=== PATIENT | female | born 1945 | race Caucasian/White ===

== ENCOUNTER 2020-01-19 10:48 | Outpatient (CLI) | payer MEDICARE, BC, SELFPAY ==
--- NOTE | ~2020-01-19 | MM_ITS ---
EXAMINATION: MM screening [facility] [place] HISTORY: Screening mammogram TECHNIQUE: Craniocaudal and mediolateral oblique 3-D tomosynthesis images were obtained and synthetic 2-D images were generated. CAD analysis was submitted and interpreted. COMPARISON: 01/12/2019, 11/12/2017 BREAST PARENCHYMAL COMPOSITION: The breasts are almost entirely fatty. FINDINGS: Scattered benign-appearing calcifications are present. There is no evidence of suspicious m ass, calcification, or architectural distortion to suggest malignancy in either breast. There has bee n no suspicious interval change. IMPRESSION: 1. No mammographic evidence of malignancy. 2. Recommend routine screening mammography in one year. BI-RADS Category 2: Benign finding(s). Reviewed, dictated and finalized at location A.
== END 2020-01-19 10:49 | disposition home or self-care (01) ==
PROVIDERS: PCP Emergency Medicine; Visit Provider Emergency Medicine
DX: Z12.31 Encounter for screening mammogram for malignant neoplasm of breast (principal)
CPT/HCPCS: 77063; 77067

== ENCOUNTER 2020-04-11 02:20 | Outpatient (CLI) | payer MEDICARE, BC, SELFPAY ==
[2020-04-11 18:39] LABS: SARS-CoV-2 RNA PCR Negative
== END 2020-04-11 02:21 | disposition home or self-care (01) ==
LOC: ANHCOVIDDT 02:21
PROVIDERS: PCP Emergency Medicine; Visit Provider Internal Medicine Gastroenterology
DX: Z01.812 Encounter for preprocedural laboratory examination (principal); Z20.828 Contact with and (suspected) exposure to other viral communicable diseases
CPT/HCPCS: 87635; C9803; U0003

== ENCOUNTER 2020-04-13 00:22 | Day surgery (SDC) | payer MEDICARE, BC, SELFPAY ==
[2020-04-05 12:58] VITALS: BMI 35.2
[2020-04-13] MEDS: LACTATED RINGERS 1,000 ML 150 ML IV CONT (06:54)
--- NOTE | 2020-04-13 06:57 | WPDANESEPPF ---
Anes - Initial Pre Proc Eval Procedure: Operation Date: 04/13/20 08:00 Proposed Procedures p Colonoscopy - Dakota Garcia MD Date/Time: 04/13/20 06:57 Surgeon: Dakota Garcia MD Pre Op Diagnosis: Change In Bowel Patient Data Age: 74 Gender: F Height: 1.63 m Weight: 93 kg Allergies Allergy/AdvReac Type Severity Reaction Status Date / Time hydrocodone Allergy Severe NAUSEA AND Verified 04/13/20 06:57 DIZZINESS Sulfa (Sulfonamide Allergy Severe RASH/SOB Verified 04/13/20 06:57 Antibiotics) Cephalosporins Allergy Unknown Rash Verified 04/13/20 06:57 doxycycline Allergy Unknown Rash Verified 04/13/20 06:57 Penicillins Allergy Unknown Rash Verified 04/13/20 06:57 sulfamethizole Allergy Unknown Rash Verified 04/13/20 06:57 trimethoprim Allergy Unknown Rash Verified 04/13/20 06:57 codeine AdvReac Severe DIZZINESS,N Verified 04/13/20 06:57 AUSEA Home Medications Medication Instructions Recorded Confirmed Type cetirizine 10 mg tablet 10 mg PO DAILY PRN 08/23/19 04/05/20 History lifitegrast 5 % eye drops in a See Rx Instructions OPHTHALMIC 08/23/19 04/05/20 History dropperette (EYE) .COMPLEX verapamil 180 mg tablet,extended 180 mg PO .COMPLEX 08/23/19 04/05/20 History release simvastatin 10 mg tablet 10 mg PO .Daily in evening #90 09/15/19 04/05/20 Rx tablet losartan 100 mg tablet 100 mg PO .COMPLEX #90 tablet 11/03/19 04/05/20 Rx losartan 25 mg tablet 25 mg PO .COMPLEX #90 tablet 11/03/19 04/05/20 Rx tramadol 50 mg tablet 50 mg PO Q6H PRN #20 tablet 01/26/20 04/05/20 Rx pantoprazole 40 mg tablet,delayed 40 mg PO BID #180 tablet 02/10/20 04/05/20 Rx release sitagliptin 100 mg tablet 100 mg PO DAILY #90 tablet 02/27/20 04/05/20 Rx apixaban 5 mg tablet See Rx Instructions .ROUTE 03/02/20 04/05/20 Rx .COMPLEX #60 tablet levothyroxine 125 mcg tablet See Rx Instructions .ROUTE 03/20/20 04/05/20 Rx .COMPLEX #90 tablet acetaminophen [Tylenol Extra 1,000 mg PO BID PRN 04/05/20 04/05/20 History Strength] Patient hx anesthesia problems: none Family hx anesthesia problems: none [facility] Social History Social History Smoking status: Former smoker Alcohol intake: never Anes - Eval Final PreProcedure Day of Procedure 04/13/20 06:57 Patient weight: obese Heart: regular rate and rhythm Lungs: clear to auscultation and normal air movement Airway: Mallampati scale class II Neurological: alert and oriented Last oral intake: >/= 8 hours ASA classification: III Emergent: no Anesthetic plan: proceed Anesthesia type and monitoring: general GIVS Informed Consent: The patient's anesthetic plan and its attendant risks and benefits were discussed with the patient/family/POA. Questions were solicited and answers provided to the satisfaction of the patient/family/POA.
[2020-04-13 06:58] LABS: Glucose Point of Care 95 (65-105)
[2020-04-13 06:59] VITALS: BP 142/85; PULSE 67; RESP 18; TEMP 36.4; O2SAT 97; BMI 34.9
--- NOTE | 2020-04-13 07:25 | PM.HPGS ---
History of Present Illness History of Present Illness Consent: Risks, benefits, and alternatives have been discussed and questions answered. Patient agrees to proceed with procedure. Chief complaint: Change In Bowel Narrative: Ankita Kelley is a 74 year old female who has been bothered by frequent diarrhea. Some days she has several loose stools. She denies significant pain cramping. Has a family history of colon cancer in a cousin. [facility] Family History Family History Mother Hypertension Family history of coronary artery disease Family history of heart disease in male family member before age 55 Patient's mother is , Onset Age: 88 Sibling Hypertension Family history of diabetes mellitus in first degree relative Family history of lung cancer Family history of heart disease in male family member before age 55 Family history of malignant neoplasm, Onset Age: 62 Father Family history of diabetes mellitus in first degree relative Patient's father is , Onset Age: 51 Other Carcinoma of colon Social History Social History Smoking status: Former smoker Alcohol intake: never Meds Home Medications and Allergies Home Medications Medication Instructions Recorded Confirmed Type cetirizine 10 mg tablet 10 mg PO DAILY PRN 08/23/19 04/13/20 History lifitegrast 5 % eye drops in a See Rx Instructions OPHTHALMIC 08/23/19 04/13/20 History dropperette (EYE) .COMPLEX verapamil 180 mg tablet,extended 180 mg PO .COMPLEX 08/23/19 04/13/20 History release simvastatin 10 mg tablet 10 mg PO .Daily in evening #90 09/15/19 04/13/20 Rx tablet losartan 100 mg tablet 100 mg PO .COMPLEX #90 tablet 11/03/19 04/13/20 Rx losartan 25 mg tablet 25 mg PO .COMPLEX #90 tablet 11/03/19 04/13/20 Rx tramadol 50 mg tablet 50 mg PO Q6H PRN #20 tablet 01/26/20 04/13/20 Rx pantoprazole 40 mg tablet,delayed 40 mg PO BID #180 tablet 02/10/20 04/13/20 Rx release sitagliptin 100 mg tablet 100 mg PO DAILY #90 tablet 02/27/20 04/13/20 Rx apixaban 5 mg tablet See Rx Instructions .ROUTE 03/02/20 04/13/20 Rx .COMPLEX #60 tablet levothyroxine 125 mcg tablet See Rx Instructions .ROUTE 03/20/20 04/13/20 Rx .COMPLEX #90 tablet acetaminophen [Tylenol Extra 1,000 mg PO BID PRN 04/05/20 04/13/20 History Strength] Allergies Allergy/AdvReac Type Severity Reaction Status Date / Time hydrocodone Allergy Severe NAUSEA AND Verified 04/13/20 06:57 DIZZINESS Sulfa (Sulfonamide Allergy Severe RASH/SOB Verified 04/13/20 06:57 Antibiotics) Cephalosporins Allergy Unknown Rash Verified 04/13/20 06:57 doxycycline Allergy Unknown Rash Verified 04/13/20 06:57 Penicillins Allergy Unknown Rash Verified 04/13/20 06:57 sulfamethizole Allergy Unknown Rash Verified 04/13/20 06:57 trimethoprim Allergy Unknown Rash Verified 04/13/20 06:57 codeine AdvReac Severe DIZZINESS,N Verified 04/13/20 06:57 AUSEA Vital Signs Vital Signs - 24 hr 04/13/20 06:59 Temperature 36.4 C Pulse Rate 67 Respiratory Rate 18 Blood Pressure 142/85 H Pulse Oximetry 97 Exam Resp: Auscultation: clear to auscultation bilaterally Cardio: Rate: regular rate Rhythm: regular rhythm GI: GI Palp: Yes Soft to palpation and No Tenderness to palpation present (GI) Assessment and Plan Assessment and plan (1) Change in bowel habits: Code(s): R19.4 - Change in bowel habit Status: Acute Assessment and Plan: Colonoscopy with possible biopsy or polypectomy or cautery or injection of substances.
[2020-04-13] MEDS: SIMETHICONE ORAL SUSPENSION 20 MG/0.3 ML 30 ML BOTTLE 0.6 ML IRRIGATION (08:01)
[2020-04-13 08:11] VITALS: BP 117/71; PULSE 65; RESP 20; O2SAT 97
[2020-04-13 08:21] VITALS: BP 119/76; PULSE 63; RESP 20; O2SAT 96
[2020-04-13 08:31] VITALS: BP 137/82; PULSE 58; RESP 16; O2SAT 97
== END 2020-04-13 08:50 | disposition home or self-care (01) ==
PROVIDERS: PCP Emergency Medicine; Visit Provider Internal Medicine Gastroenterology
PROC: 0DJD8ZZ Inspection of Lower Intestinal Tract, Via Natural or Artificial Opening Endoscopic (ICD-10-PCS; CPT 45378; principal; 2020-04-13 08:00)
DX: R19.7 Diarrhea, unspecified (principal); K57.30 Diverticulosis of large intestine without perforation or abscess without bleeding; K64.4 Residual hemorrhoidal skin tags; Z79.01 Long term (current) use of anticoagulants; Z87.891 Personal history of nicotine dependence; E66.9 Obesity, unspecified; Z68.34 Body mass index [BMI] 34.0-34.9, adult
CPT/HCPCS: 45378; J2704; J7120

== ENCOUNTER 2020-05-17 10:49 | Emergency (ER) | payer MEDICARE, BC, SELFPAY ==
[2020-05-17 11:18] VITALS: BP 148/77; PULSE 70; RESP 20; TEMP 36.6; O2SAT 98
--- NOTE | 2020-05-17 11:46 | ED.FEMALEGU ---
HPI - Female Genitourinary General Chief complaint: Urogenital-Female Stated complaint: uti Source: patient Mode of arrival: ambulatory Limitations: no limitations History of Present Illness HPI Narrative: 74 year old female presents to complaints of urinary frequency, urgency, pain, burning lower abdominal pressure since yesterday. Patient reports that she has a long history of urinary tract infections. Patient reports that she was placed on Levaquin 3 to 4 months ago for urinary tract infection. Patient denies fever, bodies, chills, nausea, vomiting, diarrhea or vaginal discharge. MD elicited complaint: dysuria and UTI Vaginal discharge: none Vaginal bleeding: none Urinary symptoms: Dysuria, Urgency and Frequency Exacerbating factors: none Relieving factors: none Treatment prior to arrival: none Related Data Home Medications Medication Instructions Recorded Confirmed cetirizine 10 mg tablet 10 mg PO DAILY PRN 08/23/19 05/17/20 lifitegrast 5 % eye drops in a See Rx Instructions OPHTHALMIC 08/23/19 05/17/20 dropperette (EYE) .COMPLEX acetaminophen [Tylenol Extra 1,000 mg PO BID PRN 04/05/20 05/17/20 Strength] Allergies Allergy/AdvReac Type Severity Reaction Status Date / Time hydrocodone Allergy Severe NAUSEA AND Verified 05/17/20 11:33 DIZZINESS Sulfa (Sulfonamide Allergy Severe RASH/SOB Verified 05/17/20 11:33 Antibiotics) doxycycline Allergy Unknown Rash Verified 05/17/20 11:33 Penicillins Allergy Unknown Rash Verified 05/17/20 11:33 sulfamethizole Allergy Unknown Rash Verified 05/17/20 11:33 trimethoprim Allergy Unknown Rash Verified 05/17/20 11:33 codeine AdvReac Severe DIZZINESS,N Verified 05/17/20 11:33 AUSEA Review of Systems Review of Systems: All systems reviewed & are unremarkable except as noted in HPI and below Constitutional: Constitutional: Denies chills and Denies fatigue Cardiovascular: Cardiovascular: Denies no additional cardiovascular complaints, Denies chest pain and Denies radiating jaw, neck or arm pain Respiratory: Respiratory: Denies cough, Denies dyspnea and Denies wheezing Gastrointestinal: Gastrointestinal: Reports abdominal pain, Denies constipation, Denies diarrhea, Denies nausea and Denies vomiting Genitourinary: Genitourinary: Denies hematuria, Reports nocturia, Reports dysuria and Denies vaginal discharge Neurologic: Denies dizziness, Denies headache(s), Denies numbness and Denies weakness Endocrine: Endocrine: Denies fatigue PMFSH Past Medical History Medical History (Updated 05/17/20 @ 11:51 by Shahida Angelo APRN) Afib Cholecystectomy planned HLD (hyperlipidemia) HTN (hypertension) Hypothyroidism (acquired) Tonsillectomy planned Family History Family History Mother Hypertension Family history of coronary artery disease Family history of heart disease in male family member before age 55 Patient's mother is , Onset Age: 88 Sibling Hypertension Family history of diabetes mellitus in first degree relative Family history of lung cancer Family history of heart disease in male family member before age 55 Family history of malignant neoplasm, Onset Age: 62 Father Family history of diabetes mellitus in first degree relative Patient's father is , Onset Age: 51 Other Carcinoma of colon Social History Social History Smoking status: Former smoker Alcohol intake: never Exam Const: General: healthy appearing, no acute distress and alert Orientation/consciousness: patient oriented x3 Neck: Neck: normal visual inspection Resp: Effort & Inspection: normal respiratory effort, not labored and not tachypneic Auscultation: clear to auscultation bilaterally, no crackles, no rales, no rhonchi and no wheezes Cardio: Rate: regular rate, not bradycardic and not tachycardic Rhyt
== END 2020-05-17 12:00 | disposition home or self-care (01) ==
PROVIDERS: Emergency Provider Nurse Practitioner Family; PCP Emergency Medicine
DX: N39.0 Urinary tract infection, site not specified (principal); Z87.891 Personal history of nicotine dependence; I48.91 Unspecified atrial fibrillation; E78.5 Hyperlipidemia, unspecified; I10 Essential (primary) hypertension; E03.9 Hypothyroidism, unspecified
CPT/HCPCS: 81003; 87077; 87086; 87088; 87186; 99213; G0463

== ENCOUNTER → 2020-05-17 11:58 | Outpatient (CLI) | payer MEDICARE, BC, SELFPAY ==
--- NOTE | ~2020-05-17 | XR_ITS ---
EXAMINATION: XR shoulder LT min 2V DATE: 05/17/2020 12:21 INDICATION: Left shoulder pain. TECHNIQUE: 4 views of left shoulder were obtained. COMPARISON: None. FINDINGS: Bone alignment is normal. No fracture. There is mild osteoarthritis of glenohumeral joint a nd acromioclavicular joint. IMPRESSION: 1. Polyarticular osteoarthritis. Reviewed, dictated and finalized at location A.
--- NOTE | ~2020-05-17 | XR_ITS ---
EXAMINATION: XR shoulder RT min 2V DATE: 05/17/2020 12:22 INDICATION: Right shoulder pain. TECHNIQUE: 4 views of right shoulder were obtained. COMPARISON: Right shoulder radiographs 08/26/2017 FINDINGS: Bone alignment is normal. No fracture. There is mild osteoarthritis of glenohumeral joint a nd acromioclavicular joint. Calcified right hilar and mediastinal lymph nodes are consistent with old granulomatous disease. IMPRESSION: 1. Mild polyarticular osteoarthritis. Reviewed, dictated and finalized at location A.
== END ==
PROVIDERS: PCP Emergency Medicine; Visit Provider Emergency Medicine
DX: M19.011 Primary osteoarthritis, right shoulder (principal); M19.012 Primary osteoarthritis, left shoulder
CPT/HCPCS: 73030; 81003; 87077; 87086; 87088; 87186; 99213; G0463

== ENCOUNTER → 2020-07-25 12:06 | Outpatient (CLI) | payer MEDICARE, BC, SELFPAY ==
--- NOTE | ~2020-07-25 | MR_ITS ---
EXAMINATION: MR shoulder LT wo con DATE: 07/25/2020 13:36 INDICATION: Left shoulder pain and radiculopathy TECHNIQUE: Magnetic resonance imaging (MRI) of the left shoulder was performed without intravenous co ntrast. Sequences included axial PD-weighted FS FSE, coronal oblique PD-weighted FS FSE, coronal obli que T2-weighted FS FSE, sagittal PD-weighted FS FSE, and sagittal T1-weighted SE. COMPARISON: None. FINDINGS: Coracoacromial arch: The acromion undersurface is curved in morphology (type II). The coracoacromial ligament is normal. M ild acromioclavicular osteoarthritis. Rotator cuff: Mild supraspinatus and moderate infraspinatus tendinopathy without discrete tear. The teres minor ten don is normal. Mild subscapularis tendinopathy with small longitudinal split tear between the portion of the tendon attached to the lesser tuberosity and the right-sided portion of the tendon contiguous with the transverse humeral ligament. The tear measures 4 mm craniocaudally and propagating 1.5 cm m edially from the medial rim of the intertubercular groove. Normal rotator cuff muscle bulk and signal . Biceps tendon, glenoid labrum and glenohumeral cartilage: Long head of the biceps tendon is normal. There is a bucket-handle tear extending from the 11:30 posi tion of the superior glenoid labrum posteriorly to the 8:00 position. More irregular appearing tear a t the anterosuperior labrum which appears to extend into the superior glenohumeral and coracohumeral ligaments both which appear thickened with disorganized architecture consistent with partial tear. Th ere is a small likely paralabral cyst measuring 3 mm diameter and extending 11 mm anteroposteriorly a long the medial aspect of the coracohumeral ligament. Partial-thickness cartilage loss with smooth ch ondral surface and without degenerative subchondral changes along the apex and inferomedial aspects o f the humeral head. Glenoid cartilage appears relatively preserved. Fluid: Small glenohumeral joint effusion with proportional extension of a small amount fluid along the long head biceps tendon sheath an subcoracoid recess. No loose osteochondral bodies. Small amount of fluid in the subacromial/subdeltoid bursa consistent with mild bursitis. Bones: Normal marrow signal with no edema, fracture or pathologic marrow replacing process. IMPRESSION: 1. Mild subscapularis tendinopathy with small mild longitudinal split tear at the cephalad aspect of the tendon. 2. Mild supraspinatus and moderate infraspinatus tendinopathy without discrete tear. 3. Labral tear with irregular macerated appearance anteroinferiorly extending to the superior glenohu meral and coracohumeral ligaments and with bucket-handle configuration at the superior to posterior l abrum. 4. Mild glenohumeral and acromioclavicular osteoarthritis. Reviewed, dictated and finalized at location A. ICE CENTER TECHNICIAN IMPRESSION: 1. Mild subscapularis tendinopathy with small mild longitudinal split tear at t he cephalad aspect of the tendon. 2. Mild supraspinatus and moderate infraspinatus tendinopathy without discrete tear. 3. Labral tear with irregular macerated appearance anteroinferiorly extending t o the superior glenohumeral and coracohumeral ligaments and with bucket-handle configuration at the superior to posterior labrum. 4. Mild glenohumeral and acromioclavicular osteoarthritis.
== END ==
PROVIDERS: PCP Emergency Medicine; Visit Provider Emergency Medicine
DX: M54.10 Radiculopathy, site unspecified (principal); M19.012 Primary osteoarthritis, left shoulder
CPT/HCPCS: 73221

== ENCOUNTER → 2020-07-28 10:32 | Outpatient (CLI) | payer MEDICARE, BC, SELFPAY ==
--- NOTE | ~2020-07-28 | MR_ITS ---
EXAMINATION: MR shoulder RT wo con DATE: 07/28/2020 12:04 INDICATION: Severe right shoulder weakness and pain TECHNIQUE: Magnetic resonance imaging (MRI) of the right shoulder was performed without intravenous c ontrast. Sequences included axial PD-weighted FS FSE, coronal oblique PD-weighted FS FSE, coronal obl ique T2-weighted FS FSE, sagittal PD-weighted FS FSE, and sagittal T1-weighted SE. COMPARISON: Right shoulder radiographs dated 05/17/2020 FINDINGS: Coracoacromial arch: The acromion undersurface is curved in morphology (type II). The coracoacromial ligament is normal. M ild acromioclavicular osteoarthritis. Rotator cuff: Moderate supraspinatus, infraspinatus and subscapularis tendinopathy. There is a deep articular sided tear of the distal supraspinatus tendon which measures 8 mm AP along the superior facet footplate an d involves at least two thirds of the tendon thickness. Some of the remaining bursal sided fibers nash ear frayed and plaques and are of questionable functional integrity. The tear defect measures 1 cm me dial to lateral. There is a very small split tear between the bursal side of the subscapularis tendon and the course of the tendon attached to the medial rim of the intertubercular groove. Additional sm all longitudinal split tear with 8 x 5 x 1 mm intrasubstance fluid collection between the otherwise i ntact appearing fibers of the infraspinatus tendon approximately 1.5 cm from the middle facet footpla te. Normal rotator cuff muscle bulk and signal. Biceps tendon, glenoid labrum and glenohumeral cartilage: Moderate tendinopathy and longitudinal split tearing of the long head biceps tendon centered at the j unction of the intra-articular and extra articular portions of the tendon. Amorphous increased signal at the posterior superior glenoid labrum consistent with degenerative tearing which extends along th e free edge of the posterior labrum. Glenohumeral cartilage is normal. Fluid: Small glenohumeral joint effusion extends into the long head biceps tendon sheath. There is some debr is versus synovitis along side the long head biceps tendon at the level of the intertubercular groove . No loose osteochondral bodies. Fluid in the subacromial/subdeltoid bursa consistent with moderate b ursitis. Bones: Bone alignment is normal. No fracture or pathologic marrow replacing process. There are some cystic c hange along the lateral rim of the intertubercular groove. IMPRESSION: 1. Moderate rotator cuff tendinopathy with small deep articular sided tear at the distal supraspinatu s tendon and separate small intrasubstance longitudinal split tears at the distal subscapularis tendo n at the critical zone of the infraspinatus tendon. 2. Bicipital tenosynovitis with moderate tendinopathy and longitudinal split tearing at the junction of the intra-articular and extra articular portions of the tendon. 3. Degenerative tearing at the posterior superior to posterior glenoid labrum. 4. Likely reactive small glenohumeral joint effusion. 5. Moderate subacromial/subdeltoid bursitis. Reviewed, dictated and finalized at location A. TER LATHER IMPRESSION: 1. Moderate rotator cuff tendinopathy with small deep articular sided tear at t he distal supraspinatus tendon and separate small intrasubstance longitudinal s plit tears at the distal subscapularis tendon at the critical zone of the infra spinatus tendon. 2. Bicipital tenosynovitis with moderate tendinopathy and longitudinal split te aring at the junction of the intra-articular and extra articular portions of th e tendon. 3. Degenerative tearing at the posterior superior to posterior glenoid labrum. 4. Likely reactive small glenohumeral joint effusion. 5. Moderate subacromial/subdeltoid bursitis.
== END ==
PROVIDERS: PCP Emergency Medicine; Visit Provider Orthopaedic Surgery
DX: M25.411 Effusion, right shoulder (principal); M75.51 Bursitis of right shoulder; M75.21 Bicipital tendinitis, right shoulder
CPT/HCPCS: 73221

== ENCOUNTER 2020-08-08 12:48 | Outpatient (CLI) | payer MEDICARE, BC, SELFPAY ==
--- NOTE | ~2020-08-08 | XR_ITS ---
EXAMINATION: XR chest 2V 08/08/2020 13:18 INDICATION: Hypertension. Reflux. PROCEDURE: 2 view chest COMPARISON: Comparison to multiple prior studies sequentially, with oldest reviewed study dated 07/24. FINDINGS: The lungs are clear. The cardiomediastinal silhouette is within normal limits. There are no pleural effusions. There is no pneumothorax suspected. IMPRESSION: 1: NO ACUTE CARDIOPULMONARY DISEASE. Reviewed, dictated and finalized at location A. R BOAT CAPTAIN
--- NOTE | 2020-08-08 12:51 | ECG_ITS ---
Measurements Intervals Cougar Rate: 67 P: 43 HI: 131 QRS: 18 QRSD: 89 T: 31 QT: 412 QTc: 436 Interpretive Statements SINUS RHYTHM BASELINE ARTIFACT- I, II, AVR, AVL, AVF NORMAL ECG Electronically Signed On 08-08-2020 13:16:14 PROPERTY AND EQUIPMENT CLERK by Addy Giron D.O.
[2020-08-08 13:40] LABS: Anion Gap 8 mmol/L (8-16); Blood Urea Nitrogen 13 mg/dL (7-17); Calcium 9.6 mg/dL (8.4-10.2); Carbon Dioxide 30 mmol/L (22-30); Chloride 103 mmol/L (98-107); Estimated Glomerular Filt Rate > 60; Glucose 110 mg/dL (65-105); Potassium 4.2 mmol/L (3.4-5.0); Sodium 141 mmol/L (137-145)
== END 2020-08-08 12:49 | disposition home or self-care (01) ==
PROVIDERS: Anesthesiology; PCP Emergency Medicine; Visit Provider Orthopaedic Surgery
DX: Z01.818 Encounter for other preprocedural examination (principal); G56.01 Carpal tunnel syndrome, right upper limb; E11.9 Type 2 diabetes mellitus without complications; I10 Essential (primary) hypertension
CPT/HCPCS: 36415; 71046; 80048; 93005

== ENCOUNTER 2020-08-11 01:55 | Outpatient (CLI) | payer MEDICARE, BC, SELFPAY ==
[2020-08-11 18:59] LABS: SARS-CoV-2 RNA PCR Negative
== END 2020-08-11 01:56 | disposition home or self-care (01) ==
LOC: ANHCOVIDDT 01:55
PROVIDERS: PCP Emergency Medicine; Visit Provider Orthopaedic Surgery
DX: Z01.818 Encounter for other preprocedural examination (principal); Z20.828 Contact with and (suspected) exposure to other viral communicable diseases
CPT/HCPCS: 87635; C9803; U0003

== ENCOUNTER → 2020-08-13 12:27 | Outpatient (CLI) | payer MEDICARE, BC, SELFPAY ==
--- NOTE | ~2020-08-13 | XR_ITS ---
EXAMINATION: [id number] INDICATION: Left lateral chest pain TECHNIQUE: A frontal view of the chest and 3 views of the left ribs were obtained. COMPARISON: 08/08/2020 FINDINGS: The lungs are free of acute opacities. There is no pleural effusion or pneumothorax. The ca rdiomediastinal silhouette is normal. Calcified right hilar and mediastinal lymph nodes are consisten t with old granulomatous disease. No displaced rib fracture is identified. There is mild osteoarthrit is of the glenohumeral and acromioclavicular joints. Surgical clips in the right upper quadrant are l ikely from prior cholecystectomy. IMPRESSION: 1. No acute cardiopulmonary abnormality or evidence of displaced rib fracture. Reviewed, dictated and finalized at location A. ULATION REVIEWER
--- NOTE | ~2020-08-13 | XR_ITS ---
EXAMINATION: XR finger 2nd LT min 2V INDICATION: Left second finger pain TECHNIQUE: Four views of the left second finger are obtained. COMPARISON: 03/19/2019 FINDINGS: There is no fracture, dislocation, or subluxation. Moderate chronic osteoarthritis is noted in the interphalangeal joints there is soft tissue swelling of the second finger. IMPRESSION: 1. Soft tissue swelling of the second finger without acute osseous abnormality. Reviewed, dictated and finalized at location A. AGENT
== END ==
PROVIDERS: PCP Emergency Medicine; Visit Provider Emergency Medicine
DX: R52 Pain, unspecified (principal); M79.89 Other specified soft tissue disorders
CPT/HCPCS: 71101; 73140

== ENCOUNTER 2021-03-21 16:15 | Outpatient (CLI) | payer MEDICARE, BC, SELFPAY ==
--- NOTE | ~2021-03-21 | MM_ITS ---
EXAMINATION: MM screening [facility] [place] HISTORY: Screening mammogram TECHNIQUE: Craniocaudal and mediolateral oblique 3-D tomosynthesis images were obtained and synthetic 2-D images were generated. CAD analysis was submitted and interpreted. COMPARISON: 01/19/2020, 01/12/2019, 11/12/2017 bilateral digital screening mammogram examinations BREAST PARENCHYMAL COMPOSITION: The breasts are almost entirely fatty. FINDINGS: Multiple bilateral benign calcifications are again noted. There is no evidence of suspiciou s mass, calcification, or architectural distortion to suggest malignancy in either breast. There has been no suspicious interval change. IMPRESSION: 1. No mammographic evidence of malignancy. 2. Recommend routine screening mammography in one year. BI-RADS Category 2: Benign finding(s). Reviewed, dictated and finalized at location A.
== END 2021-03-21 16:16 | disposition home or self-care (01) ==
LOC: ANHIMG 16:17
PROVIDERS: PCP Emergency Medicine; Visit Provider Emergency Medicine
DX: Z12.31 Encounter for screening mammogram for malignant neoplasm of breast (principal)
CPT/HCPCS: 77063; 77067

== ENCOUNTER 2021-08-02 14:04 | Emergency (ER) | payer MEDICARE, BC, SELFPAY ==
--- NOTE | ~2021-08-02 | CT_ITS ---
EXAMINATION: CT brain wo [facility] EXAM DATE: 08/02/2021 14:55 INDICATION: Fall, posterior head injury. TECHNIQUE: Spiral CT of the head was performed without contrast. Axial, coronal and sagittal images were reviewed. The dose-length product (DLP) for this examination was 605.33 mGy-cm. The exposure w as tailored according to patient size, and iterative reconstruction (ASIR) was used as additional dos e reduction technique. There is no prior study for comparison. FINDINGS: There is no acute intraparenchymal hemorrhage. No evidence of intraparenchymal brain mass lesion. No evidence of acute infarction. Please note that initial head CT has limited sensitivity f or small or acute infarctions. There is mild periventricular and subcortical hypodensity, nonspecifi c but probably related to small vessel ischemic disease. There is moderate prominence of the sulci and ventricles related to cerebral atrophy. There is intracranial carotid arteriosclerosis. There are no extra-axial collections. There is no mass effect or midline shift. Patient has had bilateral ocular lens surgery. Soft tissue is unremarkable. The visualized sinuses and mastoid air cells are well aerated. IMPRESSION: 1. No acute intracranial findings. 2. Chronic age related findings. Reviewed, dictated and finalized at location A. STITCH HEMMER
--- NOTE | ~2021-08-02 | XR_ITS ---
EXAMINATION: XR hip LT 2V w AP pelvis EXAM DATE: 08/02/2021 15:02 INDICATION: Initial encounter following injury, with pain of the left hip. TECHNIQUE: Left hip frontal, 'frog leg' projections for interpretation. Frontal projection pelvis. There is no prior study for comparison. FINDINGS: Smooth left hip femoral head contour, no radiographic evidence of avascular necrosis. Ther e is mild symmetric bilateral hip primary osteoarthritis. There are no acute fractures or dislocation s identified. There is no subcutaneous gas. The soft tissue is unremarkable. There are no radiopa que foreign bodies. IMPRESSION: No acute osseous findings. Reviewed, dictated and finalized at location A. ERCIAL LENDER IMPRESSION: No acute osseous findings.
[2021-08-02 14:15] VITALS: BP 147/79; PULSE 74; RESP 18; TEMP 36.2; O2SAT 99
--- NOTE | 2021-08-02 14:29 | ED.FALL ---
HPI - Fall General Chief Complaint: Fall Stated Complaint: fall Time Seen by Provider: 08/02/21 14:23 Source: RN notes reviewed History of Present Illness HPI Narrative: Patient presents emergency department from home for a fall. Patient states that prior to arrival she was sitting on a barstool wrapping [place] presents when she dropped the tape she bit down to get the tape the barstool fell back and feeling on her buttocks falling back and striking her head. She denies any loss of consciousness states that she is on Eliquis and came to the ER secondary concern of head bleed. She does note pain in her left buttocks and hip region as well she has been able to walk following the accident did not take any pain medication she denies any vision changes numbness or tingling in extremities chest pain shortness of breath abdominal pain nausea vomiting or any other symptoms Related Data Home Medications Medication Instructions Recorded Confirmed cetirizine 10 mg tablet 10 mg PO DAILY PRN 08/23/19 08/07/20 lifitegrast 5 % eye drops in a 1 drp OPHTHALMIC (EYE) BID 08/23/19 08/07/20 dropperette acetaminophen [Tylenol Extra 1,000 mg PO BID PRN 04/05/20 08/07/20 Strength] losartan 25 mg PO QPM 08/07/20 08/07/20 apixaban 5 mg tablet 5 mg PO BID tablet 04/02/21 tramadol 50 mg tablet See Rx Instructions .ROUTE .COMPLEX 04/02/21 Allergies Allergy/AdvReac Type Severity Reaction Status Date / Time Sulfa (Sulfonamide Allergy Severe RASH/SOB Verified 07/16/21 15:17 Antibiotics) Penicillins Allergy Unknown Rash, HIVES Verified 07/16/21 15:17 sulfamethizole Allergy Unknown Rash Verified 07/16/21 15:17 trimethoprim Allergy Unknown Rash Verified 07/16/21 15:17 codeine AdvReac Severe DIZZINESS,NAUSEA, Verified 07/16/21 15:17 VOMITING hydrocodone AdvReac Severe NAUSEA,VOMITING, Verified 07/16/21 15:17 DIZZINESS doxycycline AdvReac Unknown RINGING IN Verified 07/16/21 15:17 EARS, DIZZINESS Review of Systems Review of Systems: Gen.: Denies fevers or chills Eyes: Denies eye pain or visual change ENT: Denies congestion Respiratory: Denies shortness of breath or cough CV: Denies chest pain or palpitations GI: Denies abdominal pain nausea, emesis or diarrhea Musculoskeletal: See HPI Neuro: Reports striking head denies loss of consciousness Skin: Denies rash Except as documented, all other systems reviewed and negative PMFSH Past Medical History Medical History (Updated 08/02/21 @ 15:16 by Maurice Yepez DO) Afib Cholecystectomy planned HLD (hyperlipidemia) HTN (hypertension) Hypothyroidism (acquired) Tonsillectomy planned Family History Family History Mother Hypertension Family history of coronary artery disease Family history of heart disease in male family member before age 55 Patient's mother is , Onset Age: 88 Sibling Hypertension Family history of diabetes mellitus in first degree relative Family history of lung cancer Family history of heart disease in male family member before age 55 Family history of malignant neoplasm, Onset Age: 62 Father Family history of diabetes mellitus in first degree relative Patient's father is , Onset Age: 51 Other Carcinoma of colon Social History Social History Smoking packs per day: 1 Smoking cigarettes per day: 20.0 Years smoked: 7 Smoking pack-years: 7.00 Smoking status: Former smoker Smoking end date: 02/21/70 Alcohol intake: never Substance use: never Spiritual care concerns: No Exam Narrative: APPEARANCE: Well appearing, no apparent distress, well-nourished. HEENT: normocephalic mild swelling ecchymosis over left occiput no facial tenderness EYES: PERRL NECK: Supple. No midline tenderness to palpation. Full range of motion without pain RESPIRATORY: No respi
[2021-08-02] MEDS: ACETAMINOPHEN 500 MG TABLET 1000 MG PO (15:10)
[2021-08-02 15:40] VITALS: TEMP 36.2
== END 2021-08-02 15:40 | disposition home or self-care (01) ==
LOC: ANHED 15:37
PROVIDERS: Emergency Provider Emergency Medicine; PCP Emergency Medicine
DX: S00.03XA Contusion of scalp, initial encounter (principal); S70.02XA Contusion of left hip, initial encounter; I48.91 Unspecified atrial fibrillation; E78.5 Hyperlipidemia, unspecified; I10 Essential (primary) hypertension; E03.9 Hypothyroidism, unspecified; Z79.01 Long term (current) use of anticoagulants; Z87.891 Personal history of nicotine dependence; W08.XXXA Fall from other furniture, initial encounter
CPT/HCPCS: 70450; 73502; 99284; A9270

== ENCOUNTER → 2021-08-22 09:35 | Outpatient (CLI) | payer MEDICARE, BC, SELFPAY ==
[2021-08-22 20:33] LABS: SARS-CoV-2 RNA PCR Negative
== END ==
PROVIDERS: PCP Emergency Medicine; Visit Provider Nurse Practitioner Family
DX: R68.89 Other general symptoms and signs (principal); Z20.822 Contact with and (suspected) exposure to COVID-19
CPT/HCPCS: C9803; U0003; U0005

== ENCOUNTER 2022-04-14 12:38 | Outpatient (CLI) | payer MEDICARE, BC, SELFPAY ==
--- NOTE | ~2022-04-14 | MM_ITS ---
EXAMINATION: MM screening [facility] BI w [place] HISTORY: Screening TECHNIQUE: Craniocaudal and mediolateral oblique 3-D tomosynthesis images were obtained and synthetic 2-D images were generated. CAD analysis was submitted and interpreted. COMPARISON: Comparison to multiple prior studies sequentially, with oldest reviewed study dated 11/12. BREAST PARENCHYMAL COMPOSITION: The breasts are almost entirely fatty. FINDINGS: There are benign bilateral breast calcifications. There is no evidence of suspicious mass, calcification, or architectural distortion to suggest malignancy in either breast. There has been no suspicious interval change. IMPRESSION: 1. No mammographic evidence of malignancy. 2. Recommend routine screening mammography in one year. BI-RADS Category 1: Negative Reviewed, dictated and finalized at location A.
== END 2022-04-14 12:39 | disposition home or self-care (01) ==
LOC: ANHIMG 12:39
PROVIDERS: PCP Emergency Medicine; Visit Provider Emergency Medicine
DX: Z12.31 Encounter for screening mammogram for malignant neoplasm of breast (principal)
CPT/HCPCS: 77063; 77067

== ENCOUNTER 2022-11-19 09:55 | Outpatient (CLI) | payer MEDICARE, BC, SELFPAY ==
[2022-11-19 19:16] LABS: Alanine Aminotransferase 19 U/L (6-35); Albumin Level 4.5 g/dL (3.5-5.1); Alkaline Phosphatase 47 U/L (38-126); Anion Gap 10 mmol/L (8-16); Aspartate Amino Transferase 22 U/L (14-36); Bilirubin,Total 0.7 mg/dL (0.2-1.3); Blood Urea Nitrogen 18 mg/dL (7-17); Calcium 9.2 mg/dL (8.4-10.2); Carbon Dioxide 21 mmol/L (22-30); Chloride 108 mmol/L (98-107); Cholesterol 161 mg/dL (0-200); Estimated Glomerular Filt Rate 48; Glucose 120 mg/dL (65-110); HDL Direct 40 mg/dL; Potassium 4.5 mmol/L (3.4-5.0); Sodium 139 mmol/L (137-145); Triglycerides 185 mg/dL (<150)
[2022-11-19 19:27] LABS: LDL Cholesterol Direct 88 mg/dL
[2022-11-19 19:40] LABS: Hemoglobin A1C 6.1 % (<5.7)
== END 2022-11-19 09:56 | disposition home or self-care (01) ==
PROVIDERS: PCP Emergency Medicine; Visit Provider Emergency Medicine
DX: E11.9 Type 2 diabetes mellitus without complications (principal); I10 Essential (primary) hypertension; E78.5 Hyperlipidemia, unspecified; I48.0 Paroxysmal atrial fibrillation
CPT/HCPCS: 36415; 80053; 80061; 83036; 84443

== ENCOUNTER 2023-02-27 14:40 | Emergency (ER) | payer MEDICARE, BC, SELFPAY ==
[2023-02-27 14:58] VITALS: BP 126/72; PULSE 84; RESP 16; TEMP 36.7; O2SAT 100
--- NOTE | 2023-02-27 14:58 | ED.LOWEXIN ---
HPI - Extremity Injury (Lower) General Chief Complaint: Extremity Injury, Lower Stated Complaint: Injured left lower leg Time Seen by Provider: 02/27/23 14:58 Source: patient Mode of arrival: ambulatory Limitations: no limitations History of Present Illness HPI Narrative: 77 yo F presents with abrasions to L ibarra. Four days ago was climbing up onto chair to clean top of her fridge but slipped and L ibarra hit against wooden chair causing multiple abrasions. Pt states she had bruising and swelling. has been elevating when at rest. found some old clindamycin and has been taking 1 pill twice a day for 2 days. Today reports increase in pain and swelling and feels like L leg is warm to touch. afebrile. Ambulatory with normal gait. All systems reviewed and negative except as noted above. Related Data Home Medications Medication Instructions Recorded Confirmed cetirizine 10 mg tablet (Zyrtec) 10 mg PO DAILY PRN Allergy Symptoms 08/23/19 02/27/23 lifitegrast 5 % eye drops in a 1 drp ophthalmic (eye) BID 08/23/19 02/27/23 dropperette (Xiidra) acetaminophen 500 mg tablet 1,000 mg PO BID PRN Pain 04/05/20 02/27/23 (Tylenol Extra Strength) tramadol 50 mg tablet See Rx Instructions .Route .COMPLEX 04/02/21 02/27/23 medroxyprogesterone 5 mg tablet 5 mg PO DAILY 01/29/22 02/27/23 spironolactone 25 mg tablet See Rx Instructions .Route .COMPLEX 01/29/22 02/27/23 Allergies Allergy/AdvReac Type Severity Reaction Status Date / Time Sulfa (Sulfonamide Allergy Severe RASH/SOB Verified 02/27/23 14:50 Antibiotics) Penicillins Allergy Unknown Rash, HIVES Verified 02/27/23 14:50 sulfamethizole Allergy Unknown Rash Verified 02/27/23 14:50 trimethoprim Allergy Unknown Rash Verified 02/27/23 14:50 codeine AdvReac Severe DIZZINESS,NAUSEA, Verified 02/27/23 14:50 VOMITING hydrocodone AdvReac Severe NAUSEA,VOMITING, Verified 02/27/23 14:50 DIZZINESS doxycycline AdvReac Unknown RINGING IN Verified 02/27/23 14:50 EARS, DIZZINESS Review of Systems Review of Systems: CONSTITUTIONAL: Denies fever, chills, or sweats. EYES: Denies visual changes, redness, or discharge. ENT: Denies rhinorrhea, congestion, sore throat, or otalgia. CARDIOVASCULAR: Denies chest pain, palpitations, or edema. RESPIRATORY: Denies cough or dyspnea. GASTROINTESTINAL: Denies abdominal pain, nausea, vomiting, or diarrhea. GENITOURINARY: Denies dysuria or hematuria. SKIN: Reports multiple abrasions to left ibarra with swelling, redness and warmth to touch. MUSCULOSKELETAL: Denies back pain, joint pain, or myalgia. NEUROLOGIC: Denies headache, numbness, or weakness. PSYCHIATRIC: Denies anxiety or depression. All other systems reviewed are negative, except as documented in HPI. [facility] Past Medical History Medical History (Updated 02/27/23 @ 15:08 by Maame Sullivan NP) Afib Cholecystectomy planned HLD (hyperlipidemia) HTN (hypertension) Hypothyroidism (acquired) Tonsillectomy planned Family History Family History Mother Hypertension Family history of coronary artery disease Family history of heart disease in male family member before age 55 Patient's mother is , Onset Age: 88 Sibling Hypertension Family history of diabetes mellitus in first degree relative Family history of lung cancer Family history of heart disease in male family member before age 55 Family history of malignant neoplasm, Onset Age: 62 Father Family history of diabetes mellitus in first degree relative Patient's father is , Onset Age: 51 Other Carcinoma of colon Social History Social History Smoking packs per day: 1 Smoking cigarettes per day: 20.0 Years smoked: 7 Smoking pack-years: 7.00 Smoking status: Former smoker Smoking end date: 02/21/70 Alcohol intake: never Substance use: nev
== END 2023-02-27 15:11 | disposition home or self-care (01) ==
PROVIDERS: Emergency Provider Nurse Practitioner Family; PCP Emergency Medicine
DX: L03.116 Cellulitis of left lower limb (principal); Z87.891 Personal history of nicotine dependence; I48.91 Unspecified atrial fibrillation; E78.5 Hyperlipidemia, unspecified; I10 Essential (primary) hypertension; E03.9 Hypothyroidism, unspecified
CPT/HCPCS: 99213; G0463

== ENCOUNTER 2023-04-16 12:17 | Outpatient (CLI) | payer MEDICARE, BC, SELFPAY ==
--- NOTE | ~2023-04-16 | MM_ITS ---
EXAMINATION: MM screening [facility] w [place] HISTORY: Screening mammogram TECHNIQUE: Craniocaudal and mediolateral oblique 3-D tomosynthesis images were obtained and synthetic 2-D images were generated. CAD analysis was submitted and interpreted. COMPARISON: 04/14/2022, 03/21/2021 bilateral screening mammogram examinations BREAST PARENCHYMAL COMPOSITION: The breasts are almost entirely fatty. FINDINGS: Multiple bilateral benign calcifications are again noted. There is no evidence of suspiciou s mass, calcification, or architectural distortion to suggest malignancy in either breast. There has been no suspicious interval change. IMPRESSION: 1. No mammographic evidence of malignancy. 2. Recommend routine screening mammography in one year. BI-RADS Category 2: Benign finding(s). Reviewed, dictated and finalized at location A.
== END 2023-04-16 12:18 | disposition home or self-care (01) ==
LOC: CHSIMG 12:18
PROVIDERS: PCP Emergency Medicine
DX: Z12.31 Encounter for screening mammogram for malignant neoplasm of breast (principal)
CPT/HCPCS: 77063; 77067

== ENCOUNTER 2023-06-04 11:22 | Outpatient (CLI) | payer MEDICARE, BC, SELFPAY ==
[2023-06-04 19:25] LABS: Alanine Aminotransferase 20 U/L (6-35); Albumin Level 4.2 g/dL (3.5-5.1); Alkaline Phosphatase 60 U/L (38-126); Anion Gap 8 mmol/L (8-16); Aspartate Amino Transferase 35 U/L (14-36); Bilirubin,Total 0.8 mg/dL (0.2-1.3); Blood Urea Nitrogen 14 mg/dL (7-17); Calcium 8.9 mg/dL (8.4-10.2); Carbon Dioxide 22 mmol/L (22-30); Chloride 107 mmol/L (98-107); Cholesterol 159 mg/dL (0-200); Estimated Glomerular Filt Rate 48; Glucose 183 mg/dL (65-110); HDL Direct 37 mg/dL; Sodium 137 mmol/L (137-145); Triglycerides 174 mg/dL (<150)
[2023-06-04 19:36] LABS: LDL Cholesterol Direct 88 mg/dL
[2023-06-04 19:44] LABS: Vitamin D 25 Hydroxy 23.6 ng/mL
[2023-06-04 20:20] LABS: Hematocrit 42.3 % (37.0-47.0); Hemoglobin 14.1 g/dL (12.0-15.0); Mean Corpuscular HGB Conc 33.3 g/dl (32-36); Mean Corpuscular Volume 95.9 fl (80-100); Mean Platelet Volume 10.5 fl (7.4-10.4); Platelet Count Result 292 k/mm3 (150-375); Red Blood Count 4.41 M/mm3 (4.2-5.4); Red Cell Distribution Width 12.8 % (11.5-14.5); White Blood Count 12.8 K/mm3 (4.5-10.0)
[2023-06-04 21:36] LABS: Hemoglobin A1C 6.2 % (<5.7)
[2023-06-07 12:45] LABS: Vitamin D 1,25 (OH)2 Total 17 pg/mL (18-72); Vitamin D2 1,25 (OH)2 <8 pg/mL; Vitamin D3 1,25 (OH)2 17 pg/mL
== END 2023-06-04 11:23 | disposition home or self-care (01) ==
PROVIDERS: PCP Emergency Medicine; Visit Provider Emergency Medicine
DX: E55.9 Vitamin D deficiency, unspecified (principal); I10 Essential (primary) hypertension; E78.5 Hyperlipidemia, unspecified; E11.9 Type 2 diabetes mellitus without complications; E03.9 Hypothyroidism, unspecified
CPT/HCPCS: 36415; 80053; 80061; 82306; 82652; 83036; 84443; 85027

== ENCOUNTER 2023-08-18 13:00 | Outpatient (RCR) | payer MEDICARE, BC, SELFPAY ==
--- NOTE | 2023-08-05 14:34 | OTOPEVAL1 ---
Assessment and note entered by Brandt Collado, DIAMOND/Gardenia, CHT Evaluation Information Diagnosis Right CMC OA, trigger thumb left thumb, right middle finger trigger finger Subjective Information Patient is right handed. Reports she has been dropping items, having difficulty tying shoes, opening jars, etc. She has had injections in the right thumb CMC and left thumb A1 ricky. This has provided some relief. Assessment OT Clinical Summary Patient referred to OT with right thumb CMC OA, right middle finger trigger finger, and left thumb trigger thumb. She has been having difficulties with ADLs due to the pain, reporting she frequently drops items. Skilled OT indicated for use of modalities, manual therapy, therapeutic activities/exercise, orthotic fabrication and fitting, and education on adaptive equipment and joint protection techniques to facilitate optimal functional hand use. Plan of Care Interventions Therapeutic Exercise,Manual Therapy,Therapeutic Activities,Hot Pack/Cold Pack,Check Out for Orthotic/Pr,Ultrasound,Paraffin OT Services Indicated Yes Treatment Frequency and 2x/week for 4 weeks Duration These treatments will address the objective and functional deficits as defined above. The patient will be advanced safely and appropriately in order for the patient to progress towards his/her prior level of function. Additional exercises will be introduced and as well as a comprehensive home exercise program upon discharge, if needed, ?to ensure carryover of functional gains achieved in the clinic. This treatment plan has been reviewed and agreement upon by the patient.
--- NOTE | 2023-08-05 14:34 | OPREHPOC ---
Outpatient Therapy Plan of Care This is a Multidisciplinary Plan of Care that may contain components documented by all disciplines (PT, OT, and ST.) OT Problem 1 OT Problem #1 Knowledge Deficit OT Goal 1 Goal 1. Patient to be independent with instructed materials. 2. Patient to adhere to splint wearing schedule. Target Visit 8 OT Problem 2 OT Problem #2 Pain OT Goal 1 Goal 1. Patient to report reduced pain in bilateral hands during ADLs to 1/10 or less. Target Visit 8 OT Problem 3 OT Problem #3 Impaired Strength OT Goal 1 Goal 1. Patient to be able to complete light computer programming professor/pinch strengthening HEP x5 minutes with at least yellow theraputty without reports of pain or flexor tendon triggering . Target Visit 8
--- NOTE | 2023-08-11 15:39 | PCOTNOTE ---
Patient called & cancelled scheduled appointment this date.
--- NOTE | 2023-08-13 15:19 | PCOTNOTE ---
Patient did not show up for scheduled appointment this date. Called patient who reports she's in the ER with/for her .
--- NOTE | 2023-08-27 10:07 | PCOTNOTE ---
Patient called and cancelled stating she hurt her knee and will reschedule the re-eval another time.
--- NOTE | 2023-09-01 15:42 | OTOPDC ---
Assessment and note entered by Brandt Collado, DIAMOND/Gardenia, OT DISCHARGE NOTE 09/01/23 OT Clinical Summary Patient referred to OT with dx of right CMC OA, left trigger thumb, right middle finger trigger finger. She progressed to no longer experiencing any triggering. A hand based thumb spica was fabricated for CMC OA and she reports good fit. She unfortunately was unable to return for more therapy sessions due to having too much going on at home. Discharging today without a formal reassessment.
== END 2023-09-02 09:08 | disposition home or self-care (01) ==
LOC: ANHGOSHOT 13:00
PROVIDERS: PCP Emergency Medicine; Visit Provider Plastic Surgery
DX: M18.11 Unilateral primary osteoarthritis of first carpometacarpal joint, right hand (principal); M65.312 Trigger thumb, left thumb
CPT/HCPCS: 97018; 97110; 97165; 99199; L3913; L3933

== ENCOUNTER 2023-08-25 09:44 | Emergency (ER) | payer MEDICARE, BC, SELFPAY ==
--- NOTE | ~2023-08-25 | CT_ITS ---
EXAMINATION: CT knee LT wo con DATE: 08/25/2023 11:47 INDICATION: Left knee pain TECHNIQUE: High resolution computed tomography (CT) of the left knee was performed without intravenou s contrast. Additional sagittal and coronal reconstructions were performed. Automated exposure contro l and iterative reconstruction technique were employed. The dose-length product was 648.16 mGy-cm. COMPARISON: Left knee radiographs dated 08/25/2023 FINDINGS: Again seen is a cemented left total knee arthroplasty with patellar resurfacing which remains in near -anatomic alignment. No periprosthetic lucency to suggest loosening or infection. No fracture. No lef t knee joint effusion. Peripheral vascular calcifications along the popliteal artery extending into t he anterior and posterior tibial and peroneal arteries at the proximal calf. Soft tissues are unremar kable. IMPRESSION: 1. Left total knee arthroplasty in near-anatomic alignment. No joint effusion or acute osseous abnorm ality. Reviewed, dictated and finalized at location A. ICATIONS DEVELOPER IMPRESSION: 1. Left total knee arthroplasty in near-anatomic alignment. No joint effusion o r acute osseous abnormality.
--- NOTE | ~2023-08-25 | XR_ITS ---
Left Knee Technique: AP, lateral, and sunrise views were obtained. Clinical History: Pain Findings: No fracture or dislocation is seen. Left knee arthroplasty hardware is in place. Soft tissu es are unremarkable. No joint effusion is seen. Impression: No acute abnormality. Left knee arthroplasty in place. Reviewed, dictated and finalized at location . K SWITCHER Impression: No acute abnormality. Left knee arthroplasty in place.
--- NOTE | ~2023-08-25 | XR_ITS ---
AP view of the pelvis and AP and lateral views of the left hip Clinical history: Pain Findings: No acute fracture or dislocation is seen. Osseous alignment is anatomic. Bilateral hip and SI joint spaces are preserved. Soft tissues are unremarkable. Impression: No significant abnormality is seen. Reviewed, dictated and finalized at [facility]. ATRIC NURSE Impression: No significant abnormality is seen.
[2023-08-25 10:07] VITALS: BP 151/106; PULSE 69; RESP 16; TEMP 36.4; O2SAT 98
--- NOTE | 2023-08-25 11:00 | ED.LOWEXIN ---
HPI - Extremity Injury (Lower) General Chief Complaint: Extremity Injury, Lower Stated Complaint: knee and hip pain Time Seen by Provider: 08/25/23 11:01 Source: patient Mode of arrival: ambulatory Limitations: no limitations History of Present Illness HPI Narrative: Ankita is a 77-year-old female patient presenting to the ER today with complaints of left knee and hip pain. She reports that she tweaked her knee yesterday. Also reports that she fell on her knee 2 weeks ago. Is having pain in the joint of the knee. History of left knee arthroplasty. Is having most pain with ambulation Related Data Home Medications Medication Instructions Recorded Confirmed cetirizine 10 mg tablet (Zyrtec) 10 mg PO DAILY PRN Allergy Symptoms 08/23/19 07/31/23 lifitegrast 5 % eye drops in a 1 drp ophthalmic (eye) BID 08/23/19 07/31/23 dropperette (Xiidra) acetaminophen 500 mg tablet 1,000 mg PO BID PRN Pain 04/05/20 07/31/23 (Tylenol Extra Strength) tramadol 50 mg tablet See Rx Instructions .Route .COMPLEX 04/02/21 07/31/23 medroxyprogesterone 5 mg tablet 5 mg PO DAILY 01/29/22 07/31/23 spironolactone 25 mg tablet See Rx Instructions .Route .COMPLEX 01/29/22 07/31/23 nitrofurantoin 100 mg PO BID 06/03/23 07/31/23 monohydrate/macrocrystals 100 mg capsule (Macrobid) metoprolol succinate 50 mg 50 mg PO DAILY 06/26/23 07/31/23 tablet,extended release 24 hr Allergies Allergy/AdvReac Type Severity Reaction Status Date / Time Sulfa (Sulfonamide Allergy Severe RASH/SOB Verified 07/31/23 08:49 Antibiotics) Penicillins Allergy Unknown Rash, HIVES Verified 07/31/23 08:49 sulfamethizole Allergy Unknown Rash Verified 07/31/23 08:49 trimethoprim Allergy Unknown Rash Verified 07/31/23 08:49 codeine AdvReac Severe DIZZINESS,NAUSEA, Verified 07/31/23 08:49 VOMITING hydrocodone AdvReac Severe NAUSEA,VOMITING, Verified 07/31/23 08:49 DIZZINESS doxycycline AdvReac Unknown RINGING IN Verified 07/31/23 08:49 EARS, DIZZINESS Review of Systems Review of Systems: Pertinent positives per HPI. Patient denies any fever, chills, rash, headache, visual changes, dizziness, cough, runny nose, sore throat, shortness of breath, chest pain, palpitations, nausea, vomiting, diarrhea, constipation, abdominal pain, or any urinary issues. [facility] Past Medical History Medical History (Updated 08/25/23 @ 13:02 by Don Pa APRN) Afib Cholecystectomy planned HLD (hyperlipidemia) HTN (hypertension) Hypothyroidism (acquired) Tonsillectomy planned Family History Family History Mother Hypertension Family history of coronary artery disease Family history of heart disease in male family member before age 55 Patient's mother is , Onset Age: 88 Sibling Hypertension Family history of diabetes mellitus in first degree relative Family history of lung cancer Family history of heart disease in male family member before age 55 Family history of malignant neoplasm, Onset Age: 62 Father Family history of diabetes mellitus in first degree relative Patient's father is , Onset Age: 51 Other Carcinoma of colon Social History Social History Smoking packs per day: 1 Smoking cigarettes per day: 20.0 Years smoked: 7 Smoking pack-years: 7.00 Smoking status: Former smoker Smoking end date: 02/21/70 Alcohol intake: never Substance use: never Lack of Transportation: No Lack of Food: Never True Current Housing: I Have Housing Concerned About Future Housing: No Difficulty Paying Gas/Electric Bills: No Difficulty Paying for Meds: No Currently Unemployed: No Education: Associate Degree Difficulty w/ Childcare or Family Care: No Living arrangements: with family Spiritual care concerns: No Comments At the time of my signatu
[2023-08-25 13:10] VITALS: BP 152/100; PULSE 74; RESP 17; O2SAT 97
== END 2023-08-25 13:16 | disposition home or self-care (01) ==
PROVIDERS: Emergency Provider Nurse Practitioner Family; PCP Emergency Medicine
DX: M25.562 Pain in left knee (principal); M54.32 Sciatica, left side; I10 Essential (primary) hypertension; E78.5 Hyperlipidemia, unspecified; E03.9 Hypothyroidism, unspecified; I48.91 Unspecified atrial fibrillation; Z87.891 Personal history of nicotine dependence; W19.XXXA Unspecified fall, initial encounter
CPT/HCPCS: 73502; 73564; 73700; 99284

== ENCOUNTER → 2023-09-03 13:50 | Outpatient (CLI) | payer MEDICARE, BC, SELFPAY ==
--- NOTE | ~2023-09-03 | MR_ITS ---
. EXAMINATION: MR lumbar spine wo con DATE: 09/03/2023 14:43 INDICATION: Lumbar radiculopathy. Low back pain. TECHNIQUE: Magnetic resonance imaging (MRI) of the lumbar spine was performed without intravenous con trast. Sequences included sagittal T2-weighted FSE, sagittal T2-weighted FS FSE, sagittal T1-weighted FSE, and axial T2-weighted FSE. COMPARISON: Lumbar spine MRI 11/14/2005 FINDINGS: There is 6 degrees levocurvature of lumbar spine. There is 3 mm anterolisthesis of L3 on L4 . Vertebral body heights are normal. There is moderately decreased disc height at L2-L3 and L3-L4 and severely decreased disc height at L4-L5 and L5-S1. The distal spinal cord signal intensity is normal . The conus medullaris is at L1-L2. The following disc levels are specifically discussed: L1-L2: The disc does not extend beyond the endplate margin. There is severe bilateral facet joint ost eoarthritis. There is no neural foraminal stenosis. There is no central canal stenosis. L2-L3: The disc is bulging and has an annular fissure. There is severe bilateral facet joint osteoart hritis. There is mild bilateral neural foraminal stenosis. There is mild central canal stenosis. L3-L4: The disc is bulging with superimposed left foraminal extrusion. There is severe bilateral face t joint osteoarthritis. There is moderate and moderate left neural foraminal stenosis. There is mild central canal stenosis. L4-L5: The disc is bulging and has an annular fissure. There is severe bilateral facet joint osteoart hritis. There is moderate bilateral neural foraminal stenosis. There is mild central canal stenosis. L5-S1: The disc is bulging and has an annular fissure. There is mild bilateral facet joint osteoarthr itis. There is mild bilateral neural foraminal stenosis. There is mild central canal stenosis. IMPRESSION: 1. Severe lumbar spondylosis, worsened from 11/14/2005. Reviewed, dictated and finalized at location A. MOBILE WASHER STEAM
== END ==
PROVIDERS: PCP Emergency Medicine; Visit Provider Orthopaedic Surgery
DX: M43.06 Spondylolysis, lumbar region (principal)
CPT/HCPCS: 72148

== ENCOUNTER 2023-09-29 15:44 | Outpatient (CLI) | payer MEDICARE, BC, SELFPAY ==
[2023-09-29 20:07] LABS: Alanine Aminotransferase 17 U/L (6-35); Albumin Level 4.6 g/dL (3.5-5.1); Alkaline Phosphatase 56 U/L (38-126); Anion Gap 7 mmol/L (8-16); Aspartate Amino Transferase 27 U/L (14-36); Bilirubin,Total 0.6 mg/dL (0.2-1.3); Blood Urea Nitrogen 16 mg/dL (7-17); Calcium 9.8 mg/dL (8.4-10.2); Carbon Dioxide 24 mmol/L (22-30); Chloride 110 mmol/L (98-107); Estimated Glomerular Filt Rate 54; Glucose 128 mg/dL (65-110); Sodium 141 mmol/L (137-145)
[2023-09-29 20:16] LABS: Hemoglobin A1C 7.4 % (<5.7)
== END 2023-09-29 15:45 | disposition home or self-care (01) ==
LOC: ANHGOSHLAB 15:47
PROVIDERS: PCP Emergency Medicine; Visit Provider Family Medicine
DX: I48.0 Paroxysmal atrial fibrillation (principal); E03.9 Hypothyroidism, unspecified; E11.9 Type 2 diabetes mellitus without complications; I10 Essential (primary) hypertension
CPT/HCPCS: 36415; 80053; 83036; 84443

== ENCOUNTER 2023-11-06 16:02 | Emergency (ER) | payer MEDICARE, BC, SELFPAY ==
[2023-11-06] VITALS (14 sets, daily range): BP systolic 89–150; BP diastolic 59–82; PULSE 67–137; RESP 13–17; TEMP 36.6–36.9; O2SAT 97–99
--- NOTE | ~2023-11-06 | XR_ITS ---
EXAMINATION: XR chest 1V portable 11/06/2023 16:30 INDICATION: Dizziness. Atrial fibrillation. PROCEDURE: AP portable chest COMPARISON: Comparison to multiple prior studies sequentially, with oldest reviewed study dated 07/25. FINDINGS: The lungs are clear. The cardiomediastinal silhouette is within normal limits. There are no pleural effusions. There is no pneumothorax suspected. IMPRESSION: 1: NO ACUTE CARDIOPULMONARY DISEASE. Reviewed, dictated and finalized at location A.
--- NOTE | 2023-11-06 16:05 | ECG_ITS ---
Measurements Intervals [place] Rate: 128 P: 60 [place]: 129 QRS: 30 QRSD: 122 T: 12 QT: 346 QTc: 505 Interpretive Statements SINUS RHYTHM WITH INTERMITTENT ATRIAL TACHYCARDIA WITH RAPID VENTRICULAR RESPONSE RIGHT BUNDLE BRANCH BLOCK BASELINE ARTIFACT- II, III, AVL, AVF ABNORMAL ECG COMPARED TO ECG 08/08/2020 13:30:45 INTERMITTENT ATRIAL TACHYCARDIA NOW PRESENT RIGHT BUNDLE-BRANCH BLOCK NOW PRESENT Electronically Signed On 11-06-2023 16:39:52 CDT by Addy Giron D.O.
[2023-11-06] MEDS: LACTATED RINGERS 1,000 ML 999 ML IV CONT ×2 (16:19→17:31)
[2023-11-06] MEDS: METOPROLOL TARTRATE INJ 5 MG/5 ML VIAL IV PUSH ×2 (16:20→16:31)
[2023-11-06 16:29] LABS: Basophils Absolute Auto 0.1 K/mm3 (0.0-0.1); Basophils Percent Auto 0.6 % (0.2-1.2); Eosinophils Absolute Auto 0.1 K/mm3 (0-0.3); Eosinophils Percent Auto 0.5 % (0-4.4); Hematocrit 45.8 % (37.0-47.0); Hemoglobin 15.3 g/dL (12.0-15.0); Immature Granulocyte Absolute 0.05 K/mm3 (0.00-0.031); Immature Granulocyte Percent A 0.3 % (0-0.5); Lymphocytes Absolute Auto 4.61 K/mm3 (0.9-3.2); Lymphocytes Percent Auto 31.3 % (18.3-44.2); Mean Corpuscular HGB Conc 33.4 g/dl (32-36); Mean Corpuscular Hemoglobin 30.8 pg (26-34); Mean Corpuscular Volume 92.3 fl (80-100); Mean Platelet Volume 10.1 fl (7.4-10.4); Monocytes Absolute Auto 1.2 K/mm3 (0.1-0.6); Monocytes Percent Auto 8.1 % (2.6-8.5); Neutrophils Absolute Auto 8.7 K/mm3 (1.3-6.7); Neutrophils Percent Auto 59.2 % (45.5-73.1); Platelet Count Result 260 k/mm3 (150-375); Red Blood Count 4.96 M/mm3 (4.2-5.4); Red Cell Distribution Width 13.2 % (11.5-14.5); White Blood Count 14.7 K/mm3 (4.5-10.0)
[2023-11-06] MEDS: METOPROLOL TARTRATE 50 MG TAB 25 MG PO (16:30)
--- NOTE | 2023-11-06 16:32 | ED.CHESTPAIN ---
HPI - Chest Pain General Chief Complaint: Chest Pain Stated Complaint: CP, dizziness Time Seen by Provider: 11/06/23 16:08 History of Present Illness HPI narrative: patient presenting here with palpitations, she does have a history palpitations/ SVT, for which she is taking metoprolol. She was in the GI lab with her , who is very sick, and has been feeling pretty stressed about it. She felt the palpitations coming on, today 25 mg p.r.n. dose of her metoprolol tartrate, has not felt any improvement, so came in here. Getting slightly lightheaded with the rate being high. Feels like she may not have had enough to drink recently. Related Data Home Medications Medication Instructions Recorded Confirmed lifitegrast 5 % eye drops in a 1 drp ophthalmic (eye) BID 08/23/19 09/29/23 dropperette (Xiidra) medroxyprogesterone 5 mg tablet 5 mg PO DAILY 01/29/22 09/29/23 cetirizine 10 mg tablet (Zyrtec) 10 mg PO DAILY Allergy Symptoms 09/16/23 09/29/23 metoprolol succinate 50 mg 75 mg PO DAILY 09/16/23 09/29/23 tablet,extended release 24 hr acetaminophen 500 mg tablet 1,000 mg PO QHS PRN Pain 09/29/23 09/29/23 (Tylenol Extra Strength) losartan 100 mg tablet 100 mg PO DAILY 09/29/23 09/29/23 losartan 25 mg tablet 25 mg PO DAILY 09/29/23 09/29/23 metoprolol tartrate 25 mg tablet 25 mg PO .PRN 09/29/23 09/29/23 pantoprazole 40 mg tablet,delayed 40 mg PO DAILY 09/29/23 09/29/23 release simvastatin 10 mg tablet 10 mg PO QHS 09/29/23 09/29/23 sitagliptin phosphate 100 mg 100 mg PO DAILY 09/29/23 09/29/23 tablet (Januvia) spironolactone 25 mg tablet 25 mg PO DAILY 09/29/23 09/29/23 tramadol 50 mg tablet 50 mg PO QID PRN 09/29/23 09/29/23 Allergies Allergy/AdvReac Type Severity Reaction Status Date / Time Sulfa (Sulfonamide Allergy Severe RASH/SOB Verified 02/06/24 14:38 Antibiotics) Penicillins Allergy Unknown Rash, HIVES Verified 09/29/23 14:38 codeine AdvReac Severe DIZZINESS,NAUSEA, Verified 09/29/23 14:38 VOMITING hydrocodone AdvReac Severe NAUSEA,VOMITING, Verified 09/29/23 14:38 DIZZINESS doxycycline AdvReac Unknown RINGING IN Verified 09/29/23 14:38 EARS, DIZZINESS Review of Systems Review of Systems: CONST: No fever. HEENT: No sore throat C/V: Palpitations RESP: No cough GI: No abdominal pain : No dysuria. M/S: No joint pain. SKIN: No rash. NEURO: lightheadedness PSYCH: stressed PMFSH Past Medical History Medical History Afib Arthritis Cervical spinal stenosis Chronic back pain Diabetes mellitus Environmental allergies GERD (gastroesophageal reflux disease) HLD (hyperlipidemia) HTN (hypertension) Hypothyroidism (acquired) IBS (irritable bowel syndrome) Irritable bowel syndrome with diarrhea Lumbar spondylosis Spinal stenosis Trigger finger, right middle finger Vitamin D deficiency disease Surgical History Surgical History History of cholecystectomy (~2006) History of hysteroscopy (~05/2023) History of left knee replacement (~2016) History of tonsillectomy (~1951) Family History Family History Mother Hypertension Family history of coronary artery disease Family history of heart disease in male family member before age 55 Patient's mother is , Onset Age: 88 Sibling Hypertension Family history of diabetes mellitus in first degree relative Family history of lung cancer Family history of heart disease in male family member before age 55 Family history of malignant neoplasm, Onset Age: 62 Father Family history of diabetes mellitus in first degree relative Patient's father is , Onset Age: 51 Hypertension Other Carcinoma of colon Social History Social History Smoking pa
[2023-11-06 16:38] LABS: INR 1.2; Prothrombin Time 15.6 Seconds (11.1-14.7)
[2023-11-06 16:40] LABS: Alanine Aminotransferase 20 U/L (6-35); Albumin Level 4.7 g/dL (3.5-5.1); Alkaline Phosphatase 59 U/L (38-126); Anion Gap 10 mmol/L (8-16); Aspartate Amino Transferase 26 U/L (14-36); Bilirubin,Total 0.7 mg/dL (0.2-1.3); Blood Urea Nitrogen 18 mg/dL (7-17); Calcium 9.8 mg/dL (8.4-10.2); Carbon Dioxide 21 mmol/L (22-30); Chloride 109 mmol/L (98-107); Estimated CRCL calculation 49 ml/min; Estimated Glomerular Filt Rate > 60; Glucose 129 mg/dL (65-110); Lipase 146 U/L (23-300); Partial Thromboplastin Time 30.9 Seconds (22.3-36.8); Potassium 4.1 mmol/L (3.4-5.0); Sodium 140 mmol/L (137-145)
[2023-11-06 16:45] LABS: Magnesium 1.7 mg/dL (1.6-2.3)
[2023-11-06 16:51] LABS: Troponin I < 0.012 ng/mL (0.000-0.034)
[2023-11-06] MEDS: dilTIAZem HCl INJ 25 MG/5 ML VIAL 15 MG IV PUSH (16:54)
[2023-11-06] MEDS: dilTIAZem 100 MG/100 ML 100 MG/100 ML BAG IV CONT (17:00)
--- NOTE | 2023-11-06 17:25 | ECG_ITS ---
Measurements Intervals [place] Rate: 74 P: 85 CT: 124 QRS: 30 QRSD: 126 T: 11 QT: 394 QTc: 438 Interpretive Statements SINUS RHYTHM RIGHT BUNDLE BRANCH BLOCK BASELINE ARTIFACT- I, III, AVR, AVL, AVF, V2, V4-V6 ABNORMAL ECG COMPARED TO ECG 11/06/2023 16:10:21 SINUS RHYTHM NOW PRESENT Electronically Signed On 11-06-2023 20:28:57 CDT by Addy Giron D.O.
[2023-11-06 19:54] LABS: Free T4 Free Thyroxine Reflex 0.96 ng/dL (0.78-2.19)
[2023-11-06 21:03] LABS: Total Triiodothyronine (T3) 0.93 NG/ML (0.97-1.69)
== END 2023-11-06 18:17 | disposition home or self-care (01) ==
PROVIDERS: Family Medicine; Emergency Provider Emergency Medicine; PCP Family Medicine
DX: I47.10 Supraventricular tachycardia, unspecified (principal); I48.91 Unspecified atrial fibrillation; I10 Essential (primary) hypertension; E11.9 Type 2 diabetes mellitus without complications; E03.9 Hypothyroidism, unspecified; E55.9 Vitamin D deficiency, unspecified; K21.9 Gastro-esophageal reflux disease without esophagitis; K58.9 Irritable bowel syndrome, unspecified; M19.90 Unspecified osteoarthritis, unspecified site; Z96.652 Presence of left artificial knee joint; Z87.891 Personal history of nicotine dependence; Z90.49 Acquired absence of other specified parts of digestive tract; Z79.01 Long term (current) use of anticoagulants; Z79.84 Long term (current) use of oral hypoglycemic drugs; I45.10 Unspecified right bundle-branch block; I47.19 Other supraventricular tachycardia
CPT/HCPCS: 36415; 71045; 80053; 83690; 83735; 84439; 84443; 84480; 84484; 85025; 85610; 85730; 93005; 96361; 96365; 96375; 99284; A9270; J7120

== ENCOUNTER 2023-11-12 11:17 | Outpatient (CLI) | payer MEDICARE, BC, SELFPAY | END 2023-11-12 11:18 | disposition home or self-care (01) | LOC: ANHGOSHLAB 11:20 | PROVIDERS: PCP Family Medicine; Visit Provider Family Medicine | DX: I48.0 Paroxysmal atrial fibrillation (principal); E03.9 Hypothyroidism, unspecified | CPT/HCPCS: 36415; 84443 ==

== ENCOUNTER 2024-02-29 10:07 | Emergency (ER) | payer MEDICARE, BC, SELFPAY ==
[2024-02-29] VITALS (13 sets, daily range): BP systolic 89–138; BP diastolic 52–89; PULSE 59–186; RESP 14–18; TEMP 36.7–36.8; O2SAT 97–100
--- NOTE | ~2024-02-29 | XR_ITS ---
EXAMINATION: XR chest 2V DATE: 02/29/2024 10:50 INDICATION: Atrial fibrillation presenting with palpitations TECHNIQUE: frontal and lateral views of the chest were obtained. COMPARISON: Chest radiograph dated 11/06/2023 FINDINGS: The lungs remain clear with no focal airspace opacities, pulmonary edema, pleural effusion or pneumot horax. Heart size is normal. Calcified right hilar and mediastinal lymph nodes consistent with old gr anulomatous disease. IMPRESSION: 1. No acute cardiopulmonary disease. Reviewed, dictated and finalized at location A.
--- NOTE | 2024-02-29 10:15 | ECG_ITS ---
Test Date: 2024-02-29 11:49:51 Measurements Intervals [place] Rate: 59 P: 50 WA: 141 QRS: 26 QRSD: 130 T: 7 QT: 444 QTc: 442 Interpretive Statements SINUS BRADYCARDIA WITH SINUS ARRHYTHMIA RIGHT BUNDLE BRANCH BLOCK BASELINE ARTIFACT- I, II, III, AVR, AVL, AVF, V1 ABNORMAL ECG No previous ECG available for comparison Electronically Signed On 02-29-2024 12:05:55 CDT by Addy Giron D.O.
[2024-02-29] MEDS: dilTIAZem HCl INJ 25 MG/5 ML VIAL 10 MG IV PUSH (10:30)
--- NOTE | 2024-02-29 10:38 | ED.SOB ---
HPI - SOB/Dyspnea General Chief Complaint: Shortness of Breath/Dyspnea Stated Complaint: SOB Time Seen by Provider: 02/29/24 10:16 Source: patient and old records reviewed Mode of arrival: EMS Limitations: no limitations History of Present Illness HPI Narrative: Patient is a 78 y/o female who presents to the ED via EMS with report of palpitations. Patient reports hx of AFIB/SVT, chronically anticoagulated on Eliquis. Was seen in the ED in October for these sx's, intermittent sinus rhythm with brief episodes of SVT. patient converted with diltiazem in the ED and was ultimately discharged home. She reports she began feeling recurrent palpitations this morning while driving to a doctor's appointment. She notes she feels very dizzy with the episodes of tachycardia. She then contacted EMS. Patient feels diaphoretic and dizzy currently. Denies chest pain. Denies shortness of breath. She does admit to nausea. She did take her home metoprolol this morning. Related Data Home Medications Medication Instructions Recorded Confirmed lifitegrast 5 % eye drops in a 1 drp ophthalmic (eye) BID 08/23/19 02/29/24 dropperette (Xiidra) medroxyprogesterone 5 mg tablet 5 mg PO DAILY 01/29/22 02/29/24 cetirizine 10 mg tablet (Zyrtec) 10 mg PO DAILY Allergy Symptoms 09/16/23 02/29/24 metoprolol succinate 50 mg 75 mg PO DAILY 09/16/23 02/29/24 tablet,extended release 24 hr acetaminophen 500 mg tablet 1,000 mg PO QHS PRN Pain 09/29/23 02/29/24 (Tylenol Extra Strength) pantoprazole 40 mg tablet,delayed 40 mg PO DAILY 09/29/23 02/29/24 release spironolactone 25 mg tablet 25 mg PO DAILY 09/29/23 02/29/24 tramadol 50 mg tablet 50 mg PO QID PRN Pain (Scale Score 09/29/23 02/29/24 7-10) empagliflozin 10 mg tablet 10 mg PO DAILY 02/29/24 02/29/24 (Jardiance) metoprolol succinate 100 mg mg PO 02/29/24 tablet,extended release 24 hr Allergies Allergy/AdvReac Type Severity Reaction Status Date / Time Sulfa (Sulfonamide Allergy Severe RASH/SOB Verified 02/29/24 14:44 Antibiotics) Penicillins Allergy Unknown Rash, HIVES Verified 02/29/24 14:44 codeine AdvReac Severe DIZZINESS,NAUSEA, Verified 02/29/24 14:44 VOMITING hydrocodone AdvReac Severe NAUSEA,VOMITING, Verified 02/29/24 14:44 DIZZINESS doxycycline AdvReac Unknown RINGING IN Verified 02/29/24 14:44 EARS, DIZZINESS Review of Systems Review of Systems: CONSTITUTIONAL: Denies fever, chills, or sweats. CARDIOVASCULAR: See HPI. RESPIRATORY: Denies cough or dyspnea. GASTROINTESTINAL: See HPI. NEUROLOGIC: See HPI All systems reviewed & are unremarkable except as noted in HPI and below PMFSH Past Medical History Medical History Afib Arthritis Cervical spinal stenosis Chronic back pain Diabetes mellitus Environmental allergies GERD (gastroesophageal reflux disease) HLD (hyperlipidemia) HTN (hypertension) Hypothyroidism (acquired) IBS (irritable bowel syndrome) Irritable bowel syndrome with diarrhea Lumbar spondylosis Spinal stenosis Trigger finger, right middle finger Vitamin D deficiency disease Surgical History Surgical History History of cholecystectomy (~2006) History of hysteroscopy (~05/2023) History of left knee replacement (~2016) History of tonsillectomy (~1951) Family History Family History Mother Hypertension Family history of coronary artery disease Family history of heart disease in male family member before age 55 Patient's mother is , Onset Age: 88 Sibling Hypertension Family history of diabetes mellitus in first degree relative Family history of lung cancer Family history of heart disease in male family member before age 55 Family history of malignant neoplasm, Onset Age: 62 Father Family
[2024-02-29 10:39] LABS: Basophils Absolute Auto 0.1 K/mm3 (0.0-0.1); Basophils Percent Auto 0.7 % (0.2-1.2); Eosinophils Absolute Auto 0.1 K/mm3 (0-0.3); Eosinophils Percent Auto 0.8 % (0-4.4); Hematocrit 45.2 % (37.0-47.0); Hemoglobin 15.5 g/dL (12.0-15.0); Immature Granulocyte Absolute 0.03 K/mm3 (0.00-0.031); Immature Granulocyte Percent A 0.2 % (0-0.5); Lymphocytes Absolute Auto 6.58 K/mm3 (0.9-3.2); Lymphocytes Percent Auto 48.3 % (18.3-44.2); Mean Corpuscular HGB Conc 34.3 g/dl (32-36); Mean Corpuscular Hemoglobin 30.9 pg (26-34); Mean Platelet Volume 10.4 fl (7.4-10.4); Monocytes Absolute Auto 1.3 K/mm3 (0.1-0.6); Monocytes Percent Auto 9.3 % (2.6-8.5); Neutrophils Absolute Auto 5.5 K/mm3 (1.3-6.7); Neutrophils Percent Auto 40.7 % (45.5-73.1); Platelet Count Result 249 k/mm3 (150-375); Red Blood Count 5.02 M/mm3 (4.2-5.4); Red Cell Distribution Width 13.2 % (11.5-14.5); White Blood Count 13.6 K/mm3 (4.5-10.0)
[2024-02-29 10:49] LABS: INR 1.3; Prothrombin Time 16.3 Seconds (11.1-14.7)
[2024-02-29 10:50] LABS: Partial Thromboplastin Time 29.6 Seconds (22.3-36.8)
[2024-02-29 10:59] LABS: NT Pro B Type Natriuretic Pept 814 pg/mL (19.9-100)
[2024-02-29 11:01] LABS: Alanine Aminotransferase 18 U/L (6-35); Albumin Level 4.6 g/dL (3.5-5.1); Alkaline Phosphatase 54 U/L (38-126); Anion Gap 14 mmol/L (4-12); Aspartate Amino Transferase 22 U/L (14-36); Bilirubin,Total 0.9 mg/dL (0.2-1.3); Blood Urea Nitrogen 19 mg/dL (7-17); Calcium 9.3 mg/dL (8.4-10.2); Carbon Dioxide 18 mmol/L (22-30); Chloride 111 mmol/L (98-107); Estimated CRCL calculation 49 ml/min; Estimated Glomerular Filt Rate 60; Glucose 159 mg/dL (65-110); Magnesium 1.8 mg/dL (1.6-2.3); Potassium 3.6 mmol/L (3.4-5.0); Sodium 143 mmol/L (137-145)
[2024-02-29] MEDS: SODIUM CHLORIDE 0.9% IV 1,000 ML 999 ML IV CONT (11:05)
[2024-02-29] MEDS: ONDANSETRON INJ 4 MG/2 ML VIAL IV PUSH (11:05)
[2024-02-29 11:12] LABS: Troponin I < 0.012 ng/mL (0.000-0.034)
[2024-02-29 11:38] LABS: Appearance Urine Clear (Clear); Bacteria Urine Rare /hpf; Bilirubin Urine Negative (Negative); Blood Urine Negative (Negative); Color Urine Yellow (Yellow); Glucose Urine UA 3+ mg/dL (Negative); Ketones Urine Negative (Negative); Leukocyte Esterase Ur Negative LEU/UL (Negative); Nitrate Urine Negative (Negative); Non Pathogenic Casts 0-2; Protein Urine Trace mg/dL (Negative); RBC Urine 0-2 /hpf (0-2); Specific Grav Ur 1.027 (1.001-1.035); Squamous Epithelial Cell Urine None Seen /hpf (Few); Urobilinogen Urine 0.2 mg/dL (<2.0); WBC Urine 0-5 /hpf (0-3); pH Urine 5.5 (5.0-9.0)
[2024-02-29 11:40] LABS: Add Urine Microscopic? YES
--- NOTE | 2024-02-29 11:43 | ECG_ITS ---
Test Date: 2024-02-29 10:16:33 Measurements Intervals [place] Rate: 162 P: 0 WA: 0 QRS: 62 QRSD: 114 T: -5 QT: 284 QTc: 466 Interpretive Statements SINUS RHYTHM CHANGES TO SUPRAVENTRICULAR TACHYCARDIA RIGHT BUNDLE BRANCH BLOCK ABNORMAL ECG No previous ECG available for comparison Electronically Signed On 02-29-2024 15:12:24 CDT by Addy Giron D.O.
--- NOTE | 2024-02-29 13:08 | PC.NURSE ---
Monique from [facility] transfer line called for pt update. Update given. Pt placed on waitlist.
[2024-02-29 14:10] LABS: Troponin I < 0.012 ng/mL (0.000-0.034)
--- NOTE | 2024-02-29 15:51 | PC.NURSE ---
Attempted to call report to [facility], unable to take report at this time
--- NOTE | 2024-02-29 17:14 | PC.NURSE ---
Pt informed of delay with EMS for transfer. Voices understanding
--- NOTE | 2024-02-29 17:17 | PC.NURSE ---
Heart healthy diet tray given
--- NOTE | 2024-02-29 17:53 | PC.NURSE ---
Report given to Yoselin [facility] Pt transfered to [facility]
== END 2024-02-29 17:55 | disposition short-term general hospital (02) ==
LOC: ANHED 10:28
PROVIDERS: Emergency Provider Physician Assistant; PCP Family Medicine
DX: I47.9 Paroxysmal tachycardia, unspecified (principal); M19.90 Unspecified osteoarthritis, unspecified site; G89.29 Other chronic pain; E11.9 Type 2 diabetes mellitus without complications; K21.9 Gastro-esophageal reflux disease without esophagitis; I10 Essential (primary) hypertension; E03.9 Hypothyroidism, unspecified; Z79.01 Long term (current) use of anticoagulants
CPT/HCPCS: 36415; 71046; 80053; 81001; 83735; 83880; 84443; 84484; 85025; 85610; 85730; 93005; 96361; 96374; 96375; 99285; J2405; J7030

== ENCOUNTER 2024-09-28 11:02 | Outpatient (CLI) | payer MEDICARE, BC, SELFPAY ==
--- OUTSIDE RECORDS SUMMARY | 2024-09-28 12:44 | XMS_ITS | Referral Summary ---
Author Organization [facility] Building C Address [address] [place] [address] Care Team Providers Care Study Abroad Advisor Name Role Phone Jung Cummings MD Primary Care Provider Encounters Date Type Department Care Team Description 09/23/2024 12:44 PM PUBLIC ADMINISTRATION PROFESSOR - 09/23/2024 11:59 PM PUBLIC ADMINISTRATION PROFESSOR Hospital Encounter [facility] - [place] [address] [facility] Floor [address] [place] [address] Leukocytosis, unspecified type Discharge Disposition: Discharge to home or self care 09/09/2024 Telephone [facility] [place] [address] [facility] Floor [address] [place] [address] Brandt Alvarez, 09/09/2024 Orders Only [facility] Hematology [address] [facility] Floor 6 [place] [address] Mary Paniagua RN Leukocytosis, unspecified type (Primary Dx) 08/08/[address] [facility] Orthopaedic Surgery [address] [facility] Medical Office Building [address] [place] [address] Tory Staton RN 08/04/2024 2:30 PM PUBLIC ADMINISTRATION PROFESSOR Lab [facility] - Lab Collection [address] [facility] Floor 6 [place] [address] Leukocytosis, unspecified type 08/04/2024 2:00 PM PUBLIC ADMINISTRATION PROFESSOR Lab [facility] Oncology Lab [address] [facility] Floor 6 [place] [address] 08/04/2024 1:00 PM PUBLIC ADMINISTRATION PROFESSOR Office Visit [facility] Hematology [address] [facility] [address] [place] [phone] Charlotte Miller MD Leukocytosis, unspecified type 07/27/[address] [facility] Hematology [address] [facility] Floor 6 [place] [phone] ShimonZonia 07/25/[address] [facility] Cardiology [facility] Advanced Medicine 8th [place] [address] [place] [address] Alexander Ni MD 06/29/[address] [facility] Cardiology [facility] 8th [place] [address] [place] [address] Andi Knapp MD 06/29/[address] [facility] Cardiology [facility] 8th [place] [address] [place] [address] Effie Kinney NP from Last 3 Months Allergies Active Allergy Reactions Criticality Noted Date Comments Amoxicillin-Pot Clavulanate Unknown 11/30/2008 augmentin Codeine Other (See comments),Nausea And Vomiting Low 09/06/2021 Makes pt feel sick Makes pt feel sick Doxycycline Tinnitus Low 08/03/2012 palpatations Penicillins Sulfa (Sulfonamide Antibiotics) Unknown 06/02/2018 Medications ELIQUIS 5 mg tablet TK 1 T PO BID 2 8 Active simvastatin (ZOCOR) 10 mg tablet TK 1 T PO QD IN THE EVENING 1 8 Active SITagliptin (JANUVIA) 100 mg tablet TAKE 1 TABLET DAILY. Active pantoprazole DR (PROTONIX) 40 mg EC tablet TAKE 1 TABLET DAILY Active cetirizine 10 mg capsule TAKE 1 TABLET DAILY. Active cyclobenzaprine (FLEXERIL) 10 mg tablet Take 0.5 tablets (5 mg total) by mouth 3 (three) times a day as needed 4 Active XIIDRA 5 % dropperette Administer 0.1 each (1 drop total) into both eyes 2 (two) times a day 8 Active losartan (COZAAR) 100 mg tablet TK 1 T PO QD 0 8 Active cholecalciferol (VITAMIN D-3) 3,000 unit tablet daily Ac tive traMADoL (ULTRAM) 50 mg tablet TK 1 T PO Q 6 H PRF PAIN 0 Active acetaminophen (TYLENOL) 500 mg tablet Take 2 tablets (1,000 mg total) by mouth 2 (two) times a day Active fluticasone propionate (FLONASE) 50 mcg/actuation nasal spray 1 Active ondansetron (ZOFRAN) 4 mg tablet TAKE 1 TABLET BY MOUTH EVERY 6 HOURS NEEDED FOR NAUSEA OR VOMITING 1 Active lidocaine (LIDODERM) 5 % lidocaine 5 % topical patch Active levothyroxine sodium (TIROSINT) 100 mcg capsule Take 1 capsule (100 mcg total) by mouth belt back operator before breakfast Active metoprolol tartrate (LOPRESSOR) 25 mg immediate release tablet Take 1 tablet (25 mg total) by mouth daily as needed (atrial fibrillation) 90 tablet 3 4 02/19/20 25 Active spironolactone (ALDACTONE) 25 mg tablet Take 1 tablet (25 mg total) by mouth daily 90 tablet 3 4 Active sotaloL (BETAPACE) 80 mg tabletIndications :Paroxysmal atrial fibrillation (CMS/HCC) (HCC) Take 1 tablet (80 mg total) by mouth 2 (two) times a day 180 tablet 1 4 Active Cholestyramine Light 4 gram powder 4 Active Active Problems Problem Noted Date Diagnosed Date High risk medication use 06/20/2024 Obesity 03/01/2024 Assessment & Plan (03/07/2024 12:00 PM CDT): BMI 34 -encourage weight loss Assessment & Plan (03/04/2024 3:08 PM CDT): BMI 34 -encourage weight loss Assessment & Plan (03/03/2024 10:05 AM CDT): BMI 34, encourage weight loss Assessment & Plan (03/02/2024 11:25 AM CDT): BMI 34, encourage weight loss Assessment & Plan (03/01/2024 8:20 AM CDT): BMI 34, encourage weight loss Leukocytosis 03/01/2024 Assessment & Plan (03/07/2024 12:00 PM CDT): -WBC slightly elevated but stable and asymptomatic -Heme consulted and following peripherally, f/u peripheral flow for clonal cell population, HIV and HCV RNA not detected Assessment & Plan (03/07/2024 8:44 AM CDT): The patient with elevated lymphocyte count which is stable. She does not need a daily CBC and differential at this time. Still awaiting the specialized testing by the service superintendent regarding flow cytometry. Assessment & Plan (03/06/2024 8:30 AM CDT): The patient with elevated lymphocyte count which is stable. She does not need a daily CBC and differential at this time. Still awaiting the specialized testing by the service superintendent regarding flow cytometry. Assessment & Plan (03/05/2024 9:07 AM CDT): The patient with elevated lymphocyte count which is stable. She does not need a daily CBC and differential at this time. Assessment & Plan (03/04/2024 3:08 PM CDT): WBC slightly elevated -stable, asymptomatic -CBC with diff and peripheral smear with AM labs -Heme consulted and following peripherally, f/u peripheral flow for clonal cell population and HIV / HBV / HCV serologies to rule out reactive processes Assessment & Plan (03/04/2024 7:32 AM CDT): WBC slightly elevated; asymptomatic -CBC with diff and peripheral smear with AM labs Evaluate lymphocytosis. ?CLL or other. Appreciate heme consult. Labs sent for further characterization of elevated lymphocyte count. Assessment & Plan (03/03/2024 10:05 AM CDT): WBC slightly elevated; asymptomatic -CBC with diff and peripheral smear pending Assessment & Plan (03/03/2024 9:40 AM CDT): WBC slightly elevated; asymptomatic -CBC with diff and peripheral smear with AM labs Evaluate lymphocytosis. ?CLL or other. The patient does have elevated lymphocyte count. This is not acute. Recommend Hematology consultation for lymphocytosis evaluation. The patient would like to see the service superintendent in hospital because of difficulty with travel. Please consult Hematology Assessment & Plan (03/02/2024 11:25 AM CDT): WBC slightly elevated; asymptomatic -CBC with diff and peripheral smear pending Assessment & Plan (03/02/2024 6:53 AM CDT): WBC slightly elevated; asymptomatic -CBC with diff and peripheral smear with AM labs Evaluate lymphocytosis. ?CLL or other. Assessment & Plan (03/01/2024 12:20 PM CDT): WBC slightly elevated; asymptomatic -CBC with diff and peripheral smear with AM labs Atrial fibrillation (CMS/HCC) 02/29/2024 Assessment & Plan (03/01/2024 12:30 PM CDT): Patient with history of paroxysmal afib on metoprolol and eliquis. Developed symptomatic narrow complex tachycardia yesterday prompting admission. -EP consult for Afib vs SVT -continue eliquis, missed 1 dose in past month, may need AARON if starting AAD -continue metoprolol, may need to decrease dose if starting AAD due to bradycardia at OSH -telemetry, SR Precordial pain 12/08/2018 Obstructive sleep apnea syndrome 01/21/2015 Diabetes mellitus 04/07/2014 Assessment & Plan (03/07/2024 11:44 AM CDT): HgbA1c 7.1 -continue home jardiance and januvia -monitor glucose on daily labs Assessment & Plan (03/07/2024 8:44 AM CDT): HgbA1c 7.1 -continue home jardiance and januvia -monitor glucose on daily labs Assessment & Plan (03/04/2024 3:00 PM CDT): HgbA1c 7.1 -continue home jardiance and januvia -monitor glucose on daily labs Assessment & Plan (03/03/2024 10:08 AM CDT): HgbA1c 7.1 -continue home jardiance and januvia -monitor glucose on daily labs Assessment & Plan (03/02/2024 11:27 AM CDT): HgbA1c 7.1 -continue home jardiance and januvia -monitor glucose on daily labs Assessment & Plan (03/01/2024 9:22 AM CDT): HgbA1c 7.1 -continue home jardiance and januvia -monitor glucose on daily labs Hypothyroidism 04/07/2014 Assessment & Plan (03/07/2024 11:56 AM CDT): TSH WNL -continue home synthroid Assessment & Plan (03/07/2024 8:44 AM CDT): TSH WNL -continue home synthroid Assessment & Plan (03/04/2024 3:03 PM CDT): TSH WNL -continue home synthroid Assessment & Plan (03/03/2024 10:07 AM CDT): TSH WNL, continue synthroid Assessment & Plan (03/03/2024 9:40 AM CDT): TSH WNL, continue synthroid Assessment & Plan (03/02/2024 11:26 AM CDT): TSH WNL, continue synthroid Assessment & Plan (03/02/2024 6:52 AM CDT): TSH WNL, continue synthroid Assessment & Plan (03/01/2024 12:29 PM CDT): TSH WNL, continue synthroid Sleep apnea syndrome 03/29/2014 Paroxysmal atrial fibrillation (CMS/HCC) 014 Assessment & Plan (03/07/2024 12:04 PM CDT): Patient with history of paroxysmal afib on metoprolol and eliquis. Developed symptomatic narrow complex tachycardia prompting admission. -no PAF/NCT >48 hours -SB/NSR on tele -EP consulted, appreciate recs -continue eliquis (missed 1 dose in past month) -metoprolol stopped due to bradycardia -decreased Sotolol dose to 80 mg BID given QT prolongation (EKG QTc 500-600) -obtain 12 lead ECG 2 hrs after each dose of Sotalol -strict telemetry -keep K > 4.0 and Mg > 2.0 -tentative plan was for catheter ablation 03/08, however, after discussion with Dr. Ni this morning, patient would like to hold off on procedure and continue with Sotalol at this time with EP follow up Assessment & Plan (03/07/2024 8:43 AM CDT): The patient with highly symptomatic paroxysmal atrial fibrillation and atrial tachycardia. She is maintained sinus rhythm over the last 48 hours on the current sotalol dose. She discussed whether to remain on sotalol and take a wait and see approach or whether to go forward with catheter ablation. After our discussion she wants to go forward with a catheter ablation. She is awaiting further guidance from the electrophysiology service about timing of that event tentatively scheduled for tomorrow. Continue current therapy await direction from shampoo assistant. Assessment & Plan (03/06/2024 8:30 AM CDT): The patient in sinus rhythm at present on sotalol 80 mg twice a day. Bradycardic at rest. Metoprolol held. The patient met with the shampoo assistant and has made a decision to go forward with catheter ablation during this admission. Plan to continue with the sotalol 80 mg twice a day. Continue with the anticoagulation. Follow on telemetry. Electrolytes stable. Assessment & Plan (03/05/2024 8:48 PM CDT): History of paroxysmal A. Fib on home metoprolol and Eliquis. Developed symptomatic narrow complex tachycardia prompting admission. -EP consulted, started on sotalol -Sotalol dose decreased to 80 mg BID due to QT prolongation (EKG QTc 500-600) -Planning to continue sotalol 80mg BID and stay inpatient for ablation next week (tentatively on Thursday) -Continue sotalol 80mg BID -Obtain 12 lead ECG 2 hrs after each dose of Sotalol -Continue Eliquis 5mg BID (missed 1 dose in past month) -Metoprolol stopped due to bradycardia -Strict telemetry -Keep K > 4.0 and Mg > 2.0, replete as indicated Assessment & Plan (03/05/2024 9:06 AM CDT): I spoke to the shampoo assistant last night. I met with the patient this morning. The shampoo assistant discuss with her about the possibility of a catheter ablation on Thursday for management of the atrial arrhythmias. The patient has discuss this with the family. She discussed this with me. At present she is leaning toward going forward with catheter ablation procedure on Thursday to manage the symptomatic paroxysmal atrial arrhythmias. She will meet with the shampoo assistant today and then make further determination about management strategies. She is currently in sinus rhythm on sotalol. Assessment & Plan (03/04/2024 3:30 PM CDT): Patient with history of paroxysmal afib on metoprolol and eliquis. Developed symptomatic narrow complex tachycardia prompting admission. -this AM with symptomatic PAF/NCT that resolved w/o acute intervention (SB/NSR when not having PAF/NCT) -EP consulted, appreciate recs -continue eliquis (missed 1 dose in past month) -metoprolol stopped due to bradycardia -decreased Sotolol dose to 80 mg BID given QT prolongation (EKG QTc 500-600) -obtain 12 lead ECG 2 hrs after each dose of Sotalol -strict telemetry -keep K > 4.0 and Mg > 2.0 Assessment & Plan (03/04/2024 7:31 AM CDT): Pt with runs of paroxysmal afib with RVR this am and short salvos of NCT. I d/w Dr. Amador. EP will see her for evaluation and adjustment of meds. Continue apixaban. Qtc ok on current therapy. Discussion will be whether to adjust med or change plans to alternative antiarrhytyhmic agent or consider catheter ablation. Assessment & Plan (03/03/2024 10:04 AM CDT): Patient with history of paroxysmal afib on metoprolol and eliquis. Developed symptomatic narrow complex tachycardia yesterday prompting admission. -EP consult for Afib vs SVT -continue eliquis, missed 1 dose in past month, may need AARON if starting AAD -metoprolol decreased to 25mg (from 100)-HELD this am; increased Sotolol at 120mg, EKG QTc 490's -telemetry, SR Assessment & Plan (03/03/2024 9:40 AM CDT): Arrhythmia felt to represent Afib with RVR or atrial tachycardia. Sotalol 80 mg bid begun. Sotalol has now been up titrated to 120 mg twice a day with 1st dose last night. She received a dose this morning. He is check EKG for QT corrected. If QT corrected increasing further to 500 or longer then we will have to decrease the dose of sotalol back to 80 mg b.i.d.. Bradycardia at baseline. Metoprolol has been held. Agree with holding metoprolol Recommend inpatient evaluation today and if QT interval is satisfactory likely discharge home tomorrow after morning dose of sotalol and EKG review. Assessment & Plan (03/02/2024 11:32 AM CDT): Patient with history of paroxysmal afib on metoprolol and eliquis. Developed symptomatic narrow complex tachycardia yesterday prompting admission. -EP consult for Afib vs SVT -continue eliquis, missed 1 dose in past month, may need AARON if starting AAD -metoprolol decrease this am to 25mg (from 100) ; Sotolol at 80mg, if QTc ok, increase to 120mg this evening -telemetry, SR, OTc slightly increased from yesterday to 490 Assessment & Plan (03/02/2024 6:51 AM CDT): Arrhythmia felt to represent Afib with RVR or atrial tachycardia. Sotalol 80 mg bid begun. Qtc ok. Plan to decrease metoprolol to 25 mg a day today. If Qtc ok after this am dose, plan to increase sotalol to 120 mg bid. Follow telemetry and Qtc. Dizziness 02/01/2014 Hypertension 11/21/2011 Assessment & Plan (03/07/2024 11:56 AM CDT): -currently well controlled -continue losartan and Aldactone -metoprolol stopped because of bradycardia Assessment & Plan (03/07/2024 8:44 AM CDT): -currently well controlled -continue losartan and Aldactone -metoprolol stopped because of bradycardia Assessment & Plan (03/06/2024 8:30 AM CDT): -currently well controlled -continue losartan and Aldactone -metoprolol stopped because of bradycardia Assessment & Plan (03/05/2024 9:07 AM CDT): -currently well controlled -continue losartan and Aldactone -metoprolol stopped because of bradycardia Assessment & Plan (03/04/2024 3:02 PM CDT): -currently well controlled -continue losartan and Aldactone -metoprolol stopped because of bradycardia Assessment & Plan (03/04/2024 7:32 AM CDT): Controlled -continue losartan, and Aldactone. Metoprolol stopped because of bradycardia. Assessment & Plan (03/03/2024 10:08 AM CDT): Controlled -continue losartan, metoprolol, aldactone Assessment & Plan (03/03/2024 9:41 AM CDT): Controlled -continue losartan, and Aldactone. Metoprolol stopped because of bradycardia. Assessment & Plan (03/02/2024 11:26 AM CDT): Controlled -continue losartan, metoprolol, aldactone Assessment & Plan (03/01/2024 9:25 AM CDT): Controlled -continue losartan, metoprolol, aldactone Palpitations 11/21/2011 Immunizations Name Administration Dates Next Due Influenza, Quadrivalent, Hig h Dose, Preservative Free, Intrr 05/04/2020 Influenza, Trivalent, High D ose, Split, Preservative Free, Intramuscular 06/15/2019 Influenza, Unspecified 06/06/2018 ZOSTER Recombinant 04/15/2018, 8,12/10/2017,12/09 Social History Tobacco Use Types Packs/Day Years Used Date Smoking Tobacco: Former Passive Smoke Exposure: Past Smokeless Tobacco: Never Tobacco Cessation:Counseling Given: Not Answered Personal Safety Answer Date Recorded Have you ever been in or are you currently in a harmful physical or emotional relationship or is someone making you feel afraid or unsafe? Denies 02/29/2024 Comments Unknown Sex and Gender Information Value Date Recorded Sex Assigned at Not on file Legal Sex Female 1:21 AM PUBLIC ADMINISTRATION PROFESSOR Gender Identity Not on file Sexual Orientation Not on file Last Filed Vital Signs Vital Sign Reading Time Taken Comments Blood Pressure 147/91 08/04/2024 1:24 PM PUBLIC ADMINISTRATION PROFESSOR Pulse 59 08/04/2024 1:24 PM PUBLIC ADMINISTRATION PROFESSOR Temperature 36.1 ??C (96.9 ??F) 08/04/2024 1:24 PM CS T Respiratory Rate 18 08/04/2024 1:24 PM PUBLIC ADMINISTRATION PROFESSOR Oxygen Saturation 99% 08/04/2024 1:24 PM PUBLIC ADMINISTRATION PROFESSOR Inhaled Oxygen Concentration - - Weight 84.3 kg (185 lb 12.8 oz) 08/04/2024 1:24 PM PUBLIC ADMINISTRATION PROFESSOR Height 162.6 cm (5' 4 ) 06/20/2024 2:56 PM CDT Body Mass Index 31.89 06/20/2024 2:56 PM CDT Plan of Treatment Not on file Procedures Procedure Name Priority Date/Time Associated Diagnosis Comments CT ABDOMEN PELVIS WO CONTRAST Schedule Routine, Read Routine (OP Routine) 09/23/2024 12:53 PM PUBLIC ADMINISTRATION PROFESSOR Leukocytosis, unspecified type EGFR Routine 08/04/2024 2:50 PM PUBLIC ADMINISTRATION PROFESSOR Leukocytosis, unspecified type LACTATE DEHYDROGENASE Routine 08/04/2024 2:50 PM PUBLIC ADMINISTRATION PROFESSOR Leukocytosis, unspecified type COMPREHENSIVE METABOLIC PANEL Routine 08/04/2024 2:50 PM PUBLIC ADMINISTRATION PROFESSOR Leukocytosis, unspecified type DIFFERENTIAL AUTO Routine 08/04/2024 2:3 8 PM PUBLIC ADMINISTRATION PROFESSOR Leukocytosis, unspecified type CBC WITH AUTO DIFFERENTIAL Routine 08/04/2024 2:38 PM PUBLIC ADMINISTRATION PROFESSOR Leukocytosis, unspecified type HEPATITIS C RNA, QUANTITATIVE, PCR Routine 03/03/2024 6:24 PM CDT HEMOGLOBIN A1C Routine 02/29/2024 8:06 PM CDT LIPID PANEL Routine 02/29/2024 8:06 PM CDT from Last 3 Months or Most Recently Relevant to Health Maintenance Results * CT abdomen pelvis without contrast (09/23/2024 12:53 PM PUBLIC ADMINISTRATION PROFESSOR) Anatomical Region Laterality Modality Body N/A Computed Tomogra phy 09/23/2024 1:05 PM PUBLIC ADMINISTRATION PROFESSOR Impressions 09/23/2024 1:05 PM PUBLIC ADMINISTRATION PROFESSOR No groin or abdominopelvic lymphadenopathy. Electronically signed by: Manuel Reese M.D. Narrative 09/23/2024 1:05 PM PUBLIC ADMINISTRATION PROFESSOR EXAMINATION: ??Computed tomography of the abdomen and pelvis without intravenous contrast HISTORY: Groin lymphadenopathy; monoclonal B-cell leukocytosis TECHNIQUE: ??Transaxial computed tomographic images of the abdomen and pelvis were obtained without intravenous contrast according to the standard protocol. COMPARISON: None FINDINGS: ?? Scattered calcified granulomas within the imaged lung bases. ??Normal heart size with mitral annular calcifications and no pericardial effusion. The liver is normal unenhanced appearance. ??The gallbladder is absent. ??Common bile duct is normal caliber. ??The spleen is normal size. ??The pancreas and adrenal glands are normal. ??The kidneys are normal without hydronephrosis or stones. ??The stomach and duodenum are normal. There is no inguinal lymphadenopathy. ??The urinary bladder is normal. The uterus is normal without adnexal masses. ??No colonic or small bowel obstruction or inflammation. ??Mild colonic diverticulosis. Normal appendix. ??No free fluid, free air, or lymphadenopathy. No retroperitoneal, mesenteric, or pelvic lymphadenopathy. Thoracolumbar spine degenerative changes without suspicious bone lesions. Procedure Note Manuel Reese MD - 09/23/2024 EXAMINATION: Computed tomography of the abdomen and pelvis without intravenous contrast HISTORY: Groin lymphadenopathy; monoclonal B-cell leukocytosis TECHNIQUE: Transaxial computed tomographic images of the abdomen and pelvis were obtained without intravenous contrast according to the standard protocol. COMPARISON: None FINDINGS: Scattered calcified granulomas within the imaged lung bases. Normal heart size with mitral annular calcifications and no pericardial effusion. The liver is normal unenhanced appearance. The gallbladder is absent. Common bile duct is normal caliber. The spleen is normal size. The pancreas and adrenal glands are normal. The kidneys are normal without hydronephrosis or stones. The stomach and duodenum are normal. There is no inguinal lymphadenopathy. The urinary bladder is normal. The uterus is normal without adnexal masses. No colonic or small bowel obstruction or inflammation. Mild colonic diverticulosis. Normal appendix. No free fluid, free air, or lymphadenopathy. No retroperitoneal, mesenteric, or pelvic lymphadenopathy. Thoracolumbar spine degenerative changes without suspicious bone lesions. IMPRESSION: No groin or abdominopelvic lymphadenopathy. Electronically signed by: Manuel Reese M.D. Charlotte Miller MD IM CT PROCEDURES Final Resu lt * eGFR (08/04/2024 2:50 PM PUBLIC ADMINISTRATION PROFESSOR) eGFR 68 >=60 mL/min/1. 73 m2 Comment: Interpretive Data Reference Interval Normal ?>/= 90 mL/min/1.73m2 Mildly decreased* ? 60 - 89 mL/min/1.73m2 Mildly to moderately decreased ?45 - 59 mL/min/1.73m2 Moderately to severely decreased ??30 - 44 mL/min/1.73m2 Severely decreased ?15 - 29 mL/min/1.73m2 Kidney Failure ?< 15 ??mL/min/1.73m2 *Relative to young adult level Estimated glomerular filtration rate is determined by the 2020 CKD-EPI equation recommended by the National Kid[employer] (A Unifying Approach to GFR Estimation: Recommendations of the NKF-ASK Task Force on Reassessing the Inclusion of Race in Diagnosing Kidney Disease, JASN 2020). The CKD-EPI equation should not be used for patients with unstable renal function and has not been validated in children and those over 70. Current interpretive data was last reviewed 2021. Blood 08/04/2024 2:50 PM PUBLIC ADMINISTRATION PROFESSOR 08/04/2024 2:55 PM PUBLIC ADMINISTRATION PROFESSOR us Charlotte Miller MD LAB BLOOD ORDERABLES Final R esult Performing Organization Address [facility] Co de Phone Number [facility] Department [place] [address] * Lactate dehydrogenase (LD) (08/04/2024 2:50 PM PUBLIC ADMINISTRATION PROFESSOR) Pathologist [facility] Lactate dehydrogenase (LDH) 178 100 - 250 Units/L Blood 08/04/2024 2:50 PM PUBLIC ADMINISTRATION PROFESSOR 08/04/2024 2:55 PM PUBLIC ADMINISTRATION PROFESSOR us Charlotte Miller MD LAB BLOOD ORDERABLES Final R esult Performing Organization Address [facility] de Phone Number [facility] Department [place] [address] * Comprehensive metabolic panel (08/04/2024 2:50 PM PUBLIC ADMINISTRATION PROFESSOR) Pathologist [facility] Sodium 143 135 - 145 mmol/L Potassium, pl 4.4 3.3 - 4.9 mmol/L [facility] Chloride 108 97 - 110 mmol/L [facility] CO2 29 22 - 32 mmol/L [facility] Anion gap 6 2 - 15 mmol/L [facility] BUN 17 6 - 25 mg/dL [facility] Creatinine 0.87 0.60 - 1.10 mg/dL [facility] Glucose 89 70 - 199 mg/dL [facility] Comment: Interpretive Data Fasting glucose >/= 126 mg/dl is diagnostic for diabetes. ?? Fasting is defined as no caloric intake for at least 8 hours. Fasting glucose between 100 mg/dl to 125 mg/dl is diagnostic of prediabetes. In a patient with classic symptoms of hyperglycemia or hyperglycemic crisis, a random glucose >/= 200 mg/dl is diagnostic for diabetes. In the absence of unequivocal hyperglycemia, results should be confirmed by repeat testing. The classification and Diagnosis of Diabetes Diabetes Care 2021; 46: S19-S40. Current interpretive data was last revised 2022. Calcium 9.3 8.5 - 10.3 mg/dL [facility] Bilirubin, total 0.5 0.1 - 1.2 mg/dL [facility] Protein, pl 7.0 6.5 - 8.5 g/dL [facility] Albumin 4.4 3.5 - 5.0 g/dL [facility] Alk phos 52 40 - 130 Units/L [facility] ALT 14 7 - 45 Units/L [facility] AST 19 10 - 45 Units/L [facility] Blood 08/04/2024 2:50 PM PUBLIC ADMINISTRATION PROFESSOR 08/04/2024 2:55 PM PUBLIC ADMINISTRATION PROFESSOR us Charlotte Miller MD LAB BLOOD ORDERABLES Final R esult [facility] Department [place] [address] * (ABNORMAL) Differential, auto (08/04/2024 2:38 PM PUBLIC ADMINISTRATION PROFESSOR) Pathologist [facility] Neutrophil abs 5.0 1.5 - 6.5 K/cumm Comment:Testing performed by : [facility], [address] [place] [phone] Lymphocyte abs 4.4(H) 0.8 - 3.3 K/cumm [facility] Comment:Testing performed by : [facility], [address] [place] [phone] Monocyte abs 0.9(H) 0.2 - 0.8 K/cumm [facility] Comment:Testing performed by : [facility], [address] [place] [phone] Eosinophil abs 0.0 0.0 - 0.5 K/cumm [facility] Comment:Testing performed by : [facility], [address] [place] [phone] Basophil abs 0.2(H) 0.0 - 0.1 K/cumm [facility] Comment:Testing performed by : [facility], [address] [place] [phone] Neutrophil pct 47.5 % [facility] Comment: Interpretive Data Percent cell count reference ranges are not reported, since discordance with absolute values may lead to misinterpretation of CBC data. Current Interpretive Data was last revised on 2017. Testing performed by: [facility], [address] [place] [phone] Lymphocyte pct 41.8 % [facility] Comment: Interpretive Data Percent cell count reference ranges are not reported, since discordance with absolute values may lead to misinterpretation of CBC data. Current Interpretive Data was last revised on 2017. Testing performed by: [facility], [address] [place] [phone] Monocyte pct 8.7 % [facility] Comment: Interpretive Data Percent cell count reference ranges are not reported, since discordance with absolute values may lead to misinterpretation of CBC data. Current Interpretive Data was last revised on 2017. Testing performed by: [facility], [address] [place] [phone] Eosinophil pct 0.5 % [facility] Comment: Interpretive Data Percent cell count reference ranges are not reported, since discordance with absolute values may lead to misinterpretation of CBC data. Current Interpretive Data was last revised on 2017. Testing performed by: [facility], [address] [place] [address] Basophil pct 1.5 % [facility] Comment: Interpretive Data Percent cell count reference ranges are not reported, since discordance with absolute values may lead to misinterpretation of CBC data. Current Interpretive Data was last revised on 2017. Testing performed by: [facility], [address] [place] [address] Blood 08/04/2024 2:38 PM PUBLIC ADMINISTRATION PROFESSOR 08/04/2024 2:54 PM PUBLIC ADMINISTRATION PROFESSOR Charlotte Miller MD LAB BLOOD ORDERABLES Final R esult [facility] Department [place] [address] * (ABNORMAL) CBC with auto differential (08/04/2024 2:38 PM PUBLIC ADMINISTRATION PROFESSOR) WBC 10.5(H) 3.8 - 9.9 K/cumm Comment:Testing performed by : [facility], [address] [place] [address] Hgb 14.4 11.9 - 15.5 g/dL [facility] Comment:Testing performed by : [facility], [address] [place] [address] Hct 43.7 35.6 - 45.5 % [facility] Comment:Testing performed by : [facility], [address] [place] [address] Plt 245 150 - 400 K/cumm [facility] Comment:Testing performed by : [facility], [address] [place] [address] MPV 8.5 6.8 - 10.4 fL [facility] Comment:Testing performed by : [facility], [address] [place] [address] RBC 4.77 3.90 - 5.20 M/cumm [facility] Comment:Testing performed by : [facility], [address] [place] [address] MCV 91.6 81.3 - 96.4 fL [facility] Comment:Testing performed by : [facility], [address] [place] [address] MCH 30.3 27.1 - 33.3 pg [facility] Comment:Testing performed by : [facility], [address] [place] [address] MCHC 33.0 32.3 - 35.7 g/dL [facility] Comment:Testing performed by : [facility], [address] [place] [address] RDW CV 13.7 11.1 - 14.9 % [facility] Comment:Testing performed by : [facility], [address] [place] [address] NRBC abs 0.00 0.00 - 0.01 K/cumm [facility] Comment:Testing performed by : [facility], [address] [place] [address] Blood 08/04/2024 2:38 PM PUBLIC ADMINISTRATION PROFESSOR 08/04/2024 2:54 PM PUBLIC ADMINISTRATION PROFESSOR Charlotte Miller MD LAB BLOOD ORDERABLES Final R esult [facility] Department [place] [address] * Hepatitis C (HCV) RNA PCR, quantitative Blood (03/03/2024 6:24 PM CDT) [facility] HCV RNA result Not Detected [facility] Comment: The quantifiable range of this assay is 15 IU/mL to 100,000,000 IU/mL (1.18 log IU/mL to 8.00 log IU/mL). Testing was performed by the [id number] HCV Test ([employer] Testing performed at [facility] Current Interpretive Data was last revised on 2021 Blood 03/03/2024 6:24 PM CDT 03/03/2024 7:05 PM CDT Ilsa Kumari NP LAB MICROBIOLOGY - GENERAL ORDERABLES Final Result Performing Organization Address [facility] de Phone Number [facility] Department [place] [address] [facility] * (ABNORMAL) Hemoglobin A1c (02/29/2024 8:06 PM CDT) Hgb A1C 7.1(H) 4.0 - 5.6 % Estimated Average Glucose 157 mg/dL [facility] Comment: The ADA recommends reporting an estimated Average Glucose (eAG) with all Hemoglobin A1c results using the equation derived from a study of 507 normal and diabetic adults. ??Minority populations were underrepresented and children were not included. ?? (Diabetes Care 2020; 43(S1): S66-S76). ??The eAG is not equivalent to a fasting glucose. Blood 02/29/2024 8:06 PM CDT 02/29/2024 8:44 PM CDT us Andi Knapp MD LAB BLOOD ORDERABLES F inal Result Performing Organization Address [facility] de Phone Number [facility] Department [place] [address] * (ABNORMAL) Lipid panel (02/29/2024 8:06 PM CDT) Cholesterol 153 30 - 199 mg/dL Comment: Interpretive Data Ages < or = 19 years ??Acceptable: ? <170 mg/dL ??Borderline high: ??170-199 mg/dL ??High: ? >or= 200 mg/dL Ages > or = 20 years ??Desirable: ?<200 mg/dL ??Borderline high: ??200-239 mg/dL ??High: ? >or= 240 mg/dL Literature References: 1. Expert Panel on Integrated Guidelines for Cardiovascular Health and Risk Reduction in Children and Adolescents. Pediatrics 2011;128:S213 2. NCEP Expert Panel. Circulation 2004;110:227 Current Interpretive Data was last revised on 2018. Triglycerides 210(H) <=149 mg/dL [facility] Comment: Interpretive Data Ages < or = 9 years ??Acceptable: ? <75 mg/dL ??Borderline high: ??75-99 mg/dL ??High: ? >or= 100 mg/dL Ages 10 to 20 years ??Acceptable: ? <90 mg/dL ??Borderline high: ??90-129 mg/dL ??High: ? >or= 130 mg/dL Ages > or = 20 years ??Desirable: ?<150 mg/dL ??Borderline high: ??150-199 mg/dL ??High: ? 200-499 mg/dL ?Very high: ?? >or= 499 mg/dL Literature References: 1. Expert Panel on Integrated Guidelines for Cardiovascular Health and Risk Reduction in Children and Adolescents. Pediatrics 2011;128:S213 2. NCEP Expert Panel. Circulation 2004;110:227 Current Interpretive Data was last revised on 2018. HDL 42 >=40 mg/dL [facility] Comment: Interpretive Data Ages < or = 19 years ??Acceptable: ? >45 mg/dL ??Borderline low: ?? 40-45 mg/dL ??Low: ? <40 mg/dL Ages > or = 20 years ??Desirable: ?>or= 60 mg/dL ??Low: ? <40 mg/dL Literature References: 1. Expert Panel on Integrated Guidelines for Cardiovascular Health and Risk Reduction in Children and Adolescents. Pediatrics 2011;128:S213 2. NCEP Expert Panel. Circulation 2004;110:227 Current Interpretive Data was last revised on 2018. LDL, calculated 69 <=129 mg/dL [facility] Comment: Interpretive Data Ages < or = 19 years ??Acceptable: ? <110 mg/dL ??Borderline high: ??110-129 mg/dL ??High: ?>or= 130 mg/dL Ages > or = 20 years ??Optimal: ? <100 mg/dL ??Near optimal: ?100-129 mg/dL ??Borderline high: ?? 130-159 mg/dL ??High: ?>160 mg/dL Literature References: 1. Expert Panel on Integrated Guidelines for Cardiovascular Health and Risk Reduction in Children and Adolescents. Pediatrics 2011;128:S213 2. NCEP Expert Panel. Circulation 2004;110:227 Current Interpretive Data was last revised on 2018. Non-HDL Cholesterol 111 mg/dL [facility] Comment: Interpretive Data Ages < or = 19 years ??Acceptable: ?<120 mg/dL ??Borderline high: ??120-144 mg/dL ??High: ?>145 mg/dL Ages > or = 20 years ??When triglycerides are >200 mg/dL, Non-HDL cholesterol is a secondary target of ? therapy with treatment goals that are 30 mg/dL greater than the LDL cholesterol target. ? Literature References: 1. Expert Panel on Integrated Guidelines for Cardiovascular Health and Risk Reduction in Children and Adolescents. Pediatrics 2011;128:S213 2. NCEP Expert Panel. Circulation 2004;110:227 Current Interpretive Data was last revised on 2018. Chol/HDL ratio 4 [facility] Blood 02/29/2024 8:06 PM CDT 02/29/2024 8:43 PM CDT us Andi Knapp MD LAB BLOOD ORDERABLES F inal Result [facility] Department of Laboratories [place], [place] [id number] from Last 3 Months or Most Recently Relevant to Health Maintenance Insurance MEDICARE [facility] MEDICARE [facility] [id number] MEDICARE [facility] Advance Directives For more information, please contact: [phone] Documents on File Type Date Recorded Patient Trimming Caser Expl anation ADVANCE DIRECTIVE 03/13/2024 6:48 PM POWER OF CLINICAL RESEARCHER-MEDICAL * Full Code (Latest Code Status on File) Date Activated Date Inactivated Comments 02/29/2024 6:38 PM 03/07/2024 6:25 PM Care Teams Study Abroad Advisor Relationship Specialty Start Date End Date Jung Cummings MD [address] [facility] [address] [place], [place] [id number] PCP - General Family Practice 03/07/24
--- OUTSIDE RECORDS SUMMARY | 2024-09-28 12:44 | XMS_ITS | Encounter Summary ---
Author Organization [facility] Address [address] [place] [address] Phone Care Team Providers Care Stress Test Technician Name Role Phone Saturnino Cummings MD Primary Care Provide r Jung Cummings MD Primary Care Provider Encounter Details Date Type Department Care Team (Latest Contact Info) Description 08/31/2023 Orders Only [facility] CARDIOLOGY Scanning, Provider Social History Tobacco Use Types Packs/Day Years Used Date Smoking Tobacco: Former Smokeless Tobacco: Never Personal Safety Answer Date Recorded Getting School Help Needed Not on file 09/01 Comments Unknown Sex and Gender Information Value Date Recorded Sex Assigned at Not on file Legal 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 Gender Identity Not on file Sexual Orientation Not on file documented as of this encounter Plan of Treatment Not on file documented as of this encounter Procedures Procedure Name Priority Date/Time Associated Diagnosis Comments CARDIOLOGY DOCUMENT SCAN 08/31/2023 documented in this encounter Results * CARDIOLOGY DOCUMENT SCAN (08/31/2023) Anatomical Region Laterality Modality Other us Provider Scanning CV CARDIAC SERVICES PROCEDURES Final Result documented in this encounter Visit Diagnoses Not on filedocumented in this encounter Care Teams Stress Test Technician Relationship Specialty Start Date End Date Saturnino Cummings MD [address] [facility] [place] [address] PCP - General 04/22/17 03/06/24 Jung Cummings MD [address] [facility] [place] [address] [place] [address] PCP - General Family Practice 03/07/24 documented as of this encounter
--- OUTSIDE RECORDS SUMMARY | 2024-09-28 12:44 | XMS_ITS | Clinical Summary ---
Author Organization [facility] C Address [address] [facility] [place] [address] Care Team Providers Care Crime Scene Examiner Name Role Phone Jung Cummings MD Primary Care Provider Allergies Active Allergy Reactions Criticality Noted Date [...] 1 capsule (100 mcg total) by mouth tufting supervisor before breakfast Active metoprolol tartrate (LOPRESSOR) 25 [...] Still awaiting the specialized testing by the child specialist regarding flow cytometry. Assessment & Plan (03/06/2024 8:30 AM CDT): The patient with elevated lymphocyte count which is stable. She does not need a daily CBC and differential at this time. Still awaiting the specialized testing by the child specialist regarding flow cytometry. Assessment & Plan (03/05/2024 [...] The patient would like to see the child specialist in hospital because of difficulty with travel. [...] tomorrow. Continue current therapy await direction from roller checker. Assessment & Plan (03/06/2024 8:30 AM CDT): The patient in sinus rhythm at present on sotalol 80 mg twice a day. Bradycardic at rest. Metoprolol held. The patient met with the roller checker and has made a decision to go [...] 9:06 AM CDT): I spoke to the roller checker last night. I met with the patient this morning. The roller checker discuss with her about the possibility of a catheter ablation on Thursday for management of the atrial arrhythmias. The patient has discuss this with the family. She discussed this with me. At present she is leaning toward going forward with catheter ablation procedure on Thursday to manage the symptomatic paroxysmal atrial arrhythmias. She will meet with the roller checker today and then make further determination about [...] Controlled -continue losartan, metoprolol, aldactone Palpitations 11/21/2011 Encounters Date Type Department Care Team Description 09/23/2024 12:44 PM HAIR OR BEAUTY SALON MANAGER - 09/23/2024 11:59 PM HAIR OR BEAUTY SALON MANAGER Hospital Encounter [facility] [place] [facility] Floor 8 [place] [address] Leukocytosis, unspecified type Discharge Disposition: Discharge to home or self care 09/09/2024 Telephone [facility] [place] [address] [place] [address] Floor 8 [place] [address] Brandt Alvarez, 09/09/2024 Orders Only [facility] Hematology [address] [place] [address] Floor 6 [place] [phone] Mary Paniagua RN Leukocytosis, unspecified type (Primary Dx) 08/08/2024 Telephone [facility] Orthopaedic Surgery [address] [place] [address] Medical Office Building 4 [address] [place] [address] Tory Staton, JAQUAN 08/04/2024 2:30 PM HAIR OR BEAUTY SALON MANAGER Lab [facility] - Lab Collection [facility] 6 [place] [address] Leukocytosis, unspecified type 08/04/2024 2:00 PM HAIR OR BEAUTY SALON MANAGER Lab [facility] Oncology Lab [address] [place] [address] 6 [place] [address] 08/04/2024 1:00 PM HAIR OR BEAUTY SALON MANAGER Office Visit [facility] Hematology [address] [place] [address] 6 [place] [address] Charlotte Miller MD Leukocytosis, unspecified type 07/27/2024 Telephone [facility] Hematology [address] [place] [address] 6 [place] [phone] Zonia Robins 07/25/2024 Telephone [facility] Cardiology [address] [place] [address] Medicine 8th [place] [address] [place] [address] Alexander Ni MD 06/29/2024 Telephone [facility] Cardiology [address] [facility] Advanced Medicine 8th [place] [address] [place] [phone] Andi Knapp MD 06/29/2024 Telephone [facility] Cardiology [address] [facility] Medicine 8th [place] [address] [place] [phone] Effie Kinney NP from Last 3 Months Immunizations Name Administration Dates Next Due Influenza, Quadrivalent, Hig h Dose, Preservative Free, Intrr 05/04/2020 Influenza, Trivalent, High D ose, Split, Preservative Free, Intramuscular 06/15/2019 Influenza, Unspecified 06/06/2018 ZOSTER Recombinant 04/15/2018, 8,12/10/2017,12/09 Surgical History Surgery Date Site/Laterality Comments [place] TONSILLECTOMY & ADENOIDEC PADMINI <AGE 11 Tonsillectomy With Adenoidectomy - (Added by TW Conv) [place] CHOLECYSTECTOMY Cholecystectomy - (Added by TW Conv) Family History Medical History Relation Name Comments Hypertension Brother Family history of hypertension - (Added by TW Conv) Relation Name Status Comments Brother Social History Tobacco Use Types Packs/Day Years [...] on file Legal Sex Female 1:21 AM HAIR OR BEAUTY SALON MANAGER Gender Identity Not on file Sexual Orientation Not on file Obstetrics History Last Filed Vital Signs Vital Sign Reading Time Taken Comments Blood Pressure 147/91 08/04/2024 1:24 PM HAIR OR BEAUTY SALON MANAGER Pulse 59 08/04/2024 1:24 PM HAIR OR BEAUTY SALON MANAGER Temperature 36.1 ??C (96.9 ??F) 08/04/2024 1:24 PM CS T Respiratory Rate 18 08/04/2024 1:24 PM HAIR OR BEAUTY SALON MANAGER Oxygen Saturation 99% 08/04/2024 1: 24 PM HAIR OR BEAUTY SALON MANAGER Inhaled Oxygen Concentration - - Weight 84.3 kg (185 lb 12.8 oz) 08/04/2024 1:24 PM HAIR OR BEAUTY SALON MANAGER Height 162.6 cm (5' 4 ) 06/20/2024 2:56 PM CDT Body Mass Index 31.89 06/20/2024 2:56 PM CDT Plan of Treatment Health Maintenance Due Date Last Done Comments Albumin Creatinine Ratio, Urine 1944 Depression Screening 1945 Dilated Eye Exam 1944 Foot Exam 1944 Pneumococcal vaccine 65+ (1 of 2 - PCV) 1950 DTaP/Tdap/Td Vaccine (1 - Tdap) 12/14/1955 Hepatitis B Screening 1962 Well Visit 65+ 2009 Osteoporosis Screening-Bone Density Scan 07/07/2013 07/07/2011 Influenza Vaccine (#1) 2024 , 06/15/2019, 06/06/2018 Hemoglobin A1C 08/31/2024 02/29/2024 Lipid Panel 02/28/2025 02/29/2024, 02/13/2014 Fall Risk Assessment 03/07/2025 03/07/2024 eGFR 08/04/2025 08/04/2024, 05/25, 03/07/2024, Additional history exists Zoster Vaccine Completed 04/15/2018, 03/25, 12/10/2017, Additional history exists Hepatitis C Screening Completed 03/03/2024 Procedures Procedure Name Priority Date/Time Associated Diagnosis Comments CT ABDOMEN PELVIS WO CONTRAST Schedule Routine, Read Routine (OP Routine) 09/23/2024 12:53 PM HAIR OR BEAUTY SALON MANAGER Leukocytosis, unspecified type EGFR Routine 08/04/2024 2:50 PM HAIR OR BEAUTY SALON MANAGER Leukocytosis, unspecified type LACTATE DEHYDROGENASE Routine 08/04/2024 2:50 PM HAIR OR BEAUTY SALON MANAGER Leukocytosis, unspecified type COMPREHENSIVE METABOLIC PANEL Routine 08/04/2024 2:50 PM HAIR OR BEAUTY SALON MANAGER Leukocytosis, unspecified type DIFFERENTIAL AUTO Routine 08/04/2024 2:3 8 PM HAIR OR BEAUTY SALON MANAGER Leukocytosis, unspecified type CBC WITH AUTO DIFFERENTIAL Routine 08/04/2024 2:38 PM HAIR OR BEAUTY SALON MANAGER Leukocytosis, unspecified type HEPATITIS C RNA, QUANTITATIVE, PCR Routine 03/03/2024 6:24 PM CDT HEMOGLOBIN A1C Routine 02/29/2024 8:06 PM CDT LIPID PANEL Routine 02/29/2024 8:06 PM CDT from Last 3 Months or Most Recently Relevant to Health Maintenance Results * CT abdomen pelvis without contrast (09/23/2024 12:53 PM HAIR OR BEAUTY SALON MANAGER) Anatomical Region Laterality Modality Body N/A Computed Tomogra phy 09/23/2024 1:05 PM HAIR OR BEAUTY SALON MANAGER Impressions 09/23/2024 1:05 PM HAIR OR BEAUTY SALON MANAGER No groin or abdominopelvic lymphadenopathy. Electronically signed by: Manuel Reese M.D. Narrative 09/23/2024 1:05 PM HAIR OR BEAUTY SALON MANAGER EXAMINATION: ??Computed tomography of the abdomen and [...] by: Manuel Reese M.D. Charlotte Miller MD IMG CT PROCEDURES Final Resu lt * eGFR (08/04/2024 2:50 PM HAIR OR BEAUTY SALON MANAGER) eGFR 68 >=60 mL/min/1. 73 m2 Comment: [...] last reviewed 2021. Blood 08/04/2024 2:50 PM HAIR OR BEAUTY SALON MANAGER 08/04/2024 2:55 PM HAIR OR BEAUTY SALON MANAGER us Charlotte Miller MD LAB BLOOD ORDERABLES Final R esult Performing Organization Address City/[facility] Co de Phone Number [facility] [place] [address] * Lactate dehydrogenase (LD) (08/04/2024 2:50 PM HAIR OR BEAUTY SALON MANAGER) Lactate dehydrogenase (LDH) 178 100 - 250 Units/L Blood 08/04/2024 2:50 PM HAIR OR BEAUTY SALON MANAGER 08/04/2024 2:55 PM HAIR OR BEAUTY SALON MANAGER us Charlotte Miller MD LAB BLOOD ORDERABLES Final R esult Performing Organization Address [facility] Co de Phone Number [facility] [place] [address] * Comprehensive metabolic panel (08/04/2024 2:50 PM HAIR OR BEAUTY SALON MANAGER) Sodium 143 135 - 145 mmol/L Potassium, pl 4.4 3.3 - 4.9 mmol/L [facility] Chloride 108 97 - 110 mmol/L [facility] CO2 29 22 - 32 mmol/L [facility] Anion gap 6 2 - 15 mmol/L [facility] BUN 17 6 - 25 mg/dL [facility] Creatinine 0.87 0.60 - 1.10 mg/dL [facility] Glucose 89 70 - 199 mg/dL [facility] Comment: Interpretive Data Fasting glucose [...] classification and Diagnosis of Diabetes Diabetes Care 202; 46: S19-S40. Current interpretive data was last revised 2022. Calcium 9.3 8.5 - 10.3 mg/dL [facility] Bilirubin, total 0.5 0.1 - 1.2 mg/dL [facility] Protein, pl 7.0 6.5 - 8.5 g/dL [facility] Albumin 4.4 3.5 - 5.0 g/dL [facility] Alk phos 52 40 - 130 Units/L [facility] ALT 14 7 - 45 Units/L [facility] AST 19 10 - 45 Units/L [facility] Blood 08/04/2024 2:50 PM HAIR OR BEAUTY SALON MANAGER 08/04/2024 2:55 PM HAIR OR BEAUTY SALON MANAGER Charlotte Miller MD LAB BLOOD ORDERABLES Final R esult [facility] [place] [address] * (ABNORMAL) Differential, auto (08/04/2024 2:38 PM HAIR OR BEAUTY SALON MANAGER) Neutrophil abs 5.0 1.5 - 6.5 K/cumm Comment:Testing performed by : [facility], [address] [place] [phone] Lymphocyte abs 4.4(H) 0.8 - 3.3 K/cumm C[facility]ER [facility] Comment:Testing performed by : [facility], [address] [place] [phone] Monocyte abs 0.9(H) 0.2 - 0.8 K/cumm [facility] Comment:Testing performed by : [facility], [address] [place] [phone] Eosinophil abs 0.0 0.0 - 0.5 K/cumm [facility] Comment:Testing performed by : [facility], [address] [place] [phone] Basophil abs 0.2(H) 0.0 - 0.1 K/cumm [facility] Comment:Testing performed by : [facility], [address] [place] [phone] Neutrophil pct 47.5 % [facility] Comment: Interpretive Data Percent cell count reference ranges are not reported, since discordance with absolute values may lead to misinterpretation of CBC data. Current Interpretive Data was last revised on 2017. Testing performed by: [facility], [address] [place] [phone] Lymphocyte pct 41.8 % [facility] Comment: Interpretive Data Percent cell count reference ranges are not reported, since discordance with absolute values may lead to misinterpretation of CBC data. Current Interpretive Data was last revised on 2017. Testing performed by: [facility], [address] [place] [phone] Monocyte pct 8.7 % [facility] Comment: Interpretive Data Percent cell count reference ranges are not reported, since discordance with absolute values may lead to misinterpretation of CBC data. Current Interpretive Data was last revised on 2017. Testing performed by: [facility], [address] [place] [phone] Eosinophil pct 0.5 % [facility] Comment: Interpretive Data Percent cell count reference ranges are not reported, since discordance with absolute values may lead to misinterpretation of CBC data. Current Interpretive Data was last revised on 2017. Testing performed by: [facility], [address] [place] [phone] Basophil pct 1.5 % [facility] Comment: Interpretive Data Percent cell count reference ranges are not reported, since discordance with absolute values may lead to misinterpretation of CBC data. Current Interpretive Data was last revised on 2017. Testing performed by: [facility], [address] [place] [phone] Blood 08/04/2024 2:38 PM HAIR OR BEAUTY SALON MANAGER 08/04/2024 2:54 PM HAIR OR BEAUTY SALON MANAGER us Charlotte Miller MD LAB BLOOD ORDERABLES Final R esult [facility] [place] [address] * (ABNORMAL) CBC with auto differential (08/04/2024 2:38 PM HAIR OR BEAUTY SALON MANAGER) WBC 10.5(H) 3.8 - 9.9 K/cumm Comment:Testing performed by : [facility], [address] [place] [address] Hgb 14.4 11.9 - 15.5 g/dL MAMADOU MARTINEZ Comment:Testing performed by : [facility], [address] [place] [address] Hct 43.7 35.6 - 45.5 % MAMADOU MARTINEZ Comment:Testing performed by : [facility], [address] [place] [address] Plt 245 150 - 400 K/cumm MAMADOU MARTINEZ Comment:Testing performed by : [facility], [address] [place] [address] MPV 8.5 6.8 - 10.4 fL MAMADOU MARTINEZ Comment:Testing performed by : [facility], [address] [place] [address] RBC 4.77 3.90 - 5.20 M/cumm MAMADOU MARTINEZ Comment:Testing performed by : [facility], [address] [place] [address] MCV 91.6 81.3 - 96.4 fL [facility]ERJAZMIN [facility]J Comment:Testing performed by : [facility], [address] [place] [address] MCH 30.3 27.1 - 33.3 pg CERJAZMIN [facility]J Comment:Testing performed by : [facility], [address] [place] [address] MCHC 33.0 32.3 - 35.7 g/dL [facility]ERJA[facility]J Comment:Testing performed by : [facility], [address] [place] [phone] RDW CV 13.7 11.1 - 14.9 % [facility] Comment:Testing performed by : [facility], [address] [place] [phone] NRBC abs 0.00 0.00 - 0.01 K/cumm MAMADOU [facility] Comment:Testing performed by : [facility], [address] [place] [phone] Blood 08/04/2024 2:38 PM HAIR OR BEAUTY SALON MANAGER 08/04/2024 2:54 PM HAIR OR BEAUTY SALON MANAGER Charlotte Miller MD LAB BLOOD ORDERABLES Final R esult Performing Organization Address [facility] Co de Phone Number [facility] [place] [address] * Hepatitis C (HCV) RNA PCR, quantitative Blood (03/03/2024 6:24 PM CDT) [facility] HCV RNA result Not Detected [facility] Comment: The quantifiable range of this assay is 15 IU/mL to 100,000,000 IU/mL (1.18 log IU/mL to 8.00 log IU/mL). Testing was performed by the [employer] 6800 HCV Test ([employer] Testing performed at [facility] Current Interpretive Data was last revised on 2021 Blood 03/03/2024 6:24 PM CDT 03/03/2024 7:05 PM CDT us Ilsa Kumari NP LAB MICROBIOLOGY - GENERAL ORDERABLES Final Result Performing Organization Address City/[facility]/ZIP Co de Phone Number [facility] Department [place] [address] [facility] * (ABNORMAL) Hemoglobin A1c (02/29/2024 8:06 PM CDT) [facility] Hgb A1C 7.1(H) 4.0 - 5.6 % Estimated Average Glucose 157 mg/dL MAMADOU MARTINEZ Comment: The ADA recommends reporting an estimated [...] MD LAB BLOOD ORDERABLES F inal Result MAMADOU MARTINEZ [facility] [place] [address] * (ABNORMAL) Lipid panel (02/29/2024 8:06 PM CDT) [facility] Cholesterol 153 30 - 199 mg/dL Comment: [...] revised on 2018. Triglycerides 210(H) <=149 mg/dL MAMADOU MARTINEZ Comment: Interpretive Data Ages < or = [...] revised on 2018. HDL 42 >=40 mg/dL [facility] MARTINEZ Comment: Interpretive Data Ages < or = [...] 2018. LDL, calculated 69 <=129 mg/dL [facility] MARTINEZ Comment: Interpretive Data Ages < or = [...] on 2018. Non-HDL Cholesterol 111 mg/dL MAMADOU [facility] Comment: Interpretive Data Ages < or [...] last revised on 2018. Chol/HDL ratio 4 [facility] Blood 02/29/2024 8:06 PM CDT 02/29/2024 8:43 PM CDT Andi Knapp MD LAB BLOOD ORDERABLES F inal Result [facility] Department of Laboratories [place], [place] [id number] from Last 3 Months or Most Recently Relevant to Health Maintenance Insurance [place] [employer] [id number] MEDICARE [facility] MEDICARE [facility] MEDICARE [facility] Advance Directives For more information, please contact: [phone] Documents on File Type Date Recorded Patient Insurance Premium Auditor Expl anation ADVANCE DIRECTIVE 03/13/2024 6:48 PM POWER [employer] * Full Code (Latest Code Status on File) Date Activated Date Inactivated Comments 02/29/2024 6:38 PM 03/07/2024 6:25 PM Care Teams Crime Scene Examiner Relationship Specialty Start Date End Date Jung Cummings MD [address] [facility] [address] [place] [address] PCP - General Family Practice 03/07/24
--- OUTSIDE RECORDS SUMMARY | 2024-09-28 12:44 | XMS_ITS | Encounter Summary ---
Author Organization [facility] Healthcare Address [address] [facility] [place] [address] Care Team Providers Care Rehab Assistant Name Role Phone Jung Cummings MD Primary Care Provider Encounter Details Date Type Department Care Team (Late st Contact Info) Description 09/09/2024 Telephone [facility] [place] [address] [facility] Floor 8 [place] [address] Brandt Alvarez, Social History Tobacco Use Types Packs/Day Years Used Date Smoking Tobacco: Former Passive Smoke Exposure: Past Smokeless Tobacco: Never Personal Safety Answer Date Recorded Have you ever been in or are you currently in a harmful physical or emotional relationship or is someone making you feel afraid or unsafe? Denies 02/29/2024 Comments Unknown Sex and Gender Information Value Date Recorded Sex Assigned at Not on file Legal Sex Female 1:21 AM TRANSCRIPTION SPECIALIST Gender Identity Not on file Sexual Orientation Not on file documented as of this encounter Plan of Treatment Not on file documented as of this encounter Visit Diagnoses Not on filedocumented in this encounter Care Teams Rehab Assistant Relationship Specialty Start Date End Date Jung Cummings MD [address] [facility] [address] [place] [address] PCP - General Family Practice 03/07/24 documented as of this encounter
--- OUTSIDE RECORDS SUMMARY | 2024-09-28 12:45 | XMS_ITS | Encounter Summary ---
Author Organization [facility] Health Address [address] [facility] [place] [address] Care Team Providers Care Pastry Wrapper Name Role Phone Saturnino Cummings MD Primary Care Provider [phone] Jung Cummings MD Primary Care Provider Reason for Visit * Reason Onset Date Comments Follow-Up Doc Band 05/29/2023 Encounter Details Date Type Department Care Team (Late st Contact Info) Description 05/29/2023 Telephone [facility] - Centralized Scheduling [address] [place] [phone] Charlotte Bliss MD [address] [address] Follow-Up Doc Band Social History Tobacco Use Types Packs/Day Years Used Date Smoking Tobacco: Never Smokeless Tobacco: Never Alcohol Use Standard Drinks/Week Comments No 0 (1 standard drink = 0.6 oz pur e alcohol) PHQ-2 Answer Date Recorded PHQ2 TOTAL SCORE 1 01/08/2023 Sex and Gender Information Value Date Recorded Sex Assigned at Female 07/25/2021 9:17 PM BIT TRIPOLER Gender Identity Female 07/25/2021 9:17 PM BIT TRIPOLER Sexual Orientation Not on file documented as of this encounter Miscellaneous Notes * Telephone Encounter - Ilsa Martínez - 05/29/2023 4:24 PM CDT Wants to know if she still needs pelvic US ( was scheduled back in January) Thursday AM 9:30? I do see on her 05/27/23 discharge instructions t keep apt as scheduled with Dr Bliss 06/01. WIll try secure chat, Dr Bliss not in office today. Call to pt to let her know will call her back early Thursday AM with response. Pt. agrees to plan and has no other questions at this time. * Telephone Encounter - Noelle Timmons - 05/29/2023 4:03 PM CDT Pt is calling to ask if she still needed to have the ultrasound done on Thursday morning if she had ahysteroscopy this past Thursday. If she does not she will still come to appt with Izaiah at 10:45am. Please advise. documented in this encounter Plan of Treatment Upcoming Encounters Date Type Department Care Team (Late st Contact Info) Description 10/31/2024 11:30 AM CDT Office Visit [facility] - UTILITY TENDER CARDING [address] [place] [phone] Charlotte Bliss MD [address] [place] [id number] documented as of this encounter Visit Diagnoses Not on filedocumented in this encounter Care Teams Pastry Wrapper Relationship Specialty Start Date End Date Saturnino Cummings MD PCP - General 08/09/13 05/23/24 Jung Cummings MD [address] [place] [address] [address] PCP - General Family Medicine 05/24/24 documented as of this encounter
--- OUTSIDE RECORDS SUMMARY | 2024-09-28 12:45 | XMS_ITS | Encounter Summary ---
Author Organization [facility] Address [address] [place] [address] Phone Care Team Providers Care Checker And Packer Name Role Phone Saturnino Cummings MD Primary Care Provide r Jung Cummings MD Primary Care Provider Encounter Details Date Type Department Care Team (Late st Contact Info) Description 05/31/2020 Orders Only [facility] RHEUMATOLOGY Scanning, Provider Social History Tobacco Use Types Packs/Day Years Used Date Smoking Tobacco: Former Smokeless Tobacco: Never Comments Unknown Sex and Gender Information Value Date Recorded Sex Assigned at Not on file Legal 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 Gender Identity Not on file Sexual Orientation Not on file documented as of this encounter Plan of Treatment Not on file documented as of this encounter Procedures Procedure Name Priority Date/Time Associated Diagnosis Comments SCAN - LABS 05/31/2020 documented in this encounter Results * SCAN - LABS (05/31/2020) us Provider Scanning Final Result documented in this encounter Visit Diagnoses Not on filedocumented in this encounter Care Teams Checker And Packer Relationship Specialty Start Date End Date Saturnino Cummings MD [address] [place] [address] PCP - General 04/22/17 03/06/24 Jung Cummings MD [address] [facility] [address] [place] [address] PCP - General Family Practice 03/07/24 documented as of this encounter
--- OUTSIDE RECORDS SUMMARY | 2024-09-28 12:45 | XMS_ITS | Encounter Summary ---
Author Organization [facility] Address [address] [place] [address] Phone Care Team Providers Care Loop Tacker Name Role Phone Saturnino Cummings MD Primary Care Provide r Jung Cummings MD Primary Care Provider Encounter Details Date Type Department Care Team (Latest Contact Info) Description 09/09/2018 Orders Only [facility] CARDIOLOGY Scanning, Provider Social History Tobacco Use Types Packs/Day Years Used Date Smoking Tobacco: Former Smokeless Tobacco: Never Comments Unknown Sex and Gender Information Value Date Recorded Sex Assigned at Not on file Legal Sex Female 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 Gender Identity Not on file Sexual Orientation Not on file documented as of this encounter Plan of Treatment Not on file documented as of this encounter Procedures Procedure Name Priority Date/Time Associated Diagnosis Comments SCAN - LABS 09/09/2018 documented in this encounter Results * SCAN - LABS (09/09/2018) us Provider Scanning Final Result documented in this encounter Visit Diagnoses Not on filedocumented in this encounter Care Teams Loop Tacker Relationship Specialty Start Date End Date Saturnino Cummings MD [address] [place] [address] PCP - General 04/22/17 03/06/24 Jung Cummings MD [address] [facility] [address] [place] [address] PCP - General Family Practice 03/07/24 documented as of this encounter
--- OUTSIDE RECORDS SUMMARY | 2024-09-28 12:45 | XMS_ITS | Referral Summary ---
Author Organization [facility] Address [address] [place] [address] Care Team Providers Care Surveillance Officer Name Role Phone Jung Cummings MD Primary Care Provider Source Comments [facility],non-owned Affiliates and Associated Physician Practices is amultiple site organization consisting of ambulatory clinics and hospital sitesin [place], [place], [place] and [place]. This disclosure is being madepursuant to the Care Everywhere program and may not contain all information available regarding this patient. Last updated 18.[facility] Encounters Date Type Department Care Team Description 09/16/2024 12:52 PM PROSTHODONTIST/OWNER - 09/16/2024 11:59 PM PROSTHODONTIST/OWNER Hospital Encounter [facility] [address] [address] Татьяна Cummings MD Ravin, Amy J, MD Discharge Disposition: Home or Self Care 08/29/2024 Travel from Last 3 Months Allergies Active Allergy Reactions Criticality Noted Date Comments Augmentin Urticaria Medium 11/30/2008 Codeine Nausea and/or Vomiting 09/06/2021 Makes pt feel sick Doxycycline Tinnitus Low 08/03/2012 palpatations Penicillins Urticaria Medium 11/30/2008 Patient says she can take keflex Sulfa Drugs Urticaria Medium 09/10/2018 Medications * Be aware that medications may not be up to date on this document. Alwaysverify current medications with the patient. Medication Sig Dispensed Refills Start Date End Date Status cetirizine (ZYRTEC ALLERGY) 10 MG gel capsule Take 1 (one) capsule by mouth once daily Active apixaban (Eliquis) 5 MG tablet Take 1 (one) tablet by mouth 2 times daily 08/04/2014 Active SITagliptin (Januvia) 100 MG tablet Take 1 (one) tablet by mouth once daily 06/23/2012 Active pantoprazole EC (PROTONIX) 40 MG tablet Take 1 (one) tablet by mouth once daily 06/30/2014 Active simvastatin (ZOCOR) 10 MG tablet Take 1 (one) tablet by mouth once daily 08/03/2014 Active losartan (COZAAR) 25 MG tablet Take 1 (one) tablet by mouth once daily 2 03/12/2018 Active losartan (COZAAR) 100 MG tablet Take 1 (one) tablet by mouth once daily 0 03/12/2018 Active XIIDRA 5 % opthalmic solution Instill 1 (one) drop into both eyes 2 times daily 03/12/2018 Active traMADol (ULTRAM) 50 MG tablet Take 1 (one) tablet by mouth every 6 hours as needed for Pain Active spironolactone (Aldactone) 25 MG tablet Take 10 mg by mouth once daily Active naloxone HCl (Narcan) 4 MG/0.1ML nasal spray naloxone 4 mg/actuation nasal spray Active nystatin (Mycostatin) powder Apply to affected area twice day 1 Each 3 03/27/2023 Active acetaminophen (Tylenol) 500 MG tablet Take 2 (two) tablets by mouth 2 times daily Active estradiol (Estrace) 0.1 MG/GM vaginal cream Insert 1 g into the vagina once daily Use daily for two weeks then twice a week 42.5 g 1 07/06/2023 Active Additional Information Patient not taking.Reported on 12/03/2023 levothyroxine (Tirosint) 100 MCG capsule Take 1 (one) capsule by mouth once daily Active metFORMIN ER 24hr (Glucophage XR) 500 MG tablet 11/02/2023 Active metoprolol succinate XL 24hr (Toprol XL) 100 MG tablet 11/17/2023 Active medroxyPROGESTERon e (Provera) 10 MG tablet TAKE 2 TABLETS BY MOUTH THREE TIMES DAILY 180 tablet 1 02/19/2024 Active Additional Information Patient not taking.Reported on 05/24/2024 sotalol (Betapace) 80 MG tablet Take 1 (one) tablet by mouth 2 times daily 04/25/2024 Active nystatin-triamcino lone (Mycolog) 284639-4.1 UNIT/GM-% cream Apply to affected area 2 times daily as needed 30 g 05/24/2024 Active Active Problems Problem Noted Date Diagnosed Date Vulvar irritation 05/24/2024 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 at ??8:43 AM Osteoarthritis of knee 05/10/2020 Urge incontinence 04/06/2018 Stress incontinence, female 04/06/2018 Encounter for routine gynecological examination 08/10/2014 Overview (02/18/2018): Overview: 01/28 normal pap 03/31 normal pap 05/02 normal pap 06/02 normal pap 08/04 normal pap 08/05 normal pap neg hpv 08/06 normal mammogram 10/09 normal pap neg hpv 10/10 normal mammogram Diabetes mellitus 04/07/2014 Thyroid activity decreased 04/07/2014 Obstructive sleep apnea syndrome 03/29/2014 Paroxysmal atrial fibrillation 03/28/2014 High cholesterol 04/11/2008 HTN (hypertension) 04/11/2008 Immunizations Name Administration Dates Next Due INFLUENZA VACCINE 06/06/2018 Social History Tobacco Use Types Packs/Day Years Used Date Smoking Tobacco: Never Smokeless Tobacco: Never Alcohol Use Standard Drinks/Week Comments No 0 (1 standard drink = 0.6 oz pur e alcohol) PHQ-2 Answer Date Recorded Patient Health Questionnaire-2 Score 2 05/26/2024 Sex and Gender Information Value Date Recorded Sex Assigned at Female 07/25/2021 9:17 PM PROSTHODONTIST/OWNER Gender Identity Female 07/25/2021 9:17 PM PROSTHODONTIST/OWNER Sexual Orientation Not on file Last Filed Vital Signs Vital Sign Reading Time Taken Comments Blood Pressure 119/82 05/24/2024 3:46 PM CDT Pulse 71 05/27/2023 11:51 AM CDT Temperature 36.3 ??C (97.4 ??F) 05/27/2023 11:17 AM C DT Respiratory Rate 18 05/27/2023 11:51 AM CDT Oxygen Saturation 96% 05/27/2023 11:51 AM CDT Inhaled Oxygen Concentration - - Weight 84.4 kg (186 lb) 09/16/2024 1:04 PM PROSTHODONTIST/OWNER Height 162.6 cm (5' 4 ) 09/16/2024 1:04 PM PROSTHODONTIST/OWNER Body Mass Index 31.93 09/16/2024 1:04 PM PROSTHODONTIST/OWNER Plan of Treatment Upcoming Encounters Date Type Department Care Team (Late st Contact Info) Description 10/31/2024 11:30 AM CDT Office Visit [facility] - FILTER TIP CATCHER [address] [facility] [address] [place] [address] Charlotte Bliss MD [address] [address] Procedures Procedure Name Priority Date/Time Associated Diagnosis Comments MAMMO BILAT SCREENING W BLAIRE Routine 09/16/2024 1:13 PM PROSTHODONTIST/OWNER Encounter for screening mammogram for malignant neoplasm of breast BASIC METABOLIC PANEL (CALCIUM TOTAL) STAT 04/08/2022 7:28 AM CDT Postmenopausal bleeding DEXA BONE DENSITY 2 SITES Routine 07/07/2011 1:55 PM PROSTHODONTIST/OWNER Osteopenia from Last 3 Months or Most Recently Relevant to Health Maintenance Results * Mammo Bilat Screening W Blaire (09/16/2024 1:13 PM PROSTHODONTIST/OWNER) Anatomical Region Laterality Modality Breast Bilateral Mammography 09/28/2024 8:24 AM PROSTHODONTIST/OWNER Impressions 09/28/2024 8:45 AM PROSTHODONTIST/OWNER IMPRESSION: No mammographic evidence of malignancy in either breast. ASSESSMENT: BIRADS Category 1: Negative mammogram. RECOMMENDATION: Bilateral screening mammogram in one year. Thank you for allowing us to participate in the care of your patient. [facility] utilizes [employer] as a reminder system to notify patients of their next recommended mammogram. > Interpreting Provider: Nidhi Mcdonald MD on 09/28/2024 8:45 AM Narrative 09/28/2024 8:45 AM PROSTHODONTIST/OWNER EXAMINATION: Digital screening mammogram. Low-dose full-field digital breast tomosynthesis examination was performed with synthetic 2D images. Computer assisted detection was utilized. DATE: 09/16/2024 1:13 PM PRIOR: ??2022 and prior mammograms dating back to 2019 outside imaging now available. BREAST PARENCHYMAL DENSITY: The breasts are almost entirely fatty. FINDINGS: No suspicious masses, areas of architectural distortion or microcalcifications are evident on synthetic 2D mammogram or tomosynthesis images. There has been no significant interval change since the prior examination. Jung Cummings MD MAMMO ORDERABL ES * (ABNORMAL) BASIC METABOLIC PANEL (CALCIUM TOTAL) (04/08/2022 7:28 AM CDT) Glucose 119(H) 70 - 105 mg/dL 04/08/2022 7:55 AM CDT [facility] Sodium 139 136 - 145 mmol/L 04/08/2022 7:55 AM CDT [facility] Potassium 4.6 3.5 - 5.1 mmol/L 04/08/2022 7:55 AM CDT [facility] Chloride 108(H) 98 - 107 mmol/L 04/08/2022 7:55 AM CDT [facility] CO2 16(L) 23 - 31 mmol/L 04/08/2022 7:55 AM CDT [facility] Calcium 9.8 8.4 - 10.4 mg/dL 04/08/2022 7:55 AM CDT [facility] Anion Gap 15 8 - 18 mmol/L 04/08/2022 7:55 AM CDT [facility] BUN 20 9.8 - 20.1 mg/dL 04/08/2022 7:55 AM CDT [facility] Creatinine 1.02 0.57 - 1.11 mg/dL 04/08/2022 7:55 AM CDT [facility] eGFR by CKD-EPI 57(L) >=90 mL/min/1.7 3 m2 04/08/2022 7:55 AM CDT [facility] Blood BLOOD SPECIMEN / Unknown Venipuncture / Unknown 04/08/2022 7:28 AM CDT 04/08/2022 7:31 AM CDT Charlotte Bliss MD LAB - CHEMISTRY ELIANE JUNIOR [facility] [address] [place] [address] * DEXA BONE DENSITY 2 SITES (07/07/2011 1:55 PM PROSTHODONTIST/OWNER) Anatomical Region Laterality Modality Nuclear Medicine 07/07/2011 3:24 PM PROSTHODONTIST/OWNER Impressions 07/07/2011 3:24 PM PROSTHODONTIST/OWNER 1. ??Normal bone densitometry of the lumbar spine and hips. Narrative 07/07/2011 3:24 PM PROSTHODONTIST/OWNER Bone densitometry of the lumbar spine and both hips. DATE: 07/07/2011 INDICATION: Osteopenia, diabetes, hypertension, hypothyroidism, arthritis, postmenopausal TECHNIQUE: Dual photon bone densitometry was performed of the lumbar spine and both hips. FINDINGS: The bone mineral density of L1-L4 is 1.279 g/sq cm. This is 108% of a young adult with a T-score of 0.8 which is normal by WHO criteria. The average bone mineral density of multiple regions of the right proximal femur is 0.937 g/sq cm. This is 93% of a young adult with a T-score of -0.6 which is normal by WHO criteria. The average bone mineral density of multiple regions of the left proximal femur is 0.988 g/sq cm. This is 98% of a young adult with a T-score of -0.2 which is normal by WHO criteria. Prior studies: None. Procedure Note Davey Bhakta MD - 07/07/2011 Bone densitometry of the lumbar spine and both hips. DATE: 07/07/2011 INDICATION: Osteopenia, diabetes, hypertension, hypothyroidism, arthritis, postmenopausal TECHNIQUE: Dual photon bone densitometry was performed of the lumbar spine and both hips. FINDINGS: The bone mineral density of L1-L4 is 1.279 g/sq cm. This is 108% of a young adult with a T-score of 0.8 which is normal by WHO criteria. The average bone mineral density of multiple regions of the right proximal femur is 0.937 g/sq cm. This is 93% of a young adult with a T-score of -0.6 which is normal by WHO criteria. The average bone mineral density of multiple regions of the left proximal femur is 0.988 g/sq cm. This is 98% of a young adult with a T-score of -0.2 which is normal by WHO criteria. Prior studies: None. IMPRESSION 1. Normal bone densitometry of the lumbar spine and hips. Maurice Fisher MD DEXA ORDERABLES from Last 3 Months or Most Recently Relevant to Health Maintenance Care Teams Surveillance Officer Relationship Specialty Start Date End Date Jung Cummings MD [address] [facility] [address] [place] [address] PCP - General Family Medicine 05/24/24
--- OUTSIDE RECORDS SUMMARY | 2024-09-28 12:45 | XMS_ITS | Clinical Summary ---
Author Organization [facility] Address [address] [place] [address] Care Team Providers Care Political Organizer Name Role Phone Jung Cummings MD Primary Care Provider Source Comments [facility],non-owned Affiliates and Associated Physician Practices is amultiple site organization consisting of ambulatory clinics and hospital sitesin [place], [place], [place] and [place]. This disclosure is being madepursuant to the Care Everywhere program and may not contain all information available regarding this patient. Last updated 18.[facility] Allergies Active Allergy Reactions Criticality Noted Date [...] times daily 04/25/2024 Active nystatin-triamcino lone (Mycolog) 977763-0.1 UNIT/GM-% cream Apply to affected area 2 [...] 03/28/2014 High cholesterol 04/11/2008 HTN (hypertension) 04/11/2008 Encounters Date Type Department Care Team Description 09/16/2024 12:52 PM HEATER HELPER FORGE - 09/16/2024 11:59 PM HEATER HELPER FORGE Hospital Encounter [facility] [address] [place] [address] Татьяна Cummings MD Ravin, Amy J, MD Discharge Disposition: Home or Self Care 08/29/2024 Travel from Last 3 Months Immunizations Name Administration Dates Next Due INFLUENZA VACCINE 06/06/2018 Family History Medical History Relation Name Comments Cancer - Lung Brother Diabetes - Type 2 Father Diabetes - Type 2 Mother Cancer - Breast Neg Hx Cancer - Ovarian Neg Hx Relation Name Status Comments Brother Father Mother Social History Tobacco Use Types Packs/Day Years Used Date Smoking Tobacco: Never Smokeless Tobacco: Never Alcohol Use Standard Drinks/Week Comments No 0 (1 standard drink = 0.6 oz pur e alcohol) PHQ-2 Answer Date Recorded Patient Health Questionnaire-2 Score 2 05/26/2024 Sex and Gender Information Value Date Recorded Sex Assigned at Female 07/25/2021 9:17 PM HEATER HELPER FORGE Gender Identity Female 07/25/2021 9:17 PM HEATER HELPER FORGE Sexual Orientation Not on file Last Filed [...] 84.4 kg (186 lb) 09/16/2024 1:04 PM HEATER HELPER FORGE Height 162.6 cm (5' 4 ) 09/16/2024 1:04 PM HEATER HELPER FORGE Body Mass Index 31.93 09/16/2024 1:04 PM HEATER HELPER FORGE Plan of Treatment Upcoming Encounters Date Type Department Care Team (Late st Contact Info) Description 10/31/2024 11:30 AM CDT Office Visit [facility] - FOOD PRESERVATION SCIENTIST [address] [address] Charlotte Bliss MD [address] [address] Health Maintenance Due Date Last Done Comments MEDICARE AWV ? 12 MONTHS 1945 DTAP/TDAP/TD VACCINES (1 - Tdap) 12/14/1963 PNEUMOCOCCAL VACCINE 50+ (1 of 2 - PCV) 12/14/1963 ZOSTER VACCINE (1 of 2) 1994 Respiratory Syncytial Virus (RSV) Vaccine Pt: or over 60 yrs (1 - 1-dose 75+ series) 12/14/2019 DIABETES RETINOPATHY SCREENING 05/10/2020 DIABETES-FOOT EXAM WITH MONOFILAMENT 05/10/2020 COVID-19 VACCINE ( season) 2024 05/21/2022, 11/21/2021, 05/23/2021, Additional history exists INFLUENZA VACCINE (#1) 2024 2, 06/22/2021, 05/04/2020, Additional history exists DEPRESSION SCREENING 08/24/2024 05/24/2024, 01/16/20 23 DIABETES - URINE PROTEIN SCREENING 08/24/2024 DIABETES-HGB A1C 08/31/2024 02/29/2024 DIABETES-SERUM CREATININE 08/04/2025 08/04/2024, BONE DENSITY TESTING Completed 07/07/2011 HEPATITIS B VACCINE Aged Out No longe r eligible based on patient's age to complete this topic HIB VACCINE Aged Out No longer eligi ble based on patient's age to complete this topic HPV VACCINE Aged Out No longer eligi ble based on patient's age to complete this topic MENINGOCOCCAL (Group B) VACCINE Aged Out No longer eligible based on patient's age to complete this topic MENINGOCOCCAL VACCINE Aged Out No geoffrey tisha eligible based on patient's age to complete this topic Procedures Procedure Name Priority Date/Time Associated Diagnosis Comments MAMMO BILAT SCREENING W SHAHZAD Routine 09/16/2024 1:13 PM HEATER HELPER FORGE Encounter for screening mammogram for malignant neoplasm of breast BASIC METABOLIC PANEL (CALCIUM TOTAL) STAT 04/08/2022 7:28 AM CDT Postmenopausal bleeding DEXA BONE DENSITY 2 SITES Routine 07/07/2011 1:55 PM HEATER HELPER FORGE Osteopenia from Last 3 Months or Most Recently Relevant to Health Maintenance Results * Mammo Bilat Screening W Shahzad (09/16/2024 1:13 PM HEATER HELPER FORGE) Anatomical Region Laterality Modality Breast Bilateral Mammography 09/28/2024 8:24 AM HEATER HELPER FORGE Impressions 09/28/2024 8:45 AM HEATER HELPER FORGE IMPRESSION: No mammographic evidence of malignancy in either breast. ASSESSMENT: BIRADS Category 1: Negative mammogram. RECOMMENDATION: Bilateral screening mammogram in one year. Thank you for allowing us to participate in the care of your patient. [facility] utilizes [email or web address] as a reminder system to notify patients of their next recommended mammogram. > Interpreting Provider: Nidhi Mcdonald MD on 09/28/2024 8:45 AM Narrative 09/28/2024 8:45 AM HEATER HELPER FORGE EXAMINATION: Digital screening mammogram. Low-dose full-field digital [...] - 105 mg/dL 04/08/2022 7:55 AM CDT [facility] Sodium 139 136 - 145 mmol/L 04/08/2022 7:55 AM CDT [facility] Potassium 4.6 3.5 - 5.1 mmol/L 04/08/2022 7:55 AM CDT [facility] Chloride 108(H) 98 - 107 mmol/L 04/08/2022 7:55 AM CDT [facility] CO2 16(L) 23 - 31 mmol/L 04/08/2022 7:55 AM CDT [facility] Calcium 9.8 8.4 - 10.4 mg/dL 04/08/2022 7:55 AM CDT [facility] Anion Gap 15 8 - 18 mmol/L 04/08/2022 7:55 AM CDT [facility] BUN 20 9.8 - 20.1 mg/dL 04/08/2022 7:55 AM CDT [facility] Creatinine 1.02 0.57 - 1.11 mg/dL 04/08/2022 7:55 AM CDT [facility] eGFR by CKD-EPI 57(L) >=90 mL/min/1.7 3 m2 04/08/2022 7:55 AM CDT [facility] Blood BLOOD SPECIMEN / Unknown Venipuncture / Unknown 04/08/2022 7:28 AM CDT 04/08/2022 7:31 AM CDT Charlotte Bliss MD LAB - CHEMISTRY ELIANE JUNIOR [facility] Organization Address City/State/ZIP Co de Phone Number [facility] [address] [place] [address] * DEXA BONE DENSITY 2 SITES (07/07/2011 1:55 PM HEATER HELPER FORGE) Anatomical Region Laterality Modality Nuclear Medicine 07/07/2011 3:24 PM HEATER HELPER FORGE Impressions 07/07/2011 3:24 PM HEATER HELPER FORGE 1. ??Normal bone densitometry of the lumbar spine and hips. Narrative 07/07/2011 3:24 PM HEATER HELPER FORGE Bone densitometry of the lumbar spine and [...] Recently Relevant to Health Maintenance Care Teams Political Organizer Relationship Specialty Start Date End Date Jung Cummings MD [address] [place] [address] PCP - General Family Medicine 05/24/24
--- OUTSIDE RECORDS SUMMARY | 2024-09-28 12:45 | XMS_ITS | Continuity of Care Document ---
Author Organization [facility] Address [address] [facility] [address] [place] [address] Phone Care Team Providers Care Utility Worker Production Name Role Phone Rafat Lala MD, FACS Unavailable Unavailab le Allergies, Adverse Reactions, Alerts Substance Reaction Status Criticality Cephalosporins Active No Informatio n doxycycline Active No Information Penicillins Active No Information Medications Medication Instructions Dosage Effective Dates (start - stop) Status Comments Restasis 0.05 % Eye Dropperette instill 1 drop by Ophthalmic route every 12 hours into affected eye(s) 1.00 drop - Active Please give 90 day supply Verapamil SR 180 mg Tab take 1 tablet (180MG) by ORAL route every day with food 180 MG - Active Januvia 50 mg Tab take 2 tablet (100MG) by ORAL route every day 100 MG - Active Crestor 20 mg Tab take 1 tablet (20MG) by ORAL route every day 20 MG - Active Celebrex 100 mg Cap take 2 capsule (200MG) by ORAL route 2 times every day 200 MG - Active Altace 10 mg Cap take 1 capsule (10MG) by ORAL route every day 10 MG - Active Protonix 20 mg Tab take 2 tablet (40MG) by ORAL route every day 40 MG - Active levothyroxine 125 mcg capsule take 1 capsule (125MCG) by oral route every day 125 MCG - Active DotBlu 1.5 billion cell capsule - Active CALCIUM 500-VIT D3 (unknown strength) Not Available - Active FISH OIL (unknown strength) Not Available - Active Vitamin B-100 Complex tablet - Active Restasis 0.05 % Eye Dropperette instill 1 drop by Ophthalmic route every 12 hours into affected eye(s) 1.00 drop - No Longer Active Restasis 0.05 % Eye Dropperette instill 1 drop by Ophthalmic route every 12 hours into affected eye(s) 1.00 drop - No Longer Active Procedures Procedure Date Office/outpatient Visit, Est Fundus Photography W/ Report No Charge Refraction Eye Exam, New Patient Dilated Retinal Exam W Interpretation Ma Advance Directives Directive Yes / No Effective Date File Name Resuscitation Not Answered N/A N/A Life Support Not Answered N/A N/A Intubation Not Answered N/A N/A Antibiotics Not Answered N/A N/A IV Fluid Support Not Answered N/A N/A Tube Feed Not Answered N/A N/A Other Directive N/A N/A WARNING:The information contained in this section is historical and is provided for information only and does not constitute a legal document or any assurance that the information is still accurate. Please verify the information with the abad of the legal document before using it for clinical purposes. Encounters Encounter Description Practice Location Reason(s) For Visit Diagnoses Date Provider Providers Copied on Encounter Office/outpa tient Visit, Est [facility] [facility], [id number] [facility] [address] [place], [place], [id number], tel:[phone] [address] blurry vision (chief complaint) SENILE NUCLEAR CATARACTDiabet es Mellitus Type 2, Uncomplicated Apr- 0-201 3 [address]. [address], [place], [place], [id number], [place]. tel:[phone] Referring Provider: Rafat Oviedo, [address], [place], [address] . tel:[phone] [facility], [address], [place], [place], [id number], [place] tel:[phone] [address] [place] blurry vision (chief complaint)mac ular degeneration check (chief complaint)rou kenisha exam (chief complaint) Diabetes Mellitus Type 2, UncomplicatedS ENILE NUCLEAR CATARACTTEAR FILM INSUFFIC NOSPTOSIS OF EYELID NOS 3 Dai [address]. [address], [address], [place], [place], [id number], [place]. tel:[phone] Family History Family Member Type Diagnosis Age At Onset No Information Payers Payer name Insurance type Covered green party ID Authoriza tion(s) [place] [id number] [place] BL [id number] Social History Type Description Quantity Date Captured Comments Alcohol Use Details No Caffeine Use Details Tobacco Use Status No Information Smoking Status Former smoker Smoking Tobacco Use Details Cigarette: No Details Available Cigarette: No Details Available Sex Female Chief Complaint And Reason For Visit From encounter dated '05/23/2013 13:30'. blurry vision (chief complaint) Reason For Referral Reason For Referral No Information History Of Present Illness Encounter Date Complaint History Of Prese nt Illness No Information Functional Status Date Functional Assessmen t No Information Medications Administered Medication Instructions Dosage Effective Dates (start - stop) Status Comments Restasis 0.05 % Eye Dropperette instill 1 drop by Ophthalmic route every 12 hours into affected eye(s) 1.00 drop - No Longer Active Instructions Date Instruction Additional Infor candy - 1 yr complete Related to See i mpression: general plan General plan -SENILE NUCLEAR CATARACT -Diabetes Mellitus Type 2, Uncomplicated - Cataracts account for the patient's complaints. No treatment currently recommended. The patient will monitor vision changes and contact us with any decrease in vision. Discussed risks of progression. Emphasized blood sugar control. Educational materials provided:Cataract and Diabetes.ERX Restasis to Pts [facility] Related to See impression: general plan - Return in 6 months for Cataract Eval, Fundus Photos, Refraction, Related to Diabetes Type II Diabetes Type II, No Retinopathy noted. Letter to Dr. Martín Landrum dictated. - Monitor Related to Diabetes Type II Ptosis, BUL - establ ished, stable - Monitor. Not related to thyroid condition Related to Ptosis Cataract, Nuclear Sc lerosis, OU - Monitor. Discussed mild status w/ pt. Related to Cataract, Nuclear Sclerosis TEAR FILM INSUFFIC N OS, OU - established, stable - Continue Restasis. Rx Given. Monitor Related to TEAR FILM INSUFFIC NOS Assessments Type Assessment Date No Information Patient Care Teams Name Effective Dates (start - stop) Status Members No Information
--- OUTSIDE RECORDS SUMMARY | 2024-09-28 12:45 | XMS_ITS | Clinical Summary ---
Author Organization [facility] Address [address] [place] [address] Care Team Providers Care Technical Manager [employer] Name Role Phone Unavailable Primary Care Provider Unavailabl e Social History Tobacco Use Types Packs/Day Years Used Date Smoking Tobacco: Never Assessed Comments Unknown Sex and Gender Information Value Date Recorded Sex Assigned at Not on file Legal Sex Female 7:07 PM CDT Gender Identity Not on file Sexual Orientation Not on file Plan of Treatment Health Maintenance Due Date Last Done Comments Hepatitis C 1962 DTaP, Tdap and Td Vaccines ( 1 - Tdap) 12/14/1963 Zoster Vaccines (1 of 2) 1994 Dexa Scan (General) 2009 Pneumococcal Vaccine: 65+ Ye ars (1 of 1 - PCV) 2009 RSV Immunization or 60+ Years (1 - 1-dose 75+ series) 12/14/2019 COVID-19 Vaccine ( - 2023-2 5 season) 2024 Influenza Adult (#1) 2024 Meningococcal B Vaccine Aged Out No l onger eligible based on patient's age to complete this topic Meningococcal Vaccine Aged Out No geoffrey tisha eligible based on patient's age to complete this topic RSV Immunizations Under 20 Months Aged Out No longer eligible based on patient's age to complete this topic
--- OUTSIDE RECORDS SUMMARY | 2024-09-28 12:45 | XMS_ITS | Encounter Summary ---
Author Organization [facility] Address [address] [place] [address] Phone Care Team Providers Care Chief Engineer Name Role Phone Saturnino Cummings MD Primary Care Provide r Jung Cummings MD Primary Care Provider Encounter Details Date Type Department Care Team (Late st Contact Info) Description 05/17/2020 Orders Only [facility] RHEUMATOLOGY Scanning, Provider Social History Tobacco Use Types Packs/Day Years Used Date Smoking Tobacco: Former Smokeless Tobacco: Never Comments Unknown Sex and Gender Information Value Date Recorded Sex Assigned at Not on file 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 Gender Identity Not on file Sexual Orientation Not on file documented as of this encounter Plan of Treatment Not on file documented as of this encounter Procedures Procedure Name Priority Date/Time Associated Diagnosis Comments SCAN - RADIOLOGY/IMAGING 05/17/2020 documented in this encounter Results * SCAN - RADIOLOGY/IMAGING (05/17/2020) Anatomical Region Laterality Modality Other us Provider Scanning Final Result documented in this encounter Visit Diagnoses Not on filedocumented in this encounter Care Teams Chief Engineer Relationship Specialty Start Date End Date Saturnino Cummings MD [address] [place] [address] PCP - General 04/22/17 03/06/24 Jung Cummings MD [address] [facility] [address] [place] [address] PCP - General Family Practice 03/07/24 documented as of this encounter
--- OUTSIDE RECORDS SUMMARY | 2024-09-28 12:45 | XMS_ITS | Patient Health Summary ---
Author Organization [facility] Address [address] [place] [address] Care Team Providers Care Machine Silk Screen Printer Name Role Phone Jung Cummings MD Primary Care Provider Note from [facility],non-owned Affiliates and Associated Physician Practices is amultiple site organization consisting of ambulatory clinics and hospital sitesin [place], [place], [place] and [place]. This disclosure is being madepursuant to the Care Everywhere program and may not contain all information available regarding this patient. Last updated 18.[facility] Allergies * Augmentin(Urticaria) -Medium Criticality * Codeine(Nausea and/or Vomiting) * Doxycycline(Tinnitus) -Low Criticality * Penicillins(Urticaria) -Medium Criticality * Sulfa Drugs(Urticaria) -Medium Criticality Medications * Be aware that medications may not be up to date on this document. Alwaysverify current medications with the patient. * cetirizine (ZYRTEC ALLERGY) 10 MG gel capsule Take 1 (one) capsule by mouth once daily * apixaban (Eliquis) 5 MG tablet(Started 08/04/2014) Take 1 (one) tablet by mouth 2 times daily * SITagliptin (Januvia) 100 MG tablet(Started 06/23/2012) Take 1 (one) tablet by mouth once daily * pantoprazole EC (PROTONIX) 40 MG tablet(Started 06/30/2014) Take 1 (one) tablet by mouth once daily * simvastatin (ZOCOR) 10 MG tablet(Started 08/03/2014) Take 1 (one) tablet by mouth once daily * losartan (COZAAR) 25 MG tablet(Started 03/12/2018) Take 1 (one) tablet by mouth once daily 2 refills left * losartan (COZAAR) 100 MG tablet(Started 03/12/2018) Take 1 (one) tablet by mouth once daily * XIIDRA 5 % opthalmic solution(Started 03/12/2018) Instill 1 (one) drop into both eyes 2 times daily * traMADol (ULTRAM) 50 MG tablet Take 1 (one) tablet by mouth every 6 hours as needed for Pain * spironolactone (Aldactone) 25 MG tablet Take 10 mg by mouth once daily * naloxone HCl (Narcan) 4 MG/0.1ML nasal spray naloxone 4 mg/actuation nasal spray * nystatin (Mycostatin) powder(Started 03/27/2023) Apply to affected area twice day 3 refills by 03/26/2024 * acetaminophen (Tylenol) 500 MG tablet Take 2 (two) tablets by mouth 2 times daily * estradiol (Estrace) 0.1 MG/GM vaginal cream(Started 07/06/2023) Insert 1 g into the vagina once daily Use daily for two weeks then twice a week 1 refill by 07/05/2024 * levothyroxine (Tirosint) 100 MCG capsule Take 1 (one) capsule by mouth once daily * metFORMIN ER 24hr (Glucophage XR) 500 MG tablet(Started 11/02/2023) * metoprolol succinate XL 24hr (Toprol XL) 100 MG tablet(Started 11/17/2023) * medroxyPROGESTERone (Provera) 10 MG tablet(Started 02/19/2024) TAKE 2 TABLETS BY MOUTH THREE TIMES DAILY 1 refill by 02/18/2025 * sotalol (Betapace) 80 MG tablet(Started 04/25/2024) Take 1 (one) tablet by mouth 2 times daily * nystatin-triamcinolone (Mycolog) 226599-3.1 UNIT/GM-% cream(Started 05/24/2024) Apply to affected area 2 times daily as needed Active Problems Problem Noted Date Diagnosed Date Vulvar irritation 05/24/2024 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 Osteoarthritis of knee 05/10/2020 Urge incontinence 04/06/2018 Stress incontinence, female 04/06/2018 Encounter for routine gynecological examination 08/10/2014 Diabetes mellitus 04/07/2014 Thyroid activity decreased 04/07/2014 Obstructive sleep apnea syndrome 03/29/2014 Paroxysmal atrial fibrillation 03/28/2014 High cholesterol 04/11/2008 HTN (hypertension) 04/11/2008 Immunizations * INFLUENZA VACCINE(Given 06/06/2018) Social History Tobacco Use Types Packs/Day Years Used Date Smoking Tobacco: Never Smokeless Tobacco: Never Alcohol Use Standard Drinks/Week Comments No 0 (1 standard drink = 0.6 oz pur e alcohol) PHQ-2 Answer Date Recorded Patient Health Questionnaire-2 Score 2 05/26/2024 Sex and Gender Information Value Date Recorded Sex Assigned at Female 07/25/2021 9:17 PM BREEDING MANAGER Gender Identity Female 07/25/2021 9:17 PM BREEDING MANAGER Sexual Orientation Not on file Last Filed [...] 84.4 kg (186 lb) 09/16/2024 1:04 PM BREEDING MANAGER Height 162.6 cm (5' 4 ) 09/16/2024 1:04 PM BREEDING MANAGER Body Mass Index 31.93 09/16/2024 1:04 PM BREEDING MANAGER Procedures * MAMMO BILAT SCREENING W SHAHZAD(Performed 09/16/2024) Performed for Encounter for screening mammogram for malignant neoplasm of breast * SURESWAB VAGINOSIS/VAGINITIS PLUS(Performed 05/25/2024) Performed for Vulvar irritation * CULTURE URINE(Performed 03/23/2024) Performed for Acute cystitis without hematuria * CULTURE URINE(Performed 12/15/2023) Performed for Dysuria * CA SONO EXAM, TRANSVAGINAL(Performed 07/03/2023) Performed for Postmenopausal bleeding * IMAGING/RADIOLOGY/XRAY RESULTS ORDER(Performed 07/03/2023) * CULTURE URINE(Performed 06/25/2023) Performed for Cloudy urine * CULTURE URINE(Performed 06/01/2023) Performed for Cloudy urine * CARDIAC RHYTHM STRIP ORDER(Performed 05/29/2023) * GLUCOSE - POINT OF CARE(Performed 05/27/2023) * PATHOLOGY TISSUE EXAM (STL)(Performed 05/27/2023) Performed for Diagnosis unknown * LARYNGEAL MASK AIRWAY(Performed 05/27/2023) * CA HYSTEROSCOPY,ENDOMET ABLATION(Performed 05/27/2023) Performed for Diagnosis unknown * GLUCOSE - POINT OF CARE(Performed 05/27/2023) * MAMMOGRAM(Performed 04/16/2023) * CA BIOPSY OF UTERUS LINING(Performed 01/19/2023) Performed for Postmenopausal bleeding, Endometrial hyperplasia without atypia, simple * PATHOLOGY TISSUE(Performed 01/15/2023) Performed for Postmenopausal bleeding, Endometrial hyperplasia without atypia, simple * CULTURE URINE(Performed 11/25/2022) Performed for Acute cystitis without hematuria * CULTURE URINE(Performed 04/24/2022) Performed for Acute cystitis without hematuria * CARDIAC RHYTHM STRIP ORDER(Performed 04/10/2022) * GLUCOSE - POINT OF CARE(Performed 04/08/2022) * PATHOLOGY TISSUE EXAM (STL)(Performed 04/08/2022) Performed for Diagnosis unknown * LARYNGEAL MASK AIRWAY(Performed 04/08/2022) * CA HYSTEROSCOPY,ENDOMET ABLATION(Performed 04/08/2022) Performed for Diagnosis unknown * BASIC METABOLIC PANEL (CALCIUM TOTAL)(Performed 04/08/2022) Performed for Postmenopausal bleeding * GLUCOSE - POINT OF CARE(Performed 04/08/2022) * CULTURE URINE(Performed 02/18/2022) Performed for Acute cystitis without hematuria * CA SONO EXAM, TRANSVAGINAL(Performed 02/13/2022) Performed for Postmenopausal bleeding * IMAGING/RADIOLOGY/XRAY RESULTS ORDER(Performed 02/13/2022) * CA BIOPSY OF UTERUS LINING(Performed 11/12/2021) Performed for Postmenopausal bleeding, Abnormal endometrial ultrasound, Cervical polyp * PATHOLOGY TISSUE(Performed 11/11/2021) Performed for Postmenopausal bleeding, Abnormal endometrial ultrasound, Cervical polyp * CA SONO EXAM, TRANSVAGINAL(Performed 09/03/2021) Performed for Postmenopausal bleeding * IMAGING/RADIOLOGY/XRAY RESULTS ORDER(Performed 09/03/2021) * IMAGING/RADIOLOGY/XRAY RESULTS ORDER(Performed 09/03/2021) * CULTURE URINE(Performed 06/08/2021) Performed for Dysuria * CULTURE URINE(Performed 08/10/2020) Performed for Acute cystitis without hematuria * CULTURE URINE(Performed 03/05/2020) Performed for Acute cystitis without hematuria * CA CYSTOURETHROSCOPY(Performed 10/19/2018) Performed for Urge incontinence, Stress incontinence, female * CULTURE URINE COMPREHENSIVE(Performed 10/19/2018) Performed for Recurrent UTI * CULTURE URINE COMPREHENSIVE(Performed 09/10/2018) Performed for Dysuria * CA INSERT NON-INDWELLING BLADDER(Performed 09/10/2018) Performed for Dysuria * URINALYSIS - POINT OF CARE(Performed 09/10/2018) Performed for Dysuria * CA INSERT NON-INDWELLING BLADDER(Performed 03/21/2018) Performed for Mixed stress and urge urinary incontinence, Hematuria, unspecified type * URINALYSIS - POINT OF CARE (AMB) [facility](Performed 03/03/2018) Performed for Mixed stress and urge urinary incontinence * URINALYSIS W/MICROSCOPIC NO CULTURE(Performed 03/03/2018) Performed for Mixed stress and urge urinary incontinence * CULTURE URINE(Performed 03/03/2018) Performed for Mixed stress and urge urinary incontinence * MAMMO BILAT SCREENING(Performed 10/15/2016) Performed for Visit for screening mammogram * PAP IMAGE-GUIDED W HPV(Performed 10/01/2015) * PATHOLOGY/GENETICS HISTORICAL-ONBASE(Performed 10/01/2015) * MAMMO BILAT SCREENING(Performed 09/07/2015) Performed for Visit for screening mammogram * MAMMO BILAT SCREENING(Performed 08/10/2014) Performed for Other screening mammogram * PAP IMAGE-GUIDED W HPV(Performed 08/10/2013) * MAMMO BILAT SCREENING(Performed 08/09/2013) Performed for Other screening mammogram * PATHOLOGY/GENETICS HISTORICAL-ONBASE(Performed 08/09/2013) * MAMMO BILAT SCREENING(Performed 08/03/2012) Performed for Other screening mammogram * PATHOLOGY/GENETICS HISTORICAL-ONBASE(Performed 08/03/2012) * MAMMO RIGHT DIAGNOSTIC(Performed 07/11/2011) Performed for Abnormal mammogram, unspecified * DEXA BONE DENSITY 2 SITES(Performed 07/07/2011) Performed for Osteopenia * MAMMO BILAT SCREENING(Performed 07/07/2011) Performed for Other screening mammogram * MAMMO BILAT SCREENING(Performed 05/28/2010) Performed for Other screening mammogram * PATHOLOGY/GENETICS HISTORICAL-ONBASE(Performed 05/28/2010) * PATHOLOGY/GENETICS HISTORICAL-ONBASE(Performed 05/28/2010) * MAMMO BILAT SCREENING(Performed 05/02/2009) Performed for Other Screening Mammogram * PAP THINPREP(Performed 05/02/2009) * PATHOLOGY/GENETICS HISTORICAL-ONBASE(Performed 11/30/2008) * PATHOLOGY/GENETICS HISTORICAL-ONBASE(Performed 11/30/2008) * PAP SMEAR 1 SLIDE(Performed 08/24/1998) Results * Mammo Bilat Screening W Shahzad (09/16/2024 1:13 PM BREEDING MANAGER) Anatomical Region Laterality Modality Breast Bilateral Mammography 09/28/2024 8:24 AM BREEDING MANAGER Impressions 09/28/2024 8:45 AM BREEDING MANAGER IMPRESSION: No mammographic evidence of malignancy in either breast. ASSESSMENT: BIRADS Category 1: Negative mammogram. RECOMMENDATION: Bilateral screening mammogram in one year. Thank you for allowing us to participate in the care of your patient. [facility] utilizes [employer] as a reminder system to notify patients of their next recommended mammogram. > Interpreting Provider: Nidhi Mcdonald MD on 09/28/2024 8:45 AM Narrative 09/28/2024 8:45 AM BREEDING MANAGER EXAMINATION: Digital screening mammogram. Low-dose full-field digital [...] Cummings MD MAMMO ORDERABL ES * (ABNORMAL) SUREAB VAGINOSIS/VAGINITIS PLUS (05/25/2024 9:00 PM CDT) Sureswab Bacterial Vaginosis NEGATIVE NEGATIVE [facility] Yani species DETECTED(A) NOT DETECTED [facility] Yani glabrata LATRICE NOT DETECTED NOT DETECTED [facility] Comment: Yani species C. albicans, C. tropicalis, C. parapsilosis, and/or C. dubliniensis can be detected, but not differentiated, in the Yani spp. result. Trichomonas vaginalis TMA NOT DETECTED NOT DETECTED [facility] Chlamydia trachomatis RNA NOT DETECTED NOT DETECTED [facility] GC RNA NOT DETECTED NOT DETECTED [facility] Comment: For additional information, please refer to https://education.Blitsy/faq/SVC220 (This link is being provided for information/ educational purposes only.) NO COLLECTION DATE RECEIVED. WE HAVE USED THE DATE THE SPECIMEN WAS RECEIVED BY THIS LABORATORY THE COLLECTION DATE. IF THIS IS INCORRECT, PLEASE CONTACT CLIENT SERVICES. PHONE NUMBER: [phone] Test Performed at: [facility] [address] [place] [address] ??[id number] NOE CARDONA MD Microbiology VAGINAL SWAB / Unknown 05/25/2024 6:39 AM CDT Jil Ackerman LOAN APPROVER-RADIO AERIAL INSTALLER LAB - MICROBIOLOGY ORDERABLES [facility] [address] [place] [address] * (ABNORMAL) CULTURE URINE (03/23/2024 11:24 AM CDT) Only the most recent of11 resultswithin the time period is included. Culture (A) [facility] Comment: ??CULTURE, URINE, ROUTINE ?Micro Number: ?[id number] ??Test Status: ? Final ??Specimen Source: ?? Urine, clean catch ??Specimen Quality: ??Adequate ??Result: ?Greater than 100,000 CFU/mL of Escherichia coli ?E.coli ?INT ?? BRANNON ?? AMOX/CLAVULANATE ? S ? <=2 ?? AMP/SULBACTAM ?S ? <=2 ?? CEFAZOLIN ?NR ?<=4 2 ?? CEFEPIME ? S ? <=0.12 ?? CEFTAZIDIME ?S ? <=1 ?? CEFTRIAXONE ?S ? <=0.25 ?? CIPROFLOXACIN ?S ? <=0.06 ?? GENTAMICIN ? S ? <=1 ?? IMIPENEM ? S ? <=0.25 ?? LEVOFLOXACIN ? S ? <=0.12 ?? MEROPENEM ?S ? <=0.25 ?? NITROFURANTOIN ? S ? <=16 ?? PIP/TAZOBACTAM ? S ? <=4 ?? TRIMETHOPRIM/SULFA ? S ? <=20 S=Susceptible ??I=Intermediate ??R=Resistant ??* = Not Tested NR = Not Reported ??NN = See Therapy Comments THERAPY COMMENTS ?Note 1: ?For infections other than uncomplicated UTI ?caused by E. coli, K. pneumoniae or P. mirabilis: ?Cefazolin is resistant if BRANNON > or = 8 mcg/mL. ?(Distinguishing susceptible versus intermediate ?for isolates with BRANNON < or = 4 mcg/mL requires ?additional testing.) ?Note 2: ?For uncomplicated UTI caused by E. coli, ?K. pneumoniae or P. mirabilis: Cefazolin is ?susceptible if BRANNON <32 mcg/mL and predicts ?susceptible to the oral agents cefaclor, cefdinir, ?cefpodoxime, cefprozil, cefuroxime, cephalexin ?and loracarbef. Test Performed at: [facility] ??[id number] NOE CARDONA MD Urine URINE SPECIMEN OBTAINED BY CLEAN CATCH PROCEDURE / Unknown 03/23/2024 11:24 AM CDT 03/23/2024 11:24 AM CDT Dominic Liu MD LAB - MICROBIOLOGY O RDERABLES [address] [address] * CA SONO EXAM, TRANSVAGINAL (07/03/2023 10:02 AM BREEDING MANAGER) Narrative Avinash Basurto RDMS - 07/03/2023 10:02 AM BREEDING MANAGER Avinash Basurto RDMS ? 07/03/2023 10:02 AM Documentation in digisonics. hCarlotte Bliss MD PROCEDURE/MINOR SURG ICAL ORDERABLES * IMAGING RADIOLOGY XRAY RESULTS ORDER (07/03/2023) Only the most recent of4 resultswithin the time period is included. Anatomical Region Laterality Modality Other Narrative 07/03/2023 Ordered by an unspecified provider. Scanned Document IMAGING * CARDIAC RHYTHM STRIP ORDER (05/29/2023 2:46 AM CDT) Only the most recent of2 resultswithin the time period is included. Narrative 05/29/2023 2:46 AM CDT Ordered by an unspecified provider. Scanned Document CARDIAC SERVICES ORD ERABLES * GLUCOSE - POINT OF CARE (05/27/2023 10:35 AM CDT) Only the most recent of4 resultswithin the time period is included. Glucose WB/POC 102 70 - 106 mg/dL 05/27/2023 10:41 AM CDT [facility] Specimen Type Cap Fingerstick 2022 10:41 AM CDT [facility] Blood BLOOD SPECIMEN / Unknown 05/27/2023 10:35 AM CDT 05/27/2023 10:41 AM CDT Charlotte Bliss MD LAB - POINT OF CARE ORDERABLES [facility] [address] [place] [address] * PATHOLOGY TISSUE EXAM (STL) (05/27/2023 10:16 AM CDT) Only the most recent of2 resultswithin the time period is included. Case Report Surgical Pathology Report ? Case: [id number] ? Authorizing Provider: ??Charlotte Bliss, ? Collected: ? 05/27/2023 10:16 AM ? Ordering Location: ? [facility] ? Received: ?05/27/2023 11:41 AM ? Pathologist: ? Jass Gonzales, ? MD ? Specimen: ?Endometrium, endometrial sampling ? 05/28/2023 3:45 PM [facility] Final Diagnosis Endometrial biopsy: - Cystic atrophy - Partial decidualization consistent with hormonal therapy - No atypical hyperplasia or carcinoma identified 05/28/2023 3:45 PM [facility] Clinical History 77-year-old female with postmenopausal bleeding concurrently receiving Provera 20 mg daily. 05/28/2023 3:45 PM [facility] Gross Description The specimen is identified with patient's name and date of . Received in formalin, specimen A endometrial sampling? is an aggregate of pink-white tissues (2 x 1.7 x 0.3 cm). Entirely submitted in cassette A1. LJ 05/28/2023 3:45 PM [facility] Microscopic Description Microscopic examination substantiates the above diagnosis. 05/28/2023 3:45 PM [facility] Pathologist Location at [facility] 05/28/2023 3:45 PM [facility] Disclaimer All histochemical and/or immunohistochemical results are interpreted with controls that demonstrate appropriate staining reactions before reporting results. Note on use of immunocytochemistry reagents: This test was developed and its performance characteristic determined by [facility], Department of Laboratory Medicine. It has not been cleared or approved by the U.S. Food and Drug Administration (FDA). The FDA has determined that such clearance or approval is not necessary. The test is used for clinical purpose. It should not be regarded as investigational or for research. This laboratory is certified to perform high complexity testing. The performance characteristics of the IHC/JACINDA assays have been validated on formalin-fixed paraffin embedded tissues only. The assays have not been validated on decalcified tissues. Results should be interpreted with caution. 05/28/2023 3:45 PM [facility] Embedded Images 05/28/2023 3:45 PM [facility] Pathology/Cytolo gy ENTIRE ENDOMETRIUM / Unknown 05/27/2023 10:16 AM CDT 05/27/2023 11:41 AM CDT Comment:Pre-op diagnosis: Diagnosis unknown [R69] Charlotte Bliss MD LAB - PATHOLOGY/CYTO LOGY ORDERABLES [facility] [address] [place] [address] * LARYNGEAL MASK AIRWAY (05/27/2023 9:46 AM CDT) Narrative Ziyad Shin APRN-CRNA - 05/27/2023 9:46 AM CDT Ziyad Shin APRN-CRNA ? 05/27/2023 ??9:46 AM LMA Placement Procedure/LDA Note: Patient Location: OR. Procedure: LMA. Pretreatment: 100% O2 Induction: standard IV Patient position: supine. Mask Ventilation: not attempted Type: ??LMA Size: ??4 Number of Attempts: 1. Placement verified by: bilateral breath sounds, chest auscultation and CO2 monitor Dentition unchanged? ??Yes Staff Section ? Anesthesia Provider: Ziyad Shin APRN-CRNA, Performed the procedure Nguyen Presley MD GENERAL ANESTHESIA O RDERABLES * MAMMOGRAM (04/16/2023) Anatomical Region Laterality Modality Other Historical Provider SCANNING ONLY * CA BIOPSY OF UTERUS LINING (01/19/2023 4:46 PM CDT) Narrative Charlotte Bliss MD - 01/19/2023 4:46 PM CDT Charlotte Bliss MD ? 01/19/2023 ??4:47 PM Endometrial biopsy After informed consent was obtained, Speculum was placed in the vagina Three betadine swabs were used to cleanse the cervix A single toothed tenaculum was placed on the anterior lip of the cervix. The Pipelle was then passed thru the uterine cervix The uterus sounded to 7 cm Dark blood filled first pass, min tissue returned on second pass. The cervix was hemostatic with pressure. The specimen was sent to pathology. Charlotte Bliss MD PROCEDURE/MINOR SURG ICAL ORDERABLES * PATHOLOGY TISSUE (01/15/2023 3:59 PM CDT) Only the most recent of2 resultswithin the time period is included. Case Report Surgical Pathology Report ? Case: [id number] ? Authorizing Provider: ??Charlotte Bliss MD ? Collected: ? 01/15/2023 03:59 PM ? Ordering Location: ? [facility] - ??Received: ?01/16/2023 11:46 AM ? [facility] ? Pathologist: ? Alcides Webster MD ? Specimen: ?Endometrium, EMB ? 01/21/2023 11:42 AM CDT [facility] Final Diagnosis Endometrium, biopsy: - Endometrial tissue with abundant hemosiderin-laden macrophages admixed with fragments of benign endocervical tissue - Negative for hyperplasia, atypia or malignancy 01/21/2023 11:42 AM [facility] Microscopic Description and Comment Microscopic examination substantiates the final diagnosis. 01/21/2023 11:42 AM [facility] Clinical History The patient is a 77 year-old woman with a history of endometrial simple hyperplasia without atypia on progesterone who presented for follow-up. 01/21/2023 11:42 AM [facility] Gross Description The requisition and specimen(s) are identified with the patient's name Ankita Kelley. Received in formalin, specimen A, EMB , are multiple prakash-brown, irregular soft tissue fragments mixed with mucus aggregating to 2.5 x 2.5 x 0.4 cm. Filtered through a biopsy bag and submitted in toto in A1./MF 01/21/2023 11:42 AM [facility] Pathologist Location at [facility] 01/21/2023 11:42 AM [facility] Disclaimer The performance characteristics of all immunohistochemical and indirect immunofluorescence stains (if any) cited in this report were determined by the Histopathology Laboratory of [facility]. Some of these tests were developed by our own laboratory and have not been cleared or approved by the US Food and Drug Administration. The FDA does not require this test to go through premarket FDA review. These tests are used for clinical purposes. They should not be regarded as investigational or for research. This laboratory is certified under the Clinical Laboratory Improvement Amendments (CLIA) as qualified to perform high complexity clinical laboratory testing. This case has been personally reviewed and interpreted by the attending (teaching) pathologist. 01/21/2023 11:42 AM [facility] Embedded Images 01/21/2023 11:42 AM [facility] Pathology/Cytolo gy ENTIRE ENDOMETRIUM / Unknown 01/15/2023 3:59 PM CDT 01/16/2023 11:46 AM CDT Charlotte Bliss MD LAB - PATHOLOGY/CYTO LOGY ORDERABLES [facility] [address] [place], [place] [id number] [place] [address] * LARYNGEAL MASK AIRWAY (04/08/2022 9:16 AM CDT) Narrative Guille Rod MD - 04/08/2022 9:16 AM CDT Guille Rod MD ? 04/08/2022 ??9:17 AM LMA Placement Procedure/LDA Note: Patient Location: OR. LMA Insertion Date/Time: ??04/08/2022 9:11 AM Procedure: LMA. Pretreatment: 100% O2 Induction: standard IV Patient position: sniffing. Mask Ventilation: easy Type: ??LMA Size: ??4 Number of Attempts: 1. Cuff volume (mL): ??5 Placement verified by: CO2 monitor Dentition unchanged? ??Yes Procedure Start Time: 04/08/2022 9:11 AM. Procedure End Time: 04/08/2022 9:12 AM. Procedure Total Time: 1 ??minutes. Staff Section ? Anesthesia Provider: Guille Rod MD, Performed the procedure Guille Rod MD GENERAL ANESTHESIA ORDERABLES * (ABNORMAL) BASIC METABOLIC PANEL (CALCIUM TOTAL) (04/08/2022 7:28 AM CDT) Glucose 119(H) 70 - 105 mg/dL 04/08/2022 7:55 AM CDT [facility] Sodium 139 136 - 145 mmol/L 04/08/2022 7:55 AM CDT [facility] Potassium 4.6 3.5 - 5.1 mmol/L 04/08/2022 7:55 AM CDT [facility] Chloride 108(H) 98 - 107 mmol/L 04/08/2022 7:55 AM CDT [facility] CO2 16(L) 23 - 31 mmol/L 04/08/2022 7:55 AM CDT [facility] Calcium 9.8 8.4 - 10.4 mg/dL 04/08/2022 7:55 AM CDT [facility] Anion Gap 15 8 - 18 mmol/L 04/08/2022 7:55 AM CDT [facility] BUN 20 9.8 - 20.1 mg/dL 04/08/2022 7:55 AM CDT [facility] Creatinine 1.02 0.57 - 1.11 mg/dL 04/08/2022 7:55 AM CDT [facility] eGFR by CKD-EPI 57(L) >=90 mL/min/1.7 3 m2 04/08/2022 7:55 AM CDT [facility] Blood BLOOD SPECIMEN / Unknown Venipuncture / Unknown 04/08/2022 7:28 AM CDT 04/08/2022 7:31 AM CDT Charlotte Bliss MD LAB - CHEMISTRY ELIANE JUNIOR [facility] Organization Address City/State/ZIP Co de Phone Number [facility] [address] [place] [address] * CA SONO EXAM, TRANSVAGINAL (02/13/2022 1:44 PM CDT) Narrative Maame Figueroa RDMS - 02/13/2022 1:44 PM CDT Maame Figueroa RDMS ? 02/13/2022 ??1:44 PM Documentation in digisonics. Charlotte Bliss MD PROCEDURE/MINOR SURG ICAL ORDERABLES * CA BIOPSY OF UTERUS LINING (11/12/2021 7:48 PM CDT) Narrative Charlotte Bliss MD - 11/12/2021 7:48 PM CDT Charlotte Bliss MD ? 11/12/2021 ??7:49 PM Endometrial biopsy After informed consent was obtained, Speculum was placed in the vagina a cervical polyp was noted It was graspsed with a ring forcep and twisted until removed It was placed in formalin to send to path Two betadine swabs were used to cleanse the cervix A single toothed tenaculum was placed on the anterior lip of the cervix. The Pipelle was then passed thru the uterine cervix The uterus sounded to 9 cm Mod tissue returned. The cervix was hemostatic with pressure. The specimen was sent to pathology. Charlotte Bliss MD PROCEDURE/MINOR SURG ICAL ORDERABLES * CA SONO EXAM, TRANSVAGINAL (09/03/2021 1:18 PM BREEDING MANAGER) Narrative Avinash Basurto RDMS - 09/03/2021 1:18 PM BREEDING MANAGER Avinash Basurto RDMS ? 09/03/2021 ??1:18 PM Documentation in digisonics. Charlotte Bliss MD PROCEDURE/MINOR SURG ICAL ORDERABLES * CA CYSTOURETHROSCOPY (10/19/2018 3:12 PM BREEDING MANAGER) Narrative Dominic Liu Che, MD - 10/19/2018 3:12 PM BREEDING MANAGER Dominic Liu Che, MD ? 10/19/2018 ??3:12 PM Cystoscopy Procedure Note Indications: frequency and urgency Procedure Details: The patient was counseled about the procedure including risks, benefits, alternatives, and given a detailed description of what to expect. Cystoscopy was performed with a rigid 70 degree cystoscopy with a 17F sheath under aseptic conditions. The urethra was cleaned with Betadine solution (unless she was allergic to topical iodine when hibiclens was used). A careful examination of all quadrants was performed in a systematic fashion. The patient tolerated the procedure well and was allowed to watch the examination on a video monitor. Urethral visualization was also done. Findings: She was found to have trabeculations and bladder diverticula. Efflux was noted from the both ureteral orifice. Squamous metaplasia was noted. No stones or other lesions. Condition: ??Good Complications: ??None Dominic Liu MD PROCEDURE/MINOR SURG ICAL ORDERABLES * CULTURE URINE COMPREHENSIVE (10/19/2018 2:45 PM BREEDING MANAGER) Only the most recent of2 resultswithin the time period is included. Culture [facility] Comment: ??CULTURE, URINE, SPECIAL ?MICRO NUMBER: ?[id number] ??TEST STATUS: ? FINAL ??SPECIMEN SOURCE: ?? URINE, CATHETER ??SPECIMEN QUALITY: ??ADEQUATE ??RESULT: ?No Growth Test Performed at: [facility] ??[id number] NOE CARDONA MD Microbiology URINE SPECIMEN COLLECTION, CATHETERIZED / Unknown 10/19/2018 2:45 PM BREEDING MANAGER 10/20/2018 2:09 AM BREEDING MANAGER Dominic Liu MD LAB - MICROBIOLOGY O RDERABLES [facility] [id number] [place] [address] * CA INSERT NON-INDWELLING BLADDER (09/10/2018 3:38 PM BREEDING MANAGER) Narrative Dominic Liu Che, MD - 09/10/2018 3:38 PM BREEDING MANAGER Dominic Liu Che, MD ? 09/10/2018 ??3:38 PM Please look at progress note for details for the visit. Dominic Liu MD PROCEDURE/MINOR SURG ICAL ORDERABLES * (ABNORMAL) URINALYSIS - POINT OF CARE (09/10/2018) Clarity UA POCT cloudy Color UA POCT ashely Leukocyte UA + Negative Nitrite UA POCT neg Negative Urobilinogen UA 0.1 0.1 - 1.0 Protein UA POCT neg Negative pH UA 5.0 5.0 - 8.0 pH units Blood UA + Negative Specific [place] UA POCT 1.010 1.002 - 1.030 Ketone UA neg Negative Bilirubin UA POCT neg Negative Glucose UA neg Negative Urine URINE / Unknown 09/10/2018 Dominic Liu MD LAB - POINT OF CARE ORDERABLES * CA INSERT NON-INDWELLING BLADDER (03/21/2018 9:06 PM CDT) Narrative Roxana Baer APRN-RADIO AERIAL INSTALLER - 03/21/2018 9:06 PM CDT Roxana Baer APRN-RADIO AERIAL INSTALLER ? 03/21/2018 ??9:06 PM Urethra cleaned well with Betadine. Straight Fr 8 catheter inserted. PVR=30ml. Roxana Baer APRN-RADIO AERIAL INSTALLER PROCEDURE /MINOR SURGICAL ORDERABLES * URINALYSIS - POINT OF CARE (AMB) [facility] (03/03/2018) Specific [place] UA 1.010 pH UA 6 WBC UA neg Nitrite UA neg Protein UA neg Glucose UA neg Ketones UA POCT neg Urobilinogen UA neg Bilirubin UA POCT neg Blood Urine POCT trace Urine URINE / Unknown 03/03/2018 Roxana Baer APRN-RADIO AERIAL INSTALLER LAB - POI NT OF CARE ORDERABLES * (ABNORMAL) URINALYSIS W/MICROSCOPIC NO CULTURE (03/03/2018) Color UA YELLOW YELLOW [facility] Appearance CLEAR CLEAR [facility] Specific [place] UA 1.023 1.001 - 1.035 [facility] pH UA 6.0 5.0 - 8.0 [facility] Glucose UA NEGATIVE NEGATIVE [facility] Bilirubin UA NEGATIVE NEGATIVE [facility] Ketone UA NEGATIVE NEGATIVE [facility] Blood UA TRACE(A) NEGATIVE [facility] Protein UA NEGATIVE NEGATIVE [facility] Nitrite UA NEGATIVE NEGATIVE [facility] Leukocyte UA NEGATIVE NEGATIVE [facility] WBC UA NONE SEEN < OR = 5 /HPF [facility] RBC UA 0-2 < OR = 2 /HPF [facility] Epithelial Cell UA NONE SEEN < OR = 5 /HPF [facility] Bacteria UA NONE SEEN NONE SEEN /HPF [facility] Hyaline Casts NONE SEEN NONE SEEN /LPF [facility] Comment: Test Performed at: [facility] [id number] [place], [place] ??[id number] PAOLA MACIEL DO,MPH Urine URINE SPECIMEN OBTAINED BY SINGLE CATHETERIZATION OF URINARY BLADDER / Unknown 03/03/2018 03/04/2018 9:14 AM CDT Roxana Baer APRN-RADIO AERIAL INSTALLER LAB - URI NALYSIS ORDERABLES Performing Organization Address City/State/[facility] [[email or web address]] Co de Phone Number [facility] [address] [phone] * ZION SCREENING DIGITAL IMAGE BILATERAL G0202 (10/15/2016 11:10 AM BREEDING MANAGER) Only the most recent of8 resultswithin the time period is included. Anatomical Region Laterality Modality Breast Bilateral Mammography 10/15/2016 1:13 PM BREEDING MANAGER Impressions 10/15/2016 1:17 PM BREEDING MANAGER No mammographic evidence of malignancy in either breast. ASSESSMENT: BI-RADS category 1, negative mammogram. RECOMMENDATION: Bilateral screening mammogram in one year. Thank you for allowing us to participate in the care of your patient. [facility] [place] utilizes [employer] as a reminder system to notify patients of their next recommended mammogram. Narrative 10/15/2016 1:17 PM BREEDING MANAGER EXAMINATION: Digital screening mammogram on 10/15/2016. Low-dose full-field digital breast tomosynthesis examination was performed with 3D acquisitions and synthetic/reconstructed images. Computer assisted detection was utilized. PRIOR: Multiple prior mammograms, most recently 09/07/2015 . FINDINGS: Breast parenchymal density: The breast tissue demonstrates a fibrofatty architecture. No suspicious masses, areas of architectural distortion or microcalcifications are evident ??on 3D images. ??There has been no significant interval change since the prior examination. Charlotte Bliss MD MAMMO ORDERABLES * PATHOLOGY/GENETICS HISTORICAL-ONBASE (10/01/2015) Only the most recent of7 resultswithin the time period is included. 10/01/2015 [facility] - 10/03/2015 3:56 PM BREEDING MANAGER Charlotte Bliss MD LAB - CHEMISTRY ELIANE JUNIOR Performing Organization Address City/[facility]/ZIP Co de Phone Number [address] * PAP IMAGE-GUIDED LIQUID BASE W HPV (10/01/2015 12:00 AM BREEDING MANAGER) Only the most recent of2 resultswithin the time period is included. Pap Image-Guided Liquid-Based with HPV Specimen:Endocervi andrei ThinPrep Slides:1 SPECIMEN ADEQUACY: SATISFACTORY FOR EVALUATION - No Endocervical / Transformation Zone Component Present INTERPRETATION: NEGATIVE FOR INTRAEPITHELIAL LESION OR MALIGNANCY OTHER FINDINGS: - Atrophic Changes NOTE(S): HPV DIRECT - HPV Result to Follow This specimen was evaluated by the ThinPrep Imaging System along with an additional manual rescreening by a senior biostatistician/group leader and/or pathologist Initial Evaluation performed by Kem MONTERROSO([facility]). Electronically signed 10/04/2015 Interpretation performed by Lobo MONTERROSO([facility]). Electronically signed 10/04/2015 [facility] ([email or web address]) Endocervical 10/01/2015 10/02/2015 12:21 PM BREEDING MANAGER Narrative [facility] ([facility]) - 10/04/2015 4:21 PM BREEDING MANAGER Clinical Information:->menopausal Charlotte Bliss MD LAB - PATHOLOGY/CYTO LOGY ORDERABLES [facility] ([facility]) * ZION DIAG DIRECT DIGITAL IMAGE UNI RIGHT [id number] (07/11/2011 10:35 AM BREEDING MANAGER) Anatomical Region Laterality Modality Right Mammography 07/11/2011 10:3 8 AM BREEDING MANAGER Narrative 07/11/2011 10:38 AM BREEDING MANAGER EXAMINATION: Right digital diagnostic mammogram ??on 07/11/2011 INDICATION: Possible new nodules ELEVATOR PILOT: RT José Antonio, SUJATHA FINDINGS: Computer assisted detection was not utilized. ??The tissue density is fatty. ??Spot compression views of the right breast demonstrate no new abnormality. Benign appearing rounded calcifications are ??scattered in the right breast. ASSESSMENT: BIRADS Category 2: ?? Benign finding(s).. RECOMMENDATION: Followup mammogram in one year . Procedure Note Yue Mcdonald MD - 07/11/2011 EXAMINATION: Right digital diagnostic mammogram on 07/11/2011 INDICATION: Possible new nodules ELEVATOR PILOT: RT Chou RM FINDINGS: Computer assisted detection was not utilized. The tissue density is fatty. Spot compression views of the right breast demonstrate no new abnormality. Benign appearing rounded calcifications are scattered in the right breast. ASSESSMENT: BIRADS Category 2: Benign finding(s).. RECOMMENDATION: Followup mammogram in one year . Maurice Fisher MD MAMMO ORDERABLES * DEXA BONE DENSITY 2 SITES (07/07/2011 1:55 PM BREEDING MANAGER) Anatomical Region Laterality Modality Nuclear Medicine 07/07/2011 3:24 PM BREEDING MANAGER Impressions 07/07/2011 3:24 PM BREEDING MANAGER 1. ??Normal bone densitometry of the lumbar spine and hips. Narrative 07/07/2011 3:24 PM BREEDING MANAGER Bone densitometry of the lumbar spine and [...] and hips. Maurice Fisher MD DEXA ORDERABLES * PAP THINPREP (05/02/2009) Cervical swab (specimen) PART OF UTERINE CERVIX / Unknown 05/02/2009 Narrative [facility] - 05/25/2009 9:32 AM CDT Preferred Lab:->OTHER EXTERNAL LAB Historical Provider LAB - PATHOLOGY/C YTOLOGY ORDERABLES [facility] * (ABNORMAL) PAP SMEAR 1 SLIDE (08/24/1998 12:00 AM BREEDING MANAGER) Pap Smear [facility]NL [facility] Other (qualifier value) 08/24/1998 Narrative [facility] - 08/24/1998 12:00 AM BREEDING MANAGER This external order was created through the Results Console. Historical Provider LAB - PATHOLOGY/C YTOLOGY ORDERABLES [facility] Care Teams Machine Silk Screen Printer Relationship Specialty Start Date End Date Jung Cummings MD [address] [facility] [address] [place] [address] PCP - General Family Medicine 05/24/24
--- OUTSIDE RECORDS SUMMARY | 2024-09-28 12:45 | XMS_ITS | Encounter Summary ---
Author Organization [facility] Address [address] [place] [address] Phone Care Team Providers Care Rehabilitation Worker Name Role Phone Saturnino Cummings MD Primary Care Provide r Jung Cummings MD Primary Care Provider Encounter Details Date Type Department Care Team (Latest Contact Info) Description 04/30/2023 Orders Only [facility] IM CARDIOLOGY Scanning, Provider Social History Tobacco Use Types Packs/Day Years Used Date Smoking Tobacco: Former Smokeless Tobacco: Never Comments Unknown Sex and Gender Information Value Date Recorded Sex Assigned at Not on file Legal Sex Female 1:21 AM RN NEW GRADUATE Gender Identity Not on file Sexual Orientation Not on file documented as of this encounter Plan of Treatment Not on file documented as of this encounter Procedures Procedure Name Priority Date/Time Associated Diagnosis Comments CARDIOLOGY DOCUMENT SCAN 04/30/2023 documented in this encounter Results * CARDIOLOGY DOCUMENT SCAN (04/30/2023) Anatomical Region Laterality Modality Other us Provider Scanning [facility] CARDIAC SERVICES PROCEDURES Final Result documented in this encounter Visit Diagnoses Not on filedocumented in this encounter Care Teams Rehabilitation Worker Relationship Specialty Start Date End Date Satunrino Cummings MD [address] [facility] [place] [address] PCP - General 04/22/17 03/06/24 Jung Cummings MD [facility] [place] [address] [place] [address] PCP - General Family Practice 03/07/24 documented as of this encounter
--- OUTSIDE RECORDS SUMMARY | 2024-09-28 12:45 | XMS_ITS | Encounter Summary ---
Author Organization [facility] Address [address] [place] [address] Phone Care Team Providers Care Non Linear Editor Name Role Phone Saturnino Cummings MD Primary Care Provide r Jung Cummings MD Primary Care Provider Encounter Details Date Type Department Care Team (Latest Contact Info) Description 05/10/2023 Orders Only [facility] IM CARDIOLOGY Scanning, Provider Social History Tobacco Use Types Packs/Day Years Used Date Smoking Tobacco: Former Smokeless Tobacco: Never Comments Unknown Sex and Gender Information Value Date Recorded Sex Assigned at Not on file Legal Sex Female 1:21 AM COMMUNITY ADVOCATE Gender Identity Not on file Sexual Orientation Not on file documented as of this encounter Plan of Treatment Not on file documented as of this encounter Procedures Procedure Name Priority Date/Time Associated Diagnosis Comments CARDIOLOGY DOCUMENT SCAN 05/10/2023 documented in this encounter Results * CARDIOLOGY DOCUMENT SCAN (05/10/2023) Anatomical Region Laterality Modality Other us Provider Scanning CV CARDIAC SERVICES PROCEDURES Final Result documented in this encounter Visit Diagnoses Not on filedocumented in this encounter Care Teams Non Linear Editor Relationship Specialty Start Date End Date Saturnino Cummings MD [address] [facility] [place] [address] PCP - General 04/22/17 03/06/24 Jung Cummings MD [facility] [address] [place] [address] PCP - General Family Practice 03/07/24 documented as of this encounter
[2024-09-28 14:11] LABS: Basophils Absolute Auto 0.1 K/mm3 (0.0-0.1); Basophils Percent Auto 0.8 % (0.2-1.2); Eosinophils Absolute Auto 0.1 K/mm3 (0-0.3); Eosinophils Percent Auto 0.7 % (0-4.4); Hematocrit 46.7 % (37.0-47.0); Hemoglobin 15.3 g/dL (12.0-15.0); Immature Granulocyte Absolute 0.02 K/mm3 (0.00-0.031); Immature Granulocyte Percent A 0.2 % (0-0.5); Lymphocytes Percent Auto 36.1 % (18.3-44.2); Mean Corpuscular HGB Conc 32.8 g/dl (32-36); Mean Corpuscular Hemoglobin 30.8 pg (26-34); Mean Platelet Volume 10.9 fl (7.4-10.4); Monocytes Absolute Auto 0.7 K/mm3 (0.1-0.6); Monocytes Percent Auto 7.7 % (2.6-8.5); Neutrophils Absolute Auto 5.1 K/mm3 (1.3-6.7); Neutrophils Percent Auto 54.5 % (45.5-73.1); Platelet Count Result 234 k/mm3 (150-375); Red Blood Count 4.97 M/mm3 (4.2-5.4); White Blood Count 9.4 K/mm3 (4.5-10.0)
[2024-09-28 16:16] LABS: Microalbumin Urine Random 7.1 mg/L (0-16.7)
[2024-09-28 16:19] LABS: Creatinine Urine 100.4 mg/dL; MALB Creatinine Ratio 7.1 mg/g (0-30)
[2024-09-28 16:24] LABS: Alanine Aminotransferase 17 U/L (6-35); Albumin Level 4.6 g/dL (3.5-5.1); Alkaline Phosphatase 53 U/L (38-126); Anion Gap 11 mmol/L (4-12); Aspartate Amino Transferase 30 U/L (14-36); Bilirubin,Total 0.8 mg/dL (0.2-1.3); Blood Urea Nitrogen 15 mg/dL (7-17); Carbon Dioxide 29 mmol/L (22-30); Chloride 103 mmol/L (98-107); Cholesterol 175 mg/dL (0-200); Estimated Glomerular Filt Rate > 60; Glucose 93 mg/dL (65-110); HDL Direct 55 mg/dL; Sodium 143 mmol/L (137-145); Triglycerides 218 mg/dL (<150)
[2024-09-28 16:35] LABS: LDL Cholesterol Direct 85 mg/dL
[2024-09-28 17:03] LABS: Vitamin D 25 Hydroxy 32.5 ng/mL
[2024-09-28 17:29] LABS: Hemoglobin A1C 6.3 % (<5.7)
== END 2024-09-28 11:03 | disposition home or self-care (01) ==
PROVIDERS: PCP Family Medicine; Visit Provider Family Medicine
DX: E78.5 Hyperlipidemia, unspecified (principal); I10 Essential (primary) hypertension; E11.9 Type 2 diabetes mellitus without complications; E55.9 Vitamin D deficiency, unspecified; I48.0 Paroxysmal atrial fibrillation; E53.8 Deficiency of other specified B group vitamins
CPT/HCPCS: 36415; 80053; 80061; 82043; 82306; 82607; 83036; 84443; 85025

== ENCOUNTER 2025-01-06 19:15 | Outpatient (NON) | payer MEDICARE, BC, SELFPAY ==
--- OUTSIDE RECORDS SUMMARY | 2025-01-06 19:20 | XMS_ITS | Clinical Summary ---
Author Organization [facility] Address [address] [place] [id number] Care Team Providers Care Locomotive Mechanic Name Role Phone Unavailable Primary Care Provider Unavailabl e Social History Tobacco Use Types Packs/Day Years Used Date Smoking Tobacco: Never Assessed Comments Unknown Sex and Gender Information Value Date Recorded Sex Assigned at Not on file Legal Sex Female 7:07 PM CDT Gender Identity Not on file Sexual Orientation Not on file Plan of Treatment Health Maintenance Due Date Last Done Comments DTaP, Tdap and Td Vaccines ( 1 - Tdap) 12/14/1964 Pneumococcal Vaccine: 50+ Ye ars (1 of 1 - PCV) 1994 Zoster Vaccines (1 of 2) 1994 Dexa Scan (General) 2009 RSV Immunization or 60+ Years (1 - 1-dose 75+ series) 12/14/2019 COVID-19 Vaccine (2023-2 5 season) 2024 Meningococcal B Vaccine Aged Out No l onger eligible based on patient's age to complete this topic Meningococcal Vaccine Aged Out No geoffrey tisha eligible based on patient's age to complete this topic RSV Immunizations Under 20 Months Aged Out No longer eligible based on patient's age to complete this topic
[2025-01-06 20:01] LABS: Alanine Aminotransferase 21 U/L (6-35); Albumin Level 4.9 g/dL (3.5-5.1); Alkaline Phosphatase 52 U/L (38-126); Anion Gap 10 mmol/L (4-12); Aspartate Amino Transferase 57 U/L (14-36); Bilirubin,Total 0.7 mg/dL (0.2-1.3); Blood Urea Nitrogen 27 mg/dL (7-17); Calcium 9.7 mg/dL (8.4-10.2); Carbon Dioxide 26 mmol/L (22-30); Chloride 105 mmol/L (98-107); Estimated Glomerular Filt Rate > 60; Glucose 113 mg/dL (65-110); Potassium 4.3 mmol/L (3.4-5.0); Sodium 141 mmol/L (137-145)
[2025-01-06 20:05] LABS: Hemoglobin A1C 6.1 % (<5.7)
== END 2025-01-06 19:16 | disposition home or self-care (01) ==
LOC: ANHLAB 19:18
PROVIDERS: PCP Family Medicine; Visit Provider Family Medicine
DX: E11.9 Type 2 diabetes mellitus without complications (principal); I10 Essential (primary) hypertension; E53.8 Deficiency of other specified B group vitamins
CPT/HCPCS: 36415; 80053; 82607; 83036

== ENCOUNTER 2025-03-07 12:47 | Outpatient (CLI) | payer MEDICARE, BC, SELFPAY ==
--- OUTSIDE RECORDS SUMMARY | 2025-03-07 12:56 | XMS_ITS | Clinical Summary ---
Author Organization [facility] Address [address] [place] [address] Care Team Providers Care Zipper Setter Name Role Phone Unavailable Primary Care Provider [...] Vaccine ( - 2023-2 5 season) 2024 Meningococcal B Vaccine Aged Out No l onger eligible based on patient's age to complete this topic Meningococcal Vaccine Aged Out No geoffrey tisha eligible based on patient's age to complete this topic RSV Immunizations Under 20 Months Aged Out No longer eligible based on patient's age to complete this topic
[2025-03-07 15:07] LABS: Alanine Aminotransferase 21 U/L (6-35); Albumin Level 4.7 g/dL (3.5-5.1); Alkaline Phosphatase 49 U/L (38-126); Anion Gap 11 mmol/L (4-12); Aspartate Amino Transferase 43 U/L (14-36); Bilirubin,Total 0.7 mg/dL (0.2-1.3); Blood Urea Nitrogen 19 mg/dL (7-17); Calcium 9.9 mg/dL (8.4-10.2); Carbon Dioxide 25 mmol/L (22-30); Chloride 104 mmol/L (98-107); Estimated Glomerular Filt Rate 57; Glucose 110 mg/dL (65-110); Potassium 4.8 mmol/L (3.4-5.0); Sodium 140 mmol/L (137-145); Total Protein 7.8 g/dL (6.3-8.2)
[2025-03-07 15:33] LABS: Thyroid Stimulating Hormone Reflex 2.690 uIU/mL (0.465-4.68)
== END 2025-03-07 12:48 | disposition home or self-care (01) ==
LOC: ANHGOSHLAB 12:48
PROVIDERS: PCP Family Medicine; Visit Provider Family Medicine
DX: E03.9 Hypothyroidism, unspecified (principal); I10 Essential (primary) hypertension; R74.01 Elevation of levels of liver transaminase levels
CPT/HCPCS: 36415; 80053; 84443